=== PATIENT | male | born 1965 | race Caucasian/White ===

== ENCOUNTER 2020-05-30 11:17 | Inpatient (IN) | payer BC, OTHER ==
--- NOTE | 2020-05-30 11:23 | PDOC ---
Rapid Medical Evaluation Time Seen by Provider: 05/30/20 11:21 Medical Evaluation: Allergies Allergy/AdvReac Type Severity Reaction Status Date / Time No Known Allergies Allergy Verified 05/30/20 11:21 05/30/20 11:21 CC: sent by dr foote for partial amputation of 2nd toe of rt foot , infection x 3 months ExaM: ortho shoe to rt foot. 2nd te covered PlaN: labs, Discharge Disposition - Diagnosis Toe infection - Referrals - Patient Instructions - Post Discharge Activity
--- NOTE | 2020-05-30 12:26 | EKG ---
Test Reason : Blood Pressure : / mmHG Vent. Rate : 075 BPM Atrial Rate : 075 BPM P-R Int : 148 ms QRS Dur : 122 ms QT Int : 366 ms P-R-T Axes : 043 -23 010 degrees QTc Int : 408 ms NORMAL SINUS RHYTHM INFERIOR INFARCT , AGE UNDETERMINED ABNORMAL ECG NO PREVIOUS ECGS AVAILABLE Confirmed by KELSEY FARIAS MD ([id number]) on 05/30/2020 12:26:33 PM Referred By: Confirmed By:KELSEY FARIAS MD
[2020-05-30] MEDS ORDERED: PIPERACILLIN/TAZOB 3.375 GM 3.375 GM in DEXTROSE 5%-WATER - 50 ML IVPB ONE (12:27)
[2020-05-30] MEDS ORDERED: VANCOMYCIN 1 GM in D5W (PRE-DOCKED) 1,000 MG/250 ML IVPB ONE (12:27)
--- NOTE | 2020-05-30 12:27 | PDOC ---
History of Present Illness - General Chief Complaint: Wound Stated Complaint: SENT BY PCP Time Seen by Provider: 05/30/20 11:21 - History of Present Illness Initial Comments: Dat Mendieta is a 54 y/o male with PMH significant for DM, HTN, lower extremity stents, s/p right great toe amputation, right second toe osteomyelitis for the past several months, seen at the wound center and hyperbaric center, sent in by Dr. Lawson today for admission for partial amputation of right 2nd toe for osteo and non healing wound. Denies fever/chills. Denies chest pain/shortness of breath. Denies abd pain. Denies back pain. Denies leg swelling. Denies bleeding or discharge from the toe. Took xarelto and plavix this morning. Past History - Medical History Allergies/Adverse Reactions: Allergies Allergy/AdvReac Type Severity Reaction Status Date / Time No Known Allergies Allergy Verified 05/30/20 11:21 Home Medications: Ambulatory Orders Atorvastatin Ca [Lipitor] 20 mg PO HS 10/13/19 Cinnamon Bark [Cinnamon] 1 tab PO DAILY 10/13/19 Clopidogrel Bisulfate [Plavix] 75 mg PO DAILY 10/13/19 Empagliflozin [Jardiance] 10 mg PO DAILY 10/13/19 Gabapentin 300 mg PO BID 10/13/19 Lisinopril 10 mg PO DAILY 10/13/19 Metformin HCl [Glucophage] 1,000 mg PO BID 10/13/19 Metoprolol Succinate 1 tab PO DAILY 10/13/19 Rivaroxaban [Xarelto] 2.5 mg PO BID 10/13/19 Sitagliptin Phosphate [Januvia] 100 mg PO DAILY 10/13/19 Vitamin D - 1 tab PO DAILY 10/13/19 Anemia: No Asthma: No Cancer: No Cardiac Disorders: No CVA: No COPD: No CHF: No Dementia: No Diabetes: Yes GI Disorders: No Disorders: No HTN: Yes Hypercholesterolemia: Yes Liver Disease: No Seizures: No Thyroid Disease: No - Surgical History Abdominal Surgery: No Appendectomy: No Cardiac Surgery: No Cholecystectomy: No Lung Surgery: No Neurologic Surgery: No Orthopedic Surgery: Yes (left foot titanium) - Immunization History Immunization Up to Date: Yes - Psycho-Social/Smoking History Smoking History: Never smoked Have you smoked in the past 12 months: No If you are a former smoker, when did you quit?: 3 yrs ago - Substance Abuse Hx (Audit-C & DAST Scrn) How often the patient has a drink containing alcohol: Never Score: In Men: 4 or > Positive; In Women: 3 or > Positive: 0 Screen Result (Pos requires Nsg. Audit-10AR): Negative In the last yr the pt used illegal drug/Rx for NonMed reason: No Score: Yes response is considered Positive: 0 Screen Result (Positive result requires Nsg. DAST-10): Negative Review of Systems - Review of Systems Able to Perform ROS?: Yes Constitutional: No: Chills, Diaphoresis, Fever, Weakness HEENTM: No: Ear Discharge, Nose Bleeding, Throat Pain, Throat Swelling Respiratory: No: Cough, Shortness of Breath Cardiac (ROS): No: Chest Pain, Edema, Lightheadedness, Palpitations, Syncope ABD/GI: No: Abdominal Distended, Abd. Pain w/ defecation, Nausea, Vomiting : No: Burning, Dysuria, Discharge, Frequency, Flank Pain, Hematuria, Incontinence Musculoskeletal: No: Back Pain, Joint Swelling, Joint Stiffness Integumentary: Yes: Lesions (non healing ulcers over 2nd right toe ). No: Bruising Neurological: No: Headache, Numbness, Tremors Psychiatric: No: Frequent Crying, Change in Appetite Endocrine: No: Intolerance to Cold, Intolerance to Heat Hematologic/Lymphatic: No: Anemia *Physical Exam - Vital Signs Last Vital Signs Temp Pulse Resp BP Pulse Ox 82 20 138/79 100 05/30/20 11:22 05/30/20 11:22 05/30/20 11:22 05/30/20 11:22 - Physical Exam General Appearance: Yes: Nourished, Appropriately Dressed. No: Apparent Distress HEENT: positive: EOMI, ANTONELLA, Normal ENT Inspection Neck: positive: Trachea midline, Normal Thyroid, Supple. negative: Tender, Rigid Respiratory/Chest: positive: Lungs Clear, Normal Breath Sounds. negative: Chest Tender, Respiratory Distress, Accessory Muscle Use Cardiovascular: positive: Regular Rhythm, Regular Rate Vascular Pulses: Femoral (R): 1+, Femoral (L): 1+, Dorsalis-Pedis (R): 1+, Doralis-Pedis (L): 1+ Gastrointestinal/Abdominal: negative: Normal Bowel Sounds, Tender, Soft, Organomegaly, Pulsatile Mass Musculoskeletal: positive: Normal Inspection. negative: CVA Tenderness Extremity: positive: Other (non healing ulcer over right 2nd toe, no bleeding or discharge, right great toe amputation, no erythema) ED Treatment Course - LABORATORY CBC & Chemistry Diagram: 05/31/20 07:09 05/31/20 07:09 Medical Decision Making - Medical Decision Making 54M hx of osteo and non healing wound over right 2nd toe for the past several months sent in for admission for right partial 2nd toe amputation tomorrow. No systemic infections symptoms. -cbc, cmp -ekg, trop, cxr -coags -type and screen -vanc zosyn 05/30/20 12:53 D/w Dr. Prasad who accepts the patient for admission. Labs reviewed. Laboratory Last Values WBC 8.1 K/mm3 (4.0-10.0) 05/30/20 11:40 RBC 4.09 M/mm3 (4.00-5.60) 05/30/20 11:40 Hgb 11.5 GM/dL (11.7-16.9) L 05/30/20 11:40 Hct 35.5 % (35.4-49) 05/30/20 11:40 MCV 86.9 fl (80-96) 05/30/20 11:40 MCH 28.1 pg (25.7-33.7) 05/30/20 11:40 MCHC 32.4 g/dl (32.0-35.9) 05/30/20 11:40 RDW 15.3 % (11.9-15.9) 05/30/20 11:40 Plt Count 257 K/MM3 (134-434) 05/30/20 11:40 MPV 8.8 fl (7.5-11.1) 05/30/20 11:40 Absolute Neuts (auto) 5.6 K/mm3 (1.5-8.0) 05/30/20 11:40 Neutrophils % 68.7 % (42.8-82.8) 05/30/20 11:40 Lymphocytes % 20.7 % (8-40) 05/30/20 11:40 Monocytes % 8.4 % (3.8-10.2) 05/30/20 11:40 Eosinophils % 1.9 % (0-4.5) 05/30/20 11:40 Basophils % 0.3 % (0-2.0) 05/30/20 11:40 Nucleated RBC % 0 % (0-0) 05/30/20 11:40 ESR 71 mm/hr (0-20) H 05/30/20 12:08 Sodium 137 mmol/L (136-145) 05/30/20 11:40 Potassium 5.3 mmol/L (3.5-5.1) H 05/30/20 11:40 Chloride 106 mmol/L (98-107) 05/30/20 11:40 Carbon Dioxide 20 mmol/L (21-32) L 05/30/20 11:40 Anion Gap 11 MMOL/L (8-16) 05/30/20 11:40 BUN 39.9 mg/dL (7-18) H 05/30/20 11:40 Creatinine 1.6 mg/dL (0.55-1.3) H 05/30/20 11:40 Est GFR (CKD-EPI)AfAm 55.39 05/30/20 11:40 Est GFR (CKD-EPI)NonAf 47.79 05/30/20 11:40 Random Glucose 124 mg/dL (74-106) H 05/30/20 11:40 Calcium 9.2 mg/dL (8.5-10.1) 05/30/20 11:40 Total Bilirubin 0.3 mg/dL (0.2-1) 05/30/20 11:40 AST 16 U/L (15-37) 05/30/20 11:40 ALT 25 U/L (13-61) 05/30/20 11:40 Alkaline Phosphatase 101 U/L (45-117) 05/30/20 11:40 Creatine Kinase 127 U/L (26-308) 05/30/20 11:40 Troponin I < 0.02 ng/ml (0.00-0.05) 05/30/20 11:40 C-Reactive Protein 0.8 MG/DL (0.00-0.3) H 05/30/20 11:40 Total Protein 7.8 g/dl (6.4-8.2) 05/30/20 11:40 Albumin 3.8 g/dl (3.4-5.0) 05/30/20 11:40 Lipase 317 U/L (73-393) 05/30/20 11:40 Urine Color Yellow 05/30/20 11:38 Urine Appearance Clear 05/30/20 11:38 Urine pH 5.0 (5.0-8.0) 05/30/20 11:38 Ur Specific [place] 1.023 (1.010-1.035) 05/30/20 11:38 Urine Protein 3+ (NEGATIVE) H 05/30/20 11:38 Urine Glucose (UA) 3+ (NEGATIVE) H 05/30/20 11:38 Urine Ketones Negative (NEGATIVE) 05/30/20 11:38 Urine Blood Negative (NEGATIVE) 05/30/20 11:38 Urine Nitrite Negative (NEGATIVE) 05/30/20 11:38 Urine Bilirubin Negative (NEGATIVE) 05/30/20 11:38 Urine Urobilinogen 0.2 mg/dL (0.2-1.0) 05/30/20 11:38 Ur Leukocyte Esterase Negative (NEGATIVE) 05/30/20 11:38 Urine WBC (Auto) 1 /uL (0-25.8) 05/30/20 11:38 Urine RBC (Auto) 9 /uL (0-23.9) 05/30/20 11:38 Urine Casts (Auto) 1 /uL (0-3.1) 05/30/20 11:38 U Epithel Cells (Auto) 1 /uL (0-25.1) 05/30/20 11:38 Urine Bacteria (Auto) 6 /uL (0-1359) 05/30/20 11:38 Blood Type O POSITIVE 05/30/20 11:40 Antibody Screen Negative 05/30/20 11:40 CXR negative for acute chest pathology. EKG shows 75 bpm, NSR, nml axis, no ST elevation, intervals wnl. Discharge - Discharge Information Problems reviewed: Yes Clinical Impression/Diagnosis: Toe infection, Osteomyelitis Condition: Stable - Admission Yes - Follow up/Referral - Patient Discharge Instructions - Post Discharge Activity
[2020-05-30] MEDS ORDERED: VANCOMYCIN 1 GRAM (PRE-DOCKED) 1,000 MG/250 ML BAG IVPB ONE (12:41)
--- NOTE | 2020-05-30 12:59 | HP ---
CHIEF COMPLAINT: R 2nd toe OM HISTORY OF PRESENT ILLNESS: 54 M HTN, HLD, T2DM, PVD s/p stents, s/p R big toe amputation, charcot joints, now presents w/ suspected OM of R 2nd toe. Pt. was sent from Dr. Hawkins office (podiatry) for planned debridement/amputation of R 2nd toe in AM. s/p R big toe amputation, went through several months of hyperbaric O2 therapy, now found w/ suspected R 2nd toe OM. Pt. otherwise denies fever/chills/SOB/CP/dizziness/cough/LOC/abdominal pain. Endorses some pain in R foot otherwise is able to ambulate. Was given Vanc/Zosyn in ED. Planned for surgery in AM (pt. however took Xarelto/Plavix) in AM. ER course was notable for: (1) Zosyn/Vanc given (2) OM R 2nd toe Recent Travel: denies PAST MEDICAL HISTORY: as above PAST SURGICAL HISTORY: L foot debridement Social History: denies x3 Allergies No Known Allergies Allergy (Verified 05/30/20 11:21) HOME MEDICATIONS: Home Medications Medication Instructions Recorded Atorvastatin Ca [Lipitor] 20 mg PO HS 10/13/19 Cinnamon Bark [Cinnamon] 1 tab PO DAILY 10/13/19 Clopidogrel Bisulfate [Plavix] 75 mg PO DAILY 10/13/19 Empagliflozin [Jardiance] 10 mg PO DAILY 10/13/19 Gabapentin 300 mg PO BID 10/13/19 Lisinopril 10 mg PO DAILY 10/13/19 Metformin HCl [Glucophage] 1,000 mg PO BID 10/13/19 Metoprolol Succinate 1 tab PO DAILY 10/13/19 Rivaroxaban [Xarelto] 2.5 mg PO BID 10/13/19 Sitagliptin Phosphate [Januvia] 100 mg PO DAILY 10/13/19 Vitamin D - 1 tab PO DAILY 10/13/19 PHYSICAL EXAMINATION GA comfortable, eating lunch, AAOx3 HEENT nC/AT, EOMI, no JVD, neck supple, no oral thrush Chest CTAB, no crackles or wheezing CVS S1, S2+, RRR Abd Soft, obese, NT, ND Ext RLE w/ 2nd toe gangrene w/o appreciable pus/discharge, faint pedal pulses b/l, no LE edema, Charcot joints LE b/l Vital Signs - 24 hr 05/30/20 11:22 Pulse Rate 82 Respiratory 20 Rate Blood Pressure 138/79 O2 Sat by Pulse 100 Oximetry (%) ASSESSMENT/PLAN: 54 M R 2nd toe OM s/p R big toe amputation ROLAND/CKD w/ nephrotic range proteinuria HTN HLD T2DM PVD s/p stents Plan: Restart statin, hold AP agents, hold further AC Send SPEP/UPEP, urine lytes/CRE for ROLAND/CKD Renal consult ID consult Vascular following Podiatry following Cardiology for clearance ISS, basal insulin PRN for glucose management NPO MN for surgery in AM Visit type - Emergency Visit Emergency Visit: Yes ED Registration Date: 05/30/20 Care time: The patient presented to the Emergency Department on the above date and was hospitalized for further evaluation of their emergent condition. - New Patient This patient is new to me today: Yes Date on this admission: 05/30/20 - Critical Care Critical Care patient: No
[2020-05-30 13:05] LABS: BASO % 0.3 % (0-2.0); EOS % 1.9 % (0-4.5); HEMATOCRIT 35.5 % (35.4-49); HEMOGLOBIN 11.5 GM/dL (11.7-16.9); LYMPH % 20.7 % (8-40); MCH 28.1 pg (25.7-33.7); MCHC 32.4 g/dl (32.0-35.9); MEAN CELL VOLUME 86.9 fl (80-96); MEAN PLT VOLUME 8.8 fl (7.5-11.1); MONO % 8.4 % (3.8-10.2); NEUT % 68.7 % (42.8-82.8); PLATELET COUNT 257 K/MM3 (134-434); RBC 4.09 M/mm3 (4.00-5.60); RDW 15.3 % (11.9-15.9); WHITE BLOOD COUNT 8.1 K/mm3 (4.0-10.0)
[2020-05-30 13:32] LABS: ALBUMIN 3.8 g/dl (3.4-5.0); ALK PHOS 101 U/L (45-117); ANION GAP 11 MMOL/L (8-16); BILIRUBIN,TOTAL 0.3 mg/dL (0.2-1); BLOOD UREA NITROGEN 39.9 mg/dL (7-18); CALCIUM 9.2 mg/dL (8.5-10.1); CHLORIDE 106 mmol/L (98-107); CO2 20 mmol/L (21-32); CREATININE 1.6 mg/dL (0.55-1.3); GLUCOSE,RANDOM 124 mg/dL (74-106); LIPASE 317 U/L (73-393); POTASSIUM 5.3 mmol/L (3.5-5.1); SGOT/AST 16 U/L (15-37); SGPT/ALT 25 U/L (13-61); SODIUM 137 mmol/L (136-145); TOT PROT 7.8 g/dl (6.4-8.2)
[2020-05-30 13:37] LABS: EPI CELLS 1 /uL (0-25.1); HYALINE CASTS 1 /uL (0-3.1); URINE APPEARANCE CLEAR; URINE BACTERIA 6 /uL (0-1359); URINE BILIRUBIN NEGATIVE (NEGATIVE); URINE COLOR YELLOW; URINE GLUCOSE (UA) 3+ (NEGATIVE); URINE KETONE NEGATIVE (NEGATIVE); URINE LEUK ESTERASE NEGATIVE (NEGATIVE); URINE NITRITE NEGATIVE (NEGATIVE); URINE PROTEIN 3+ (NEGATIVE); URINE RBC 9 /uL (0-23.9); URINE UROBILINOGEN 0.2 mg/dL (0.2-1.0); URINE WBC 1 /uL (0-25.8)
[2020-05-30] MEDS ORDERED: PIPERACILLIN/TAZOB 3.375 GM 3.375 GM/50 ML BAG IVPB ONE (13:54)
--- NOTE | 2020-05-30 14:31 | PDOC ---
Documentation entered by Bipin Prieto SCRIBE, acting as scribe for Karine Leon MD. Karine Leon MD: This documentation has been prepared by the Conner rose Xhesika, SCRIBE, under my direction and personally reviewed by me in its entirety. I confirm that the documentation accurately reflects all work, treatment, procedures, and medical decision making performed by me. Attending Attestation - Resident Resident Name: Walt Smith - ED Attending Attestation I have performed the following: I have examined & evaluated the patient, The case was reviewed & discussed with the resident, I agree w/resident's findings & plan, Exceptions are as noted - HPI HPI: 05/30/20 12:36 The patient is a 54y/o M with a PMH of who presents to the ED sent by Dr. Lawson for abx and partial amputation of 2nd toe of R foot. Pt has had an 2nd toe of R foot infection x 3 months. 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 He has a prior great toe amputation on the same foot no chest pain no shortness of breath no leg edema no leg erythema patient is on aspirin and Plavix which she took this a.m. Allergies: NKDA 05/30/20 14:18 - Physicial Exam PE: 05/30/20 14:20 Awake alert no acute distress lungs are clear bilaterally heart is regular 30 murmurs rubs or gallops abdomen is soft and nontender extremities are warm and well-perfused there is 2+ DP pulses bilaterally. The right foot shows a amputated great toe the second toe shows a small necrotic dry wound at the distal tip there is mild erythema to the DIP joint of that toe. Otherwise skin is warm and dry and intact - Medical Decision Making 05/30/20 14:22 54-yo M h/o pvd, s/p leg vascular stent, DM HTN prior toe amputations, here today with necrotic second toe and osteomyeleitis. plan to admit for iv abx, and likley amputation by podiatry. plan jaxon and jarad given, admt labs pending. 05/30/20 14:32 Discharge - Discharge Information Problems reviewed: Yes Clinical Impression/Diagnosis: Toe infection, Osteomyelitis - Follow up/Referral - Patient Discharge Instructions - Post Discharge Activity
[2020-05-30] MEDS ORDERED: SODIUM CHLORIDE 1,000 ML IV STA (16:36)
[2020-05-30] MEDS ORDERED: SODIUM CHLORIDE 0.9% 1000 ML INFUS.BAG IV ONE (16:37)
[2020-05-30 19:14] VITALS: BMI 35.2
[2020-05-30] MEDS ORDERED: ATORVASTATIN CA 40 MG TABLET (FP) PO SCH (22:00)
[2020-05-30] MEDS: GABAPENTIN 300 MG CAPSULE PO SCH (22:55)
[2020-05-30] MEDS: INSULIN SLIDING SCALE (NOVOLOG) 1 VIAL SQ SCH (22:59)
[2020-05-31] MEDS: INSULIN SLIDING SCALE (NOVOLOG) 1 VIAL SQ SCH ×4 (06:09→22:30)
[2020-05-31 08:02] LABS: BASO % 0.5 % (0-2.0); EOS % 2.5 % (0-4.5); HEMATOCRIT 33.6 % (35.4-49); LYMPH % 25.2 % (8-40); MCH 28.6 pg (25.7-33.7); MCHC 32.7 g/dl (32.0-35.9); MEAN CELL VOLUME 87.5 fl (80-96); MEAN PLT VOLUME 8.4 fl (7.5-11.1); MONO % 9.7 % (3.8-10.2); NEUT % 62.1 % (42.8-82.8); PLATELET COUNT 205 K/MM3 (134-434); RBC 3.84 M/mm3 (4.00-5.60); RDW 15.3 % (11.9-15.9); WHITE BLOOD COUNT 6.8 K/mm3 (4.0-10.0)
[2020-05-31 08:21] LABS: ALBUMIN 3.2 g/dl (3.4-5.0); BILIRUBIN,TOTAL 0.3 mg/dL (0.2-1); BLOOD UREA NITROGEN 34.9 mg/dL (7-18); CALCIUM 8.4 mg/dL (8.5-10.1); CREATININE 1.5 mg/dL (0.55-1.3); POTASSIUM 4.8 mmol/L (3.5-5.1); TOT PROT 6.9 g/dl (6.4-8.2)
[2020-05-31] MEDS ORDERED: PT OWN MED DRAWER 7, Y5N ONE (09:00)
[2020-05-31] MEDS: GABAPENTIN 300 MG CAPSULE PO SCH ×2 (09:13→22:30)
[2020-05-31] MEDS ORDERED: metoPROLOL SUCCINATE 25 MG TAB.SR.24H (FP) PO SCH (10:00)
--- NOTE | 2020-05-31 10:29 | CONSULT ---
Consult - text type - Consultation Consultation Note: Podiatry Consultation: 54 year old insulin dependent diabetic male sent from my office for admission for worsening cellulitis and right second digit diabetic ulcer, osteomyelitis. Denies F/V/N/C/SOB/CP. Afebrile. Patient has several month history of non-healing ulcer of the right second digit. He has been revascularized in the past by Dr. Echols vascular sx at [facility]. Xray of the right foot in office demonstrates lytic changes of the second distal phalanx. MRI positive for osteomyelitis of the right second distal phalanx. His noted worsening redness to the toe which prompted admission. PMHx: IDDM, HTN, HLP, PVD s/p stents, L foot charcot reconstructive sx Meds: noted in chart ALL: NKMA REVA: R foot: pedal pulses nonpalpable, TG wnl, CFT brisk to all digits. There are no ischemic changes to the foot. The foot is warm and well perfused. There is a right second digit distal tuft diabetic ulcer with mixed fibrogranular base, hyperkeratotic edges, probes deep. Mild serosanguinous drainage, no deep purulence, moderate erythema to the distal aspect of the second digit. There is no soft tissue crepitus, no streaking ascending cellulitis, no signs of acute infection ESR: 71 R foot MRI: demonstrates osteomyelitis of the second distal phalanx Imp: 54 year old diabetic male with right second digit diabetic ulcer, osteomyelitis I discussed treatment options at length with patient. I have recommended partial amputation right second digit and patient is in agreement. NPO currently for OR this afternoon. IV abx per infectious disease. Dr. Zapien is on the case, arterial studies performed in wound healing center. We will watch him closely postoperatively, he may need angiogram in the future if the surgical site does not heal. Will closely follow. Karrie Hawkins DPM
--- NOTE | 2020-05-31 10:45 | CONSULT ---
Consult Consult Specialty:: Nephrology Reason for Consultation:: CKD - History of Present Illness Chief Complaint: right 2nd toe pain History of Present Illness: Pt is a 54 year old male with pmhx of htn, hld, dm, and pvd who was sent in from podiatry for suspected OM of right 2nd toe. 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 He denies history of CKD. He denies hematuria or dysuria. He denies chest pain or shortness of breath. - History Source History Provided By: Patient - Past Medical History Cardio/Vascular: Yes: HTN, Hyperlipdemia Endocrine: Yes: Diabetes Mellitus - Smoking History Smoking history: Never smoked Have you smoked in the past 12 months: No If you are a former smoker, when did you quit?: 3 yrs ago Home Medications - Allergies Allergies/Adverse Reactions: Allergies Allergy/AdvReac Type Severity Reaction Status Date / Time No Known Allergies Allergy Verified 05/30/20 11:21 - Home Medications Home Medications: Ambulatory Orders Atorvastatin Ca [Lipitor] 20 mg PO HS 10/13/19 Cinnamon Bark [Cinnamon] 1 tab PO DAILY 10/13/19 Clopidogrel Bisulfate [Plavix] 75 mg PO DAILY 10/13/19 Empagliflozin [Jardiance] 10 mg PO DAILY 10/13/19 Gabapentin 300 mg PO BID 10/13/19 Lisinopril 10 mg PO DAILY 10/13/19 Metformin HCl [Glucophage] 1,000 mg PO BID 10/13/19 Metoprolol Succinate 1 tab PO DAILY 10/13/19 Rivaroxaban [Xarelto] 2.5 mg PO BID 10/13/19 Sitagliptin Phosphate [Januvia] 100 mg PO DAILY 10/13/19 Vitamin D - 1 tab PO DAILY 10/13/19 Family Medical History Family History: Denies Review of Systems - Review of Systems Constitutional: reports: No Symptoms Eyes: reports: No Symptoms HENT: reports: No Symptoms Neck: reports: No Symptoms Cardiovascular: reports: No Symptoms Respiratory: reports: No Symptoms Gastrointestinal: reports: No Symptoms Genitourinary: reports: No Symptoms Musculoskeletal: reports: No Symptoms Integumentary: reports: No Symptoms Neurological: reports: No Symptoms Endocrine: reports: No Symptoms Hematology/Lymphatic: reports: No Symptoms Psychiatric: reports: No Symptoms Physical Exam Vital Signs: Vital Signs Temperature 97.8 F 05/31/20 06:00 Pulse Rate 67 05/31/20 06:00 Respiratory Rate 20 05/31/20 06:00 Blood Pressure 130/78 05/31/20 06:00 O2 Sat by Pulse Oximetry (%) 100 05/30/20 21:00 Constitutional: Yes: Calm Eyes: Yes: Conjunctiva Clear HENT: Yes: Atraumatic Cardiovascular: Yes: S1, S2 Respiratory: Yes: CTA Bilaterally Gastrointestinal: Yes: Soft Renal/: Yes: WNL Edema: No Neurological: Yes: Oriented Psychiatric: Yes: Oriented Labs: CBC, BMP 05/31/20 07:09 05/31/20 07:09 Laboratory Tests 05/30/20 05/30/20 05/30/20 11:38 11:40 11:40 Sodium 137 Potassium 5.3 H Creatinine 1.6 H Urine Protein 3+ H Urine Blood Negative ANJELICA M-Kyle COVID-19 (ELIAS) Not detected 05/30/20 05/31/20 19:45 07:09 Sodium 139 Potassium 4.8 Creatinine 1.5 H Urine Protein Urine Blood ANJELICA M-Kyle Pending COVID-19 (ELIAS) Imaging - Results Chest X-ray: Report Reviewed Problem List - Problems (1) HTN (hypertension) Code(s): I10 - ESSENTIAL (PRIMARY) HYPERTENSION (2) Hypercholesterolemia Code(s): E78.00 - PURE HYPERCHOLESTEROLEMIA, UNSPECIFIED (3) Osteomyelitis Code(s): M86.9 - OSTEOMYELITIS, UNSPECIFIED Assessment/Plan Current Medications Generic Name Dose Route Start Last Admin Trade Name Freq PRN Reason Stop Dose Admin Atorvastatin Calcium 40 mg 05/30/20 22:00 05/30/20 22:55 Lipitor - PO 40 mg HS FIDELINA Administration Gabapentin 300 mg 05/30/20 22:00 05/31/20 09:13 Neurontin - PO 300 mg BID FIDELINA Administration Insulin Aspart 1 vial 05/30/20 22:00 05/31/20 06:09 Novolog Vial Sliding Scale - SQ Not Given ACHS [facility] Protocol Metoprolol Succinate 12.5 mg 05/31/20 10:00 05/31/20 09:14 Toprol Xl - PO 12.5 mg DAILY FIDELINA Administration Laboratory Tests 05/30/20 11:38 Urine Protein 3+ H Urine Glucose (UA) 3+ H Impression 1. CKD 2. dm 3. htn 4. hld 5. osteo 6. pvd 7. protienuria Plan - check renal ultrasound - check ua - check prt to long wall mining machine tender ratio - will need proteinuria workup - check a1c
--- NOTE | 2020-05-31 12:32 | CON.ID ---
Consult Consult Specialty:: infectious diseases Referred by:: Reason for Consultation:: osteo of the rt 2nd toe - History of Present Illness Chief Complaint: non healing wound of the second toe History of Present Illness: 54 M HTN, HLD, T2DM, PVD s/p stents, s/p R big toe amputation, charcot joints, now presents with OM of R 2nd toe. Pt. was sent from Dr. Hawkins office (podiatry) for planned debridement/amputation of R 2nd toe in AM. s/p R big toe amputation, went through several months of hyperbaric O2 therapy, now found w/ suspected R 2nd toe OM. Pt. otherwise denies fever/chills/SOB/CP/dizziness/cough/LOC/abdominal pain. Endorses some pain in R foot otherwise is able to ambulate. Was given Vanc/Zosyn in ED. planned for surgery - History Source History Provided By: Patient Limitations to Obtaining History: No Limitations - Smoking History Smoking history: Never smoked Have you smoked in the past 12 months: No If you are a former smoker, when did you quit?: 3 yrs ago Home Medications - Allergies Allergies/Adverse Reactions: Allergies Allergy/AdvReac Type Severity Reaction Status Date / Time No Known Allergies Allergy Verified 05/30/20 11:21 - Home Medications Home Medications: Ambulatory Orders Atorvastatin Ca [Lipitor] 20 mg PO HS 10/13/19 Cinnamon Bark [Cinnamon] 1 tab PO DAILY 10/13/19 Clopidogrel Bisulfate [Plavix] 75 mg PO DAILY 10/13/19 Empagliflozin [Jardiance] 10 mg PO DAILY 10/13/19 Gabapentin 300 mg PO BID 10/13/19 Lisinopril 10 mg PO DAILY 10/13/19 Metformin HCl [Glucophage] 1,000 mg PO BID 10/13/19 Metoprolol Succinate 1 tab PO DAILY 10/13/19 Rivaroxaban [Xarelto] 2.5 mg PO BID 10/13/19 Sitagliptin Phosphate [Januvia] 100 mg PO DAILY 10/13/19 Vitamin D - 1 tab PO DAILY 10/13/19 Review of Systems - Review of Systems Constitutional: reports: No Symptoms Eyes: reports: No Symptoms HENT: reports: No Symptoms Neck: reports: No Symptoms Cardiovascular: reports: No Symptoms Respiratory: reports: No Symptoms Gastrointestinal: reports: No Symptoms Genitourinary: reports: No Symptoms Musculoskeletal: reports: Other Integumentary: reports: Erythema, Wound Neurological: reports: No Symptoms Endocrine: reports: No Symptoms Hematology/Lymphatic: reports: No Symptoms Psychiatric: reports: No Symptoms Physical Exam Vital Signs: Vital Signs Temperature 97.8 F 05/31/20 06:00 Pulse Rate 67 05/31/20 06:00 Respiratory Rate 20 05/31/20 09:00 Blood Pressure 130/78 05/31/20 06:00 O2 Sat by Pulse Oximetry (%) 100 05/30/20 21:00 Constitutional: Yes: Well Nourished, No Distress, Calm Eyes: Yes: Conjunctiva Clear HENT: Yes: Atraumatic, Normocephalic Neck: Yes: Supple, Trachea Midline Cardiovascular: Yes: Regular Rate and Rhythm Respiratory: Yes: Regular, CTA Bilaterally Gastrointestinal: Yes: Normal Bowel Sounds, Soft Musculoskeletal: Yes: WNL Extremities: Yes: Erythema, Other Integumentary: Yes: Erythema, Other (wound of rt 2nd toe) Wound/Incision: Yes: Dressing Removed, Other (wound looked at) Neurological: Yes: Alert, Oriented Psychiatric: Yes: Alert, Oriented Labs: CBC, BMP 05/31/20 07:09 05/31/20 07:09 Imaging - Results Chest X-ray: Report Reviewed, Image Reviewed MRI: Report Reviewed, Image Reviewed Assessment/Plan this patient with multiple medical issues with pvd and amputation of the big toe coming in with osteo of the rt 2nd toe plan is for surgery i am going to hold off of abx will await for patient to get surgery and then will evaluate the cx and decide wound care rest as per podiatry
--- NOTE | 2020-05-31 14:33 | CON.CARD ---
Consult Consult Specialty:: Cardiology Referred by:: Hospitalist Reason for Consultation:: Cardiac evaluation - History of Present Illness Chief Complaint: Admitted for toe amputation History of Present Illness: Patient is a 54 year old male with underlying history of HTN, hypercholesterolemia, type 2 DM, PAD s/p stent and toe amputation who presented with osteomyelitis of right 2nd toe and awaits amputation. He denies chest pain, shortness of breath or palpitations. He denies paroxysmal nocturnal dyspnea or orthopnea. He denies fever or chills. He denies nausea, vomiting, diarrhea or abdominal pain. He denies headache or lightheadedness. - History Source History Provided By: Patient, Medical Record Limitations to Obtaining History: No Limitations - Past Medical History Cardio/Vascular: Yes: HTN, Hyperlipdemia, Other (PAD s/p stent) Infectious Disease: Yes: Other (Osteomyelitis) Endocrine: Yes: Diabetes Mellitus - Past Surgical History Past Surgical History: Yes: Stent Additional Surgical History: toe amputation - Alcohol/Substance Use Hx Alcohol Use: No History of Substance Use: reports: None - Smoking History Smoking history: Never smoked Have you smoked in the past 12 months: No If you are a former smoker, when did you quit?: 3 yrs ago Home Medications - Allergies Allergies/Adverse Reactions: Allergies Allergy/AdvReac Type Severity Reaction Status Date / Time No Known Allergies Allergy Verified 05/30/20 11:21 - Home Medications Home Medications: Ambulatory Orders Atorvastatin Ca [Lipitor] 20 mg PO HS 10/13/19 Cinnamon Bark [Cinnamon] 1 tab PO DAILY 10/13/19 Clopidogrel Bisulfate [Plavix] 75 mg PO DAILY 10/13/19 Empagliflozin [Jardiance] 10 mg PO DAILY 10/13/19 Gabapentin 300 mg PO BID 10/13/19 Lisinopril 10 mg PO DAILY 10/13/19 Metformin HCl [Glucophage] 1,000 mg PO BID 10/13/19 Metoprolol Succinate 1 tab PO DAILY 10/13/19 Rivaroxaban [Xarelto] 2.5 mg PO BID 10/13/19 Sitagliptin Phosphate [Januvia] 100 mg PO DAILY 10/13/19 Vitamin D - 1 tab PO DAILY 10/13/19 Family Medical History Other Family History: DM Review of Systems - Review of Systems Constitutional: denies: Chills, Fever Cardiovascular: denies: Chest Pain, Palpitations, Shortness of Breath Respiratory: denies: Cough, Hemoptysis, Orthopnea, PND, SOB, SOB on Exertion Gastrointestinal: denies: Abdominal Pain, Constipation, Diarrhea, Melena, Nausea , Rectal Bleeding, Vomiting Musculoskeletal: denies: Back Pain, Joint Pain Neurological: denies: Dizziness, Headache, Seizure, Syncope Vital Signs: Vital Signs Temperature 97.8 F 05/31/20 06:00 Pulse Rate 67 05/31/20 06:00 Respiratory Rate 20 05/31/20 09:00 Blood Pressure 130/78 05/31/20 06:00 O2 Sat by Pulse Oximetry (%) 100 05/30/20 21:00 Eyes: Yes: PERRL HENT: Yes: Atraumatic Neck: Yes: Supple Respiratory: Yes: CTA Bilaterally Gastrointestinal: Yes: Normal Bowel Sounds, Soft. No: Tenderness Cardiovascular: Yes: Regular Rate and Rhythm JVD: No PMI: Non-Displaced Heart Sounds: Yes: S1, S2 Murmur: No: Systolic Murmur Extremities: Yes: Amputation Edema: No - Other Data Labs, Other Data: CBC, BMP 05/31/20 07:09 05/31/20 07:09 Laboratory Results - last 24 hr 05/31/20 05/31/20 05/31/20 07:09 07:09 11:44 WBC 6.8 RBC 3.84 L Hgb 11.0 L Hct 33.6 L MCV 87.5 MCH 28.6 MCHC 32.7 RDW 15.3 Plt Count 205 D MPV 8.4 Absolute Neuts (auto) 4.3 Neutrophils % 62.1 Lymphocytes % 25.2 D Monocytes % 9.7 Eosinophils % 2.5 Basophils % 0.5 Nucleated RBC % 0 Sodium 139 Potassium 4.8 Chloride 108 H Carbon Dioxide 21 Anion Gap 9 BUN 34.9 H Creatinine 1.5 H Est GFR (CKD-EPI)AfAm 59.88 Est GFR (CKD-EPI)NonAf 51.67 POC Glucometer 110 Random Glucose 116 H Calcium 8.4 L Total Bilirubin 0.3 AST 14 L ALT 21 Alkaline Phosphatase 87 Total Protein 6.9 Albumin 3.2 L COVID-19 (ELIAS) Normal sinus rhythm with hyperacute T, ? inferior infarct Imaging - Results Chest X-ray: Report Reviewed (Unremarkable) EKG: Report Reviewed Problem List - Problems (1) HTN (hypertension) Code(s): I10 - ESSENTIAL (PRIMARY) HYPERTENSION (2) Hypercholesterolemia Code(s): E78.00 - PURE HYPERCHOLESTEROLEMIA, UNSPECIFIED (3) Type 2 diabetes mellitus Code(s): E11.9 - TYPE 2 DIABETES MELLITUS WITHOUT COMPLICATIONS (4) Preoperative clearance Code(s): Z01.818 - ENCOUNTER FOR OTHER PREPROCEDURAL EXAMINATION (5) Osteomyelitis Code(s): M86.9 - OSTEOMYELITIS, UNSPECIFIED Assessment/Plan 1. PAD s/p stent for right 2nd toe amputation 2. HTN 3. Hypercholesterolemia 4. DM PLAN: 1. No absolute contraindication in proceeding with surgery in view of absence of ischemic symptoms, decompensated congestive heart failure or malignant arrhythmia. 2. Continue Metoprolol ER 12.5 mg QD and Atorvastatin 20 mg QHS 3. Lisinopril held for now until renal function improves 4. Currently off Xarelto 2.5 mg BID (given for cardiovascular risk reduction in view of PAD) Use of Clopidogrel to be decided once hemostasis is achieved Further plans are to follow Tavo Nicole MD
[2020-05-31] MEDS ORDERED: LIDOCAINE HCL 2% (20ML MULTI-DOSE VIAL) ONE ×2 (14:47→15:15)
[2020-05-31] MEDS ORDERED: PROPOFOL 20 ML ONE ×2 (15:38)
[2020-05-31] MEDS ORDERED: MIDAZOLAM HCL 2 MG/2 ML SINGLE DOSE VIAL ONE (15:38)
[2020-05-31] MEDS ORDERED: ceFAZolin SODIUM 1 GM VIAL IVPB ONE ×2 (15:53→16:13)
[2020-05-31] MEDS ORDERED: LIDOCAINE HCL 1%, 10 MG/ML (20ML VIAL) INF ONE (16:23)
--- NOTE | 2020-05-31 16:25 | OP ---
Operative Note - Note: Operative Date: 05/31/20 Pre-Operative Diagnosis: osteomyelitis right second digit Operation: right second digit partial amputation Post-Operative Diagnosis: Same as Pre-op Surgeon: Eliot Hawkins Anesthesia: Local, MAC Specimens Removed: right second digit bone and soft tissue Estimated Blood Loss (mls): 15 Operative Report Dictated: Yes
[2020-05-31] MEDS ORDERED: oxyCODONE HCL 5 MG TABLET PO PRN (16:27)
--- NOTE | 2020-05-31 19:37 | PN ---
Physical Exam: SUBJECTIVE: Patient seen and examined at bedside, for OR today for R 2nd toe partial amputation. VSS. OBJECTIVE: Vital Signs Period Temp Pulse Resp BP Sys/[place] Pulse Ox Last 24 Hr 97.8 F-98.7 F 61-73 18-20 101-130/55-78 98-100 GA comfortable, NAD HEENT nC/AT, EOMI, no JVD, neck supple, no oral thrush Chest CTAB, no crackles or wheezing CVS S1, S2+, RRR Abd Soft, obese, NT, ND Ext RLE w/ wound dressing, faint pedal pulses b/l, no LE edema, Charcot joints LE b/l Laboratory Results - last 24 hr 05/30/20 05/30/20 05/31/20 11:40 22:58 06:05 WBC RBC Hgb Hct MCV MCH MCHC RDW Plt Count MPV Absolute Neuts (auto) Neutrophils % Lymphocytes % Monocytes % Eosinophils % Basophils % Nucleated RBC % Sodium Potassium Chloride Carbon Dioxide Anion Gap BUN Creatinine Est GFR (CKD-EPI)AfAm Est GFR (CKD-EPI)NonAf POC Glucometer 113 104 Random Glucose Calcium Total Bilirubin AST ALT Alkaline Phosphatase Total Protein Albumin COVID-19 (ELIAS) Not detected 05/31/20 05/31/20 05/31/20 07:09 07:09 11:44 WBC 6.8 RBC 3.84 L Hgb 11.0 L Hct 33.6 L MCV 87.5 MCH 28.6 MCHC 32.7 RDW 15.3 Plt Count 205 D MPV 8.4 Absolute Neuts (auto) 4.3 Neutrophils % 62.1 Lymphocytes % 25.2 D Monocytes % 9.7 Eosinophils % 2.5 Basophils % 0.5 Nucleated RBC % 0 Sodium 139 Potassium 4.8 Chloride 108 H Carbon Dioxide 21 Anion Gap 9 BUN 34.9 H Creatinine 1.5 H Est GFR (CKD-EPI)AfAm 59.88 Est GFR (CKD-EPI)NonAf 51.67 POC Glucometer 110 Random Glucose 116 H Calcium 8.4 L Total Bilirubin 0.3 AST 14 L ALT 21 Alkaline Phosphatase 87 Total Protein 6.9 Albumin 3.2 L COVID-19 (ELIAS) 05/31/20 17:13 WBC RBC Hgb Hct MCV MCH MCHC RDW Plt Count MPV Absolute Neuts (auto) Neutrophils % Lymphocytes % Monocytes % Eosinophils % Basophils % Nucleated RBC % Sodium Potassium Chloride Carbon Dioxide Anion Gap BUN Creatinine Est GFR (CKD-EPI)AfAm Est GFR (CKD-EPI)NonAf POC Glucometer 104 Random Glucose Calcium Total Bilirubin AST ALT Alkaline Phosphatase Total Protein Albumin COVID-19 (ELIAS) Active Medications Generic Name Dose Route Start Last Admin Trade Name Freq PRN Reason Stop Dose Admin Atorvastatin Calcium 40 mg 05/31/20 22:00 Lipitor - PO HS FIDELINA Gabapentin 300 mg 05/31/20 22:00 Neurontin - PO BID FIDELINA Insulin Aspart 1 vial 05/31/20 22:00 Novolog Vial Sliding Scale - SQ ACHS FIDELINA Protocol Metoprolol Succinate 12.5 mg 06/01/20 10:00 Toprol Xl - PO DAILY FIDELINA Oxycodone HCl 5 mg 05/31/20 16:27 Roxicodone - PO Q4H PRN PAIN LEVEL 1-5 ASSESSMENT/PLAN: 54 M R 2nd toe OM s/p R big toe amputation ROLAND/CKD w/ nephrotic range proteinuria HTN HLD T2DM PVD s/p stents Plan: Follow renal workup Cont. statin, Hold AP/AC Renal consult ID consult Vascular following Podiatry following Cardiology cleared pt. ISS, basal insulin PRN for glucose management Follow post-op recs Visit type - Emergency Visit Emergency Visit: Yes ED Registration Date: 05/30/20 Care time: The patient presented to the Emergency Department on the above date and was hospitalized for further evaluation of their emergent condition. - New Patient This patient is new to me today: No - Critical Care Critical Care patient: No - Discharge Referral Referred to [facility] Med P.C.: No
[2020-05-31] MEDS: ATORVASTATIN CA 40 MG TABLET (FP) PO SCH (22:30)
[2020-06-01 08:25] LABS: BASO % 0.1 % (0-2.0); EOS % 0.3 % (0-4.5); HEMATOCRIT 33.5 % (35.4-49); HEMOGLOBIN 11.2 GM/dL (11.7-16.9); LYMPH % 14.6 % (8-40); MCH 29.1 pg (25.7-33.7); MCHC 33.4 g/dl (32.0-35.9); MEAN CELL VOLUME 87.2 fl (80-96); MEAN PLT VOLUME 8.5 fl (7.5-11.1); MONO % 6.9 % (3.8-10.2); NEUT % 78.1 % (42.8-82.8); PLATELET COUNT 223 K/MM3 (134-434); RBC 3.84 M/mm3 (4.00-5.60); RDW 15.5 % (11.9-15.9); WHITE BLOOD COUNT 8.3 K/mm3 (4.0-10.0)
[2020-06-01 08:28] LABS: ALBUMIN 3.3 g/dl (3.4-5.0); BILIRUBIN,TOTAL 0.3 mg/dL (0.2-1); BLOOD UREA NITROGEN 31.7 mg/dL (7-18); CALCIUM 8.4 mg/dL (8.5-10.1); CREATININE 1.5 mg/dL (0.55-1.3); POTASSIUM 4.6 mmol/L (3.5-5.1); TOT PROT 6.9 g/dl (6.4-8.2)
--- NOTE | 2020-06-01 10:46 | PN ---
Progress Note (short form) - Note Progress Note: Podiatry F/U: Seen/evaluated at bedside NAD. Pain is well controlled. Denies F/V/N/C/SOB/CP. Afebrile. S/p right second digit partial amputation POD#1. REVA: R foot: surgical dressing clean, dry, intact. There is no active bleeding, no bandage strikethrough. Sutures well coapted, no dehiscence noted. There is no purulent drainage, no fluctuance, no streaking ascending cellulitis, no signs of active infection. Minimal tenderness to palpation. No ischemic changes or duskiness to the surgical site. OR Cx: pending Imp: 54 year old diabetic male s/p right second digit partial amputation for osteomyelitis POD#1 1. IV abx per infectious disease 2. DSD applied to right foot 3. Partial WB R heel with surgical shoe 4. F/u operative cultures 5. Will follow Karrie Hawkins DPM
[2020-06-01] MEDS: metoPROLOL SUCCINATE 25 MG TAB.SR.24H (FP) PO SCH (10:53)
[2020-06-01] MEDS: GABAPENTIN 300 MG CAPSULE PO SCH ×2 (10:54→22:16)
[2020-06-01] MEDS: INSULIN SLIDING SCALE (NOVOLOG) 1 VIAL SQ SCH ×4 (11:00→22:16)
--- NOTE | 2020-06-01 11:07 | PN ---
Progress Note, Physician History of Present Illness: POD#1 right second digit partial amputation, no complaints. - Current Medication List Current Medications: Active Medications Atorvastatin Calcium (Lipitor -) 40 mg PO HS [facility] Last Admin: 05/31/20 22:30 Dose: 40 mg Documented by: Gabapentin (Neurontin -) 300 mg PO BID [facility] Last Admin: 06/01/20 10:54 Dose: 300 mg Documented by: Insulin Aspart (Novolog Vial Sliding Scale -) 1 vial SQ ACHS [facility]; Protocol Last Admin: 06/01/20 11:00 Dose: Not Given Documented by: Metoprolol Succinate (Toprol Xl -) 12.5 mg PO DAILY [facility] Last Admin: 06/01/20 10:53 Dose: 12.5 mg Documented by: Oxycodone HCl (Roxicodone -) 5 mg PO Q4H PRN PRN Reason: PAIN LEVEL 1-5 - Objective Vital Signs: Vital Signs Temperature 98.1 F 06/01/20 06:00 Pulse Rate 68 06/01/20 06:00 Respiratory Rate 20 06/01/20 06:00 Blood Pressure 108/76 06/01/20 06:00 O2 Sat by Pulse Oximetry (%) 96 05/31/20 21:00 Constitutional: Yes: No Distress, Calm Neck: Yes: Supple Cardiovascular: Yes: Regular Rate and Rhythm Respiratory: Yes: Regular, CTA Bilaterally Gastrointestinal: Yes: Normal Bowel Sounds, Soft, Abdomen, Obese Extremities: Yes: Amputation (Right 2nd toe amputation) Edema: No Labs: CBC, BMP 06/01/20 06:50 06/01/20 06:50 Problem List - Problems (1) PAD (peripheral artery disease) Code(s): I73.9 - PERIPHERAL VASCULAR DISEASE, UNSPECIFIED (2) CKD (chronic kidney disease) Code(s): N18.9 - CHRONIC KIDNEY DISEASE, UNSPECIFIED Qualifiers: Chronic kidney disease stage: stage 2 (mild) Qualified Code(s): N18.2 - Chronic kidney disease, stage 2 (mild) Assessment/Plan Problem List - Problems (1) HTN (hypertension) Code(s): I10 - ESSENTIAL (PRIMARY) HYPERTENSION (2) Hypercholesterolemia Code(s): E78.00 - PURE HYPERCHOLESTEROLEMIA, UNSPECIFIED (3) Type 2 diabetes mellitus Code(s): E11.9 - TYPE 2 DIABETES MELLITUS WITHOUT COMPLICATIONS (4) Osteomyelitis Code(s): M86.9 - OSTEOMYELITIS, UNSPECIFIED Assessment/Plan 1. PAD s/p stent POD#1 for right second digit partial amputation for osteomyelitis 2. HTN 3. Hypercholesterolemia 4. DM 5. CKD with proteinuria PLAN: 1. Continue Metoprolol ER 12.5 mg QD and Atorvastatin 20 mg QHS 2. Lisinopril held for now until renal function improves 3. Resume Xarelto 2.5 mg BID (given for cardiovascular risk reduction in view of PAD) and Clopidogrel 75 qd once hemostasis is achieved
--- NOTE | 2020-06-01 11:10 | OP ---
DATE OF OPERATION: 05/31/2020 PREOPERATIVE DIAGNOSIS: Osteomyelitis, right 2nd toe. POSTOPERATIVE DIAGNOSIS: Osteomyelitis, right 2nd toe. PROCEDURE: Right 2nd toe partial amputation. SURGEON: Eliot Hawkins DPM OFFICE ENGINEER: None. ANESTHESIA: IV sedation with local. HEMOSTASIS: Surgical dissection. PATHOLOGY: Bone and soft tissue, right 2nd toe. COMPLICATIONS: None. DESCRIPTION OF PROCEDURE: The patient was brought to the operating room and placed on the operating table in the supine position. Following the induction of IV sedation, local anesthesia was achieved using 10 mL of 2% lidocaine plain. The right foot was scrubbed, prepped, and draped in the usual sterile fashion. Attention was directed to the right 2nd toe where there was a distal tuft diabetic ulcer probing to bone. I began by performing a fishmouth circumferential incision starting at the dorsal aspect of the proximal interphalangeal joint, extending plantar and distal to circumscribe the entirety of the distal tip of the 2nd digit. The incision was deepened using sharp and blunt dissection, taking care to retract vital neural and vascular structures. All bleeders were cauterized and ligated as needed. Next, I disarticulated the 2nd toe at the level of the proximal interphalangeal joint. The distal aspect of the 2nd digit was removed from the operative site and sent to pathology for analysis. Of note, the distal phalanx was noted to be eroded on palpation, as well as some friable changes to the middle phalanx. Once the distal tip of the 2nd toe was removed, I released all soft tissue and ligamentous structures from the head of the proximal phalanx. The head of the proximal phalanx appeared viable. It was resected utilizing the sagittal saw. A portion of the proximal phalanx was sectioned for bone culture. The remainder was sectioned for bone pathology. IV antibiotics intraoperatively were then initiated. The surgical site was then copiously irrigated with sterile saline mixed with Bacitracin. The incision was coapted once the plantar flap was flapped upwards. It was coapted with 3-0 nylon in a simple interrupted suture fashion. Following the conclusion of the procedure, the surgical incision was covered with Xeroform, and a sterile compressive dressing was applied to the right foot consisting of sterile gauze, Kerlix, and an Hu wrap. The patient tolerated the procedure and anesthesia well without complications. The patient was escorted from the operating room to the recovery unit with vital signs stable and neurovasculature intact to the right foot. MADHU ALEJANDRO/[id number]
--- NOTE | 2020-06-01 11:52 | PN ---
Progress Note, Physician History of Present Illness: post op better - Current Medication List Current Medications: Active Medications Atorvastatin Calcium (Lipitor -) 40 mg PO HS [facility] Last Admin: 05/31/20 22:30 Dose: 40 mg Documented by: Gabapentin (Neurontin -) 300 mg PO BID [facility] Last Admin: 06/01/20 10:54 Dose: 300 mg Documented by: Insulin Aspart (Novolog Vial Sliding Scale -) 1 vial SQ ACHS [facility]; Protocol Last Admin: 06/01/20 11:00 Dose: Not Given Documented by: Metoprolol Succinate (Toprol Xl -) 12.5 mg PO DAILY [facility] Last Admin: 06/01/20 10:53 Dose: 12.5 mg Documented by: Oxycodone HCl (Roxicodone -) 5 mg PO Q4H PRN PRN Reason: PAIN LEVEL 1-5 - Objective Vital Signs: Vital Signs Temperature 98.1 F 06/01/20 06:00 Pulse Rate 68 06/01/20 06:00 Respiratory Rate 20 06/01/20 06:00 Blood Pressure 108/76 06/01/20 06:00 O2 Sat by Pulse Oximetry (%) 96 05/31/20 21:00 Constitutional: Yes: No Distress, Calm Cardiovascular: Yes: S1, S2 Respiratory: Yes: Regular, CTA Bilaterally Gastrointestinal: Yes: Normal Bowel Sounds, Soft Musculoskeletal: Yes: WNL Extremities: Yes: Other Integumentary: Yes: Other Wound/Incision: Yes: Dressing Dry and Intact Neurological: Yes: Alert, Oriented Psychiatric: Yes: Alert, Oriented Labs: CBC, BMP 06/01/20 06:50 06/01/20 06:50 Assessment/Plan plan will not start on abx await for cx reports
--- NOTE | 2020-06-01 12:13 | PN ---
Progress Note, Physician History of Present Illness: Pt seen and examined at bedside. He is awake and alert. He denies shortness of breath. - Current Medication List Current Medications: Active Medications Atorvastatin Calcium (Lipitor -) 40 mg PO HS [facility] Last Admin: 05/31/20 22:30 Dose: 40 mg Documented by: Gabapentin (Neurontin -) 300 mg PO BID [facility] Last Admin: 06/01/20 10:54 Dose: 300 mg Documented by: Insulin Aspart (Novolog Vial Sliding Scale -) 1 vial SQ ACHS [facility]; Protocol Last Admin: 06/01/20 11:00 Dose: Not Given Documented by: Metoprolol Succinate (Toprol Xl -) 12.5 mg PO DAILY [facility] Last Admin: 06/01/20 10:53 Dose: 12.5 mg Documented by: Oxycodone HCl (Roxicodone -) 5 mg PO Q4H PRN PRN Reason: PAIN LEVEL 1-5 - Objective Vital Signs: Vital Signs Temperature 98.1 F 06/01/20 06:00 Pulse Rate 68 06/01/20 06:00 Respiratory Rate 20 06/01/20 06:00 Blood Pressure 108/76 06/01/20 06:00 O2 Sat by Pulse Oximetry (%) 96 05/31/20 21:00 Constitutional: Yes: Calm Eyes: Yes: Conjunctiva Clear HENT: Yes: Atraumatic Neck: Yes: Supple Cardiovascular: Yes: S1, S2 Respiratory: Yes: CTA Bilaterally Gastrointestinal: Yes: Normal Bowel Sounds, Soft Genitourinary: Yes: WNL Musculoskeletal: Yes: WNL Edema: No Neurological: Yes: Oriented Psychiatric: Yes: Oriented Labs: CBC, BMP 06/01/20 06:50 06/01/20 06:50 Problem List - Problems (1) HTN (hypertension) Code(s): I10 - ESSENTIAL (PRIMARY) HYPERTENSION (2) Hypercholesterolemia Code(s): E78.00 - PURE HYPERCHOLESTEROLEMIA, UNSPECIFIED (3) Osteomyelitis Code(s): M86.9 - OSTEOMYELITIS, UNSPECIFIED Assessment/Plan Current Medications Generic Name Dose Route Start Last Admin Trade Name Freq PRN Reason Stop Dose Admin Atorvastatin Calcium 40 mg 05/31/20 22:00 05/31/20 22:30 Lipitor - PO 40 mg HS FIDELINA Administration Gabapentin 300 mg 05/31/20 22:00 06/01/20 10:54 Neurontin - PO 300 mg BID FIDELINA Administration Insulin Aspart 1 vial 05/31/20 22:00 06/01/20 11:00 Novolog Vial Sliding Scale - SQ Not Given ACHS [facility] Protocol Metoprolol Succinate 12.5 mg 06/01/20 10:00 06/01/20 10:53 Toprol Xl - PO 12.5 mg DAILY FIDELINA Administration Oxycodone HCl 5 mg 05/31/20 16:27 Roxicodone - PO Q4H PRN PAIN LEVEL 1-5 Laboratory Tests 05/30/20 05/30/20 05/31/20 11:40 19:45 20:10 Protein/Creatinin Ratio 1.2 ANJELICA M-Kyle Pending COVID-19 (ELIAS) Not detected Impression 1. CKD 2. dm 3. htn 4. hld 5. osteo 6. pvd 7. protienuria Plan - renal ultrasound reviewed - low potassium diet - follow spep - repeat labs in am - restart low dose amador or arb once more stable - will need proteinuria workup - check a1c
--- NOTE | 2020-06-01 18:15 | PN ---
Teaching Attending Note Name of Resident: Nani Albright ATTENDING PHYSICIAN STATEMENT I saw and evaluated the patient. I reviewed the resident's note and discussed the case with the resident. I agree with the resident's findings and plan as documented. Subjective: Patient seen and examined at bedside, R partial 2nd toe amputation POD#1, doing well, denies complaints, awaiting C/S. Objective: GA comfortable, NAD HEENT nC/AT, EOMI, no JVD, neck supple, no oral thrush Chest CTAB, no crackles or wheezing CVS S1, S2+, RRR Abd Soft, obese, NT, ND Ext RLE w/ wound dressing, no LE edema moves all 4 ext. Vital Signs - 24 hr 05/31/20 05/31/20 06/01/20 21:00 22:00 02:12 Temperature 98.2 F 97.6 F Pulse Rate 77 66 Respiratory 20 20 Rate Blood Pressure 147/76 116/71 O2 Sat by Pulse 96 Oximetry (%) 06/01/20 06/01/20 06/01/20 06:00 09:00 14:00 Temperature 98.1 F 98.4 F Pulse Rate 68 69 Respiratory 20 20 Rate Blood Pressure 108/76 108/67 O2 Sat by Pulse 96 Oximetry (%) Microbiology 05/31/20 16:09 Wound Gram Stain - Final 05/31/20 16:09 Bone Gram Stain - Final Laboratory Results - last 24 hr 05/31/20 05/31/20 05/31/20 20:10 20:10 20:10 WBC RBC Hgb Hct MCV MCH MCHC RDW Plt Count MPV Absolute Neuts (auto) Neutrophils % Lymphocytes % Monocytes % Eosinophils % Basophils % Nucleated RBC % Sodium Potassium Chloride Carbon Dioxide Anion Gap BUN Creatinine Est GFR (CKD-EPI)AfAm Est GFR (CKD-EPI)NonAf POC Glucometer Random Glucose Calcium Total Bilirubin AST ALT Alkaline Phosphatase Total Protein Albumin Ur Random Creatinine 77.0 U Random Total Protein 94.6 H Ur Random Sodium 50 Ur Random Potassium 54.0 Ur Random Chloride 68 L Urine Creatinine 77.0 Protein/Creatinin Ratio 1.2 05/31/20 06/01/20 06/01/20 22:29 06:29 06:50 WBC 8.3 RBC 3.84 L Hgb 11.2 L Hct 33.5 L MCV 87.2 MCH 29.1 MCHC 33.4 RDW 15.5 Plt Count 223 MPV 8.5 Absolute Neuts (auto) 6.5 Neutrophils % 78.1 D Lymphocytes % 14.6 D Monocytes % 6.9 Eosinophils % 0.3 D Basophils % 0.1 Nucleated RBC % 0 Sodium Potassium Chloride Carbon Dioxide Anion Gap BUN Creatinine Est GFR (CKD-EPI)AfAm Est GFR (CKD-EPI)NonAf POC Glucometer 165 99 Random Glucose Calcium Total Bilirubin AST ALT Alkaline Phosphatase Total Protein Albumin Ur Random Creatinine U Random Total Protein Ur Random Sodium Ur Random Potassium Ur Random Chloride Urine Creatinine Protein/Creatinin Ratio 06/01/20 06/01/20 06/01/20 06:50 11:34 16:52 WBC RBC Hgb Hct MCV MCH MCHC RDW Plt Count MPV Absolute Neuts (auto) Neutrophils % Lymphocytes % Monocytes % Eosinophils % Basophils % Nucleated RBC % Sodium 139 Potassium 4.6 Chloride 109 H Carbon Dioxide 24 Anion Gap 7 L BUN 31.7 H Creatinine 1.5 H Est GFR (CKD-EPI)AfAm 59.88 Est GFR (CKD-EPI)NonAf 51.67 POC Glucometer 130 121 Random Glucose 107 H Calcium 8.4 L Total Bilirubin 0.3 AST 13 L ALT 19 Alkaline Phosphatase 77 Total Protein 6.9 Albumin 3.3 L Ur Random Creatinine U Random Total Protein Ur Random Sodium Ur Random Potassium Ur Random Chloride Urine Creatinine Protein/Creatinin Ratio Home Medications Medication Instructions Recorded Atorvastatin Ca [Lipitor] 20 mg PO HS 10/13/19 Cinnamon Bark [Cinnamon] 1 tab PO DAILY 10/13/19 Clopidogrel Bisulfate [Plavix] 75 mg PO DAILY 10/13/19 Empagliflozin [Jardiance] 10 mg PO DAILY 10/13/19 Gabapentin 300 mg PO BID 10/13/19 Lisinopril 10 mg PO DAILY 10/13/19 Metformin HCl [Glucophage] 1,000 mg PO BID 10/13/19 Metoprolol Succinate 1 tab PO DAILY 10/13/19 Rivaroxaban [Xarelto] 2.5 mg PO BID 10/13/19 Sitagliptin Phosphate [Januvia] 100 mg PO DAILY 10/13/19 Vitamin D - 1 tab PO DAILY 10/13/19 Current Medications Generic Name Dose Route Start Last Admin Trade Name Freq PRN Reason Stop Dose Admin Atorvastatin Calcium 40 mg 05/31/20 22:00 05/31/20 22:30 Lipitor - PO 40 mg HS FIDELINA Administration Gabapentin 300 mg 05/31/20 22:00 06/01/20 10:54 Neurontin - PO 300 mg BID FIDELINA Administration Insulin Aspart 1 vial 05/31/20 22:00 06/01/20 17:24 Novolog Vial Sliding Scale - SQ Not Given ACHS FIDELINA Protocol Metoprolol Succinate 12.5 mg 06/01/20 10:00 06/01/20 10:53 Toprol Xl - PO 12.5 mg DAILY FIDELINA Administration Oxycodone HCl 5 mg 05/31/20 16:27 Roxicodone - PO Q4H PRN PAIN LEVEL 1-5 ASSESSMENT AND PLAN: 54 M R 2nd toe OM s/p R big toe amputation ROLAND/CKD w/ nephrotic range proteinuria HTN HLD T2DM PVD s/p stents Plan: Follow renal workup, SPEP pending, restart Lisinopril at 5mg daily w/ monitoring of chem and low K diet Cont. statin, Restart Xarelto/Plavix if OK by Podiatry Renal following ID following Vascular following Podiatry following Cardiology following ISS, basal insulin PRN for glucose management Follow post-op recs
--- NOTE | 2020-06-01 18:20 | PN ---
Physical Exam: SUBJECTIVE: Patient seen and examined at bedside this morning. No acute events. Patient reports feeling well and has no complaints. OBJECTIVE: Vital Signs Temperature 98.4 F 06/01/20 14:00 Pulse Rate 69 06/01/20 14:00 Respiratory Rate 06/01/20 14:00 Blood Pressure 108/67 06/01/20 14:00 O2 Sat by Pulse Oximetry (%) 96 06/01/20 09:00 GENERAL: The patient is awake, alert, and fully oriented, in no acute distress. HEAD: Normal with no signs of trauma. EYES:PERRLA, EOMI, sclera anicteric, conjunctiva clear. ENT: moist mucous membranes. NECK: Trachea midline, full range of motion, supple. LUNGS: Breath sounds equal, clear to auscultation bilaterally HEART: Regular rate and rhythm, S1, S2 ABDOMEN: Soft, nontender, nondistended, normoactive bowel sounds EXTREMITIES: 2+ pulses, warm, well-perfused, no edema. NEUROLOGICAL: Cranial nerves II through XII grossly intact. Normal speech PSYCH: Normal mood, normal affect. SKIN: Warm, dry, normal turgor Laboratory Results - last 24 hr 05/31/20 05/31/20 05/31/20 20:10 20:10 20:10 WBC RBC Hgb Hct MCV MCH MCHC RDW Plt Count MPV Absolute Neuts (auto) Neutrophils % Lymphocytes % Monocytes % Eosinophils % Basophils % Nucleated RBC % Sodium Potassium Chloride Carbon Dioxide Anion Gap BUN Creatinine Est GFR (CKD-EPI)AfAm Est GFR (CKD-EPI)NonAf POC Glucometer Random Glucose Calcium Total Bilirubin AST ALT Alkaline Phosphatase Total Protein Albumin Ur Random Creatinine 77.0 U Random Total Protein 94.6 H Ur Random Sodium 50 Ur Random Potassium 54.0 Ur Random Chloride 68 L Urine Creatinine 77.0 Protein/Creatinin Ratio 1.2 05/31/20 06/01/20 06/01/20 22:29 06:29 06:50 WBC 8.3 RBC 3.84 L Hgb 11.2 L Hct 33.5 L MCV 87.2 MCH 29.1 MCHC 33.4 RDW 15.5 Plt Count 223 MPV 8.5 Absolute Neuts (auto) 6.5 Neutrophils % 78.1 D Lymphocytes % 14.6 D Monocytes % 6.9 Eosinophils % 0.3 D Basophils % 0.1 Nucleated RBC % 0 Sodium Potassium Chloride Carbon Dioxide Anion Gap BUN Creatinine Est GFR (CKD-EPI)AfAm Est GFR (CKD-EPI)NonAf POC Glucometer 165 99 Random Glucose Calcium Total Bilirubin AST ALT Alkaline Phosphatase Total Protein Albumin Ur Random Creatinine U Random Total Protein Ur Random Sodium Ur Random Potassium Ur Random Chloride Urine Creatinine Protein/Creatinin Ratio 06/01/20 06/01/20 06/01/20 06:50 11:34 16:52 WBC RBC Hgb Hct MCV MCH MCHC RDW Plt Count MPV Absolute Neuts (auto) Neutrophils % Lymphocytes % Monocytes % Eosinophils % Basophils % Nucleated RBC % Sodium 139 Potassium 4.6 Chloride 109 H Carbon Dioxide 24 Anion Gap 7 L BUN 31.7 H Creatinine 1.5 H Est GFR (CKD-EPI)AfAm 59.88 Est GFR (CKD-EPI)NonAf 51.67 POC Glucometer 130 121 Random Glucose 107 H Calcium 8.4 L Total Bilirubin 0.3 AST 13 L ALT 19 Alkaline Phosphatase 77 Total Protein 6.9 Albumin 3.3 L Ur Random Creatinine U Random Total Protein Ur Random Sodium Ur Random Potassium Ur Random Chloride Urine Creatinine Protein/Creatinin Ratio Active Medications Generic Name Dose Route Start Last Admin Trade Name Freq PRN Reason Stop Dose Admin Atorvastatin Calcium 40 mg 05/31/20 22:00 05/31/20 22:30 Lipitor - PO 40 mg HS FIDELINA Administration Gabapentin 300 mg 05/31/20 22:00 06/01/20 10:54 Neurontin - PO 300 mg BID FIDELINA Administration Insulin Aspart 1 vial 05/31/20 22:00 06/01/20 17:24 Novolog Vial Sliding Scale - SQ Not Given ACHS COUNT INCLUDES THE [facility] Protocol Metoprolol Succinate 12.5 mg 06/01/20 10:00 06/01/20 10:53 Toprol Xl - PO 12.5 mg DAILY FIDELINA Administration Oxycodone HCl 5 mg 05/31/20 16:27 Roxicodone - PO Q4H PRN PAIN LEVEL 1-5 ASSESSMENT/PLAN: Patient is a 54 year old M with pmhx of HTN, HLD, T2DM, PVD s/p stents, s/p R big toe amputation, charcot joints, now presents w/ suspected OM of R 2nd toe. #R 2nd toe OM -s/p Right 2nd digit partial amputation POD 1 -follow up operative cultures -Hold off antibiotics as per ID -Dry sterile dressing applied to right foot -Partial WB R heel with surgical shoe -Podiatry (Dr. Hawkins) consulted. Recommendations appreciated. -ID (Dr. Wu) consulted. REcommendations appreciated. #CKD, proteinuria -renal ultrasound no acute pathology -low potassium diet -follow spep -repeat labs in am -restart low dose amador or arb once more stable -will need proteinuria workup -check a1c -Nephrology (Dr. Peters) consulted. REcommendations appreciated. #HTN -continue Metoprolol Succinate 12.5mg daily -hold Lisinopril for now #HLD -continue Lipitor 40mg HS #T2DM -Hold home januvia and jardiance and metformin -ISS implemented -BGM ACHS #PVD s/p stents -continue statin -will restart AC/antiplatelet in am if cleared #FEN -Diabetic diet, low potassium diet -Electrolytes wnl, routine bmp monitoring -Not on any standing fluids #Prophylaxis -Hold Xarelto for now, dose would need to be reconciled with pharmacy (2.5mg bid?) -restart tomorrow if cleared by surgery #Disposition -full code -med surg Visit type - Emergency Visit Emergency Visit: Yes ED Registration Date: 05/30/20 Care time: The patient presented to the Emergency Department on the above date and was hospitalized for further evaluation of their emergent condition. - New Patient This patient is new to me today: Yes Date on this admission: 06/01/20 - Critical Care Critical Care patient: No ATTENDING PHYSICIAN STATEMENT I saw and evaluated the patient. I reviewed the resident's note and discussed the case with the resident. I agree with the resident's findings and plan as documented. SUBJECTIVE: OBJECTIVE: ASSESSMENT AND PLAN:
[2020-06-01] MEDS: ATORVASTATIN CA 40 MG TABLET (FP) PO SCH (22:16)
[2020-06-02] MEDS: INSULIN SLIDING SCALE (NOVOLOG) 1 VIAL SQ SCH ×3 (06:03→16:35)
[2020-06-02 07:45] LABS: ALBUMIN 3.2 g/dl (3.4-5.0); BLOOD UREA NITROGEN 30.5 mg/dL (7-18); CALCIUM 8.3 mg/dL (8.5-10.1); MAGNESIUM 2.3 mg/dL (1.8-2.4); POTASSIUM 4.2 mmol/L (3.5-5.1)
[2020-06-02 07:48] LABS: BILIRUBIN,TOTAL 0.3 mg/dL (0.2-1); CREATININE 1.4 mg/dL (0.55-1.3); PHOSPHOROUS 4.1 mg/dL (2.5-4.9); TOT PROT 6.6 g/dl (6.4-8.2)
[2020-06-02] MEDS: GABAPENTIN 300 MG CAPSULE PO SCH (09:03)
[2020-06-02] MEDS: metoPROLOL SUCCINATE 25 MG TAB.SR.24H (FP) PO SCH (09:03)
--- NOTE | 2020-06-02 10:19 | PN ---
Progress Note, Physician History of Present Illness: POD#2 right second digit partial amputation, no complaints. - Current Medication List Current Medications: Active Medications Atorvastatin Calcium (Lipitor -) 40 mg PO HS [facility] Last Admin: 06/01/20 22:16 Dose: 40 mg Documented by: Gabapentin (Neurontin -) 300 mg PO BID [facility] Last Admin: 06/02/20 09:03 Dose: 300 mg Documented by: Insulin Aspart (Novolog Vial Sliding Scale -) 1 vial SQ ACHS [facility]; Protocol Last Admin: 06/02/20 06:03 Dose: Not Given Documented by: Metoprolol Succinate (Toprol Xl -) 12.5 mg PO DAILY [facility] Last Admin: 06/02/20 09:03 Dose: 12.5 mg Documented by: Oxycodone HCl (Roxicodone -) 5 mg PO Q4H PRN PRN Reason: PAIN LEVEL 1-5 - Objective Vital Signs: Vital Signs Temperature 98.4 F 06/02/20 08:15 Pulse Rate 72 06/02/20 08:15 Respiratory Rate 20 06/02/20 08:15 Blood Pressure 100/67 06/02/20 08:15 O2 Sat by Pulse Oximetry (%) 95 06/01/20 21:00 Constitutional: Yes: No Distress, Calm Neck: Yes: Supple Cardiovascular: Yes: Regular Rate and Rhythm Respiratory: Yes: Regular, Diminished Gastrointestinal: Yes: Normal Bowel Sounds, Soft Edema: No Labs: CBC, BMP 06/01/20 06:50 06/02/20 06:13 Problem List - Problems (1) PAD (peripheral artery disease) Code(s): I73.9 - PERIPHERAL VASCULAR DISEASE, UNSPECIFIED (2) CKD (chronic kidney disease) Code(s): N18.9 - CHRONIC KIDNEY DISEASE, UNSPECIFIED Qualifiers: Chronic kidney disease stage: stage 2 (mild) Qualified Code(s): N18.2 - Chronic kidney disease, stage 2 (mild) Assessment/Plan Problem List - Problems (1) HTN (hypertension) Code(s): I10 - ESSENTIAL (PRIMARY) HYPERTENSION (2) Hypercholesterolemia Code(s): E78.00 - PURE HYPERCHOLESTEROLEMIA, UNSPECIFIED (3) Type 2 diabetes mellitus Code(s): E11.9 - TYPE 2 DIABETES MELLITUS WITHOUT COMPLICATIONS (4) Osteomyelitis Code(s): M86.9 - OSTEOMYELITIS, UNSPECIFIED Assessment/Plan 1. PAD s/p stent POD#2 for right second digit partial amputation for osteomyelitis 2. HTN 3. Hypercholesterolemia 4. DM 5. CKD with proteinuria PLAN: 1. Continue Metoprolol ER 12.5 mg QD and Atorvastatin 20 mg QHS 2. Lisinopril held for now until renal function improves 3. Resume Xarelto 2.5 mg BID (given for cardiovascular risk reduction in view of PAD) and Clopidogrel 75 qd once hemostasis is achieved
--- NOTE | 2020-06-02 11:13 | PN ---
Progress Note (short form) - Note Progress Note: Podiatry F/U: Seen/evaluated at bedside NAD. s/p righ 2nd digit POD #2, doing well. nervous RVEA: R foot: surgical dressing clean, dry, intact. There is no active bleeding, no bandage strikethrough. Sutures well coapted, no dehiscence noted. There is no purulent drainage, no fluctuance, no streaking ascending cellulitis, no signs of active infection. Minimal tenderness to palpation. No ischemic changes or duskiness to the surgical site. OR Cx: pending Imp: 54 year old diabetic male s/p right second digit partial amputation for osteomyelitis POD#1 Evaluated and reviewed follow cultures leave dressing c/d/i has f/u with Dr. Hawkins next saturday on the wound care center stable for d/c once cultures are final and ID clears. will follow up as outpatient
[2020-06-02] MEDS ORDERED: INSULIN (NOVOLOG) ASPART 100 UNITS/ML 10ML VIAL ONE ×2 (11:24→19:16)
--- NOTE | 2020-06-02 11:47 | PN ---
Progress Note, Physician History of Present Illness: stable no new issues cx results noted - Current Medication List Current Medications: Active Medications Atorvastatin Calcium (Lipitor -) 40 mg PO HS [facility] Last Admin: 06/01/20 22:16 Dose: 40 mg Documented by: Gabapentin (Neurontin -) 300 mg PO BID [facility] Last Admin: 06/02/20 09:03 Dose: 300 mg Documented by: Insulin Aspart (Novolog Vial Sliding Scale -) 1 vial SQ ACHS [facility]; Protocol Last Admin: 06/02/20 11:31 Dose: Not Given Documented by: Metoprolol Succinate (Toprol Xl -) 12.5 mg PO DAILY [facility] Last Admin: 06/02/20 09:03 Dose: 12.5 mg Documented by: Oxycodone HCl (Roxicodone -) 5 mg PO Q4H PRN PRN Reason: PAIN LEVEL 1-5 - Objective Vital Signs: Vital Signs Temperature 98.4 F 06/02/20 08:15 Pulse Rate 72 06/02/20 08:15 Respiratory Rate 20 06/02/20 08:15 Blood Pressure 100/67 06/02/20 08:15 O2 Sat by Pulse Oximetry (%) 95 06/01/20 21:00 Constitutional: Yes: No Distress, Calm Cardiovascular: Yes: S1, S2 Respiratory: Yes: Regular, CTA Bilaterally Gastrointestinal: Yes: Normal Bowel Sounds, Soft Musculoskeletal: Yes: WNL Extremities: Yes: Other Wound/Incision: Yes: Dressing Dry and Intact Neurological: Yes: Alert, Oriented Psychiatric: Yes: Alert, Oriented Labs: CBC, BMP 06/01/20 06:50 06/02/20 06:13 Assessment/Plan plan cx results noted osteo dm pvd wound infection plan no abx wound care
[2020-06-02 14:12] VITALS: BP 135/78; PULSE 77; TEMP 98.8
--- NOTE | 2020-06-02 14:49 | PN ---
Teaching Attending Note Name of Resident: Nani Albright ATTENDING PHYSICIAN STATEMENT I saw and evaluated the patient. I reviewed the resident's note and discussed the case with the resident. I agree with the resident's findings and plan as documented. Subjective: Patient seen and examined at bedside, R partial 2nd toe amputation POD#2, doing well, ambulating around unit, cultures negative, ID clearing for DC w/o abx and Podiatry follow up. Will DC today. Objective: GA comfortable, NAD, ambulating around unit HEENT nC/AT, EOMI, no JVD, neck supple, no oral thrush Chest CTAB, no crackles or wheezing CVS S1, S2+, RRR Abd Soft, obese, NT, ND Ext RLE w/ wound dressing, no LE edema moves all 4 ext. Vital Signs - 24 hr 06/01/20 06/02/20 06/02/20 21:00 06:00 08:15 Temperature 98.6 F 98.4 F 98.4 F Pulse Rate 67 63 72 Respiratory 20 20 20 Rate Blood Pressure 137/71 112/62 100/67 O2 Sat by Pulse 95 Oximetry (%) 06/02/20 14:00 Temperature 98.8 F Pulse Rate 77 Respiratory 20 Rate Blood Pressure 135/78 O2 Sat by Pulse Oximetry (%) Microbiology 05/31/20 16:09 Bone Gram Stain - Final 05/31/20 16:09 Bone Tissue Culture - Preliminary NO AEROBIC GROWTH, 24 HRS 05/31/20 16:09 Wound Gram Stain - Final 05/31/20 16:09 Wound Wound Culture - Preliminary NO GROWTH OBTAINED AFTER 24 HOURS INCUBATION, REINCUBATED. Laboratory Results - last 24 hr 06/01/20 06/01/20 06/02/20 16:52 22:15 05:56 Sodium Potassium Chloride Carbon Dioxide Anion Gap BUN Creatinine Est GFR (CKD-EPI)AfAm Est GFR (CKD-EPI)NonAf POC Glucometer 121 134 109 Random Glucose Hemoglobin A1c % Calcium Phosphorus Magnesium Total Bilirubin AST ALT Alkaline Phosphatase Total Protein Albumin 06/02/20 06/02/20 06/02/20 06:13 06:13 11:29 Sodium 138 Potassium 4.2 Chloride 108 H Carbon Dioxide 24 Anion Gap 7 L BUN 30.5 H Creatinine 1.4 H Est GFR (CKD-EPI)AfAm 65.09 Est GFR (CKD-EPI)NonAf 56.16 POC Glucometer 119 Random Glucose 111 H Hemoglobin A1c % 6.0 Calcium 8.3 L Phosphorus 4.1 Magnesium 2.3 Total Bilirubin 0.3 AST 12 L ALT 18 Alkaline Phosphatase 76 Total Protein 6.6 Albumin 3.2 L Home Medications Medication Instructions Recorded Atorvastatin Ca [Lipitor] 20 mg PO HS 10/13/19 Cinnamon Bark [Cinnamon] 1 tab PO DAILY 10/13/19 Clopidogrel Bisulfate [Plavix] 75 mg PO DAILY 10/13/19 Empagliflozin [Jardiance] 10 mg PO DAILY 10/13/19 Gabapentin 300 mg PO BID 10/13/19 Lisinopril 10 mg PO DAILY 10/13/19 Metformin HCl [Glucophage] 1,000 mg PO BID 10/13/19 Metoprolol Succinate 1 tab PO DAILY 10/13/19 Rivaroxaban [Xarelto] 2.5 mg PO BID 10/13/19 Sitagliptin Phosphate [Januvia] 100 mg PO DAILY 10/13/19 Vitamin D - 1 tab PO DAILY 10/13/19 Current Medications Generic Name Dose Route Start Last Admin Trade Name Freq PRN Reason Stop Dose Admin Atorvastatin Calcium 40 mg 05/31/20 22:00 06/01/20 22:16 Lipitor - PO 40 mg HS FIDELINA Administration Gabapentin 300 mg 05/31/20 22:00 06/02/20 09:03 Neurontin - PO 300 mg BID FIDELINA Administration Insulin Aspart 1 vial 05/31/20 22:00 06/02/20 11:31 Novolog Vial Sliding Scale - SQ Not Given ACHS FIDELINA Protocol Metoprolol Succinate 12.5 mg 06/01/20 10:00 06/02/20 09:03 Toprol Xl - PO 12.5 mg DAILY FIDELINA Administration Oxycodone HCl 5 mg 05/31/20 16:27 Roxicodone - PO Q4H PRN PAIN LEVEL 1-5 ASSESSMENT AND PLAN: 54 M R 2nd toe OM s/p partial amputation POD #2 s/p R big toe amputation ROLAND/CKD w/ nephrotic range proteinuria HTN HLD T2DM PVD s/p stents Plan: Cont. statin, Restart Xarelto/Plavix per Cardio recs, counseled on low K diet, restart CARI at lowest dose ID cleared for DC without abx, cultures neg., Gram stain negative. Follow post-op recs, follow up in podiatry clinic and PCP in 1 week DC home
--- NOTE | 2020-06-02 15:41 | DS ---
Physical Exam: SUBJECTIVE: Patient seen and examined OBJECTIVE: Vital Signs Temperature 98.8 F 06/02/20 14:00 Pulse Rate 77 06/02/20 14:00 Respiratory Rate 20 06/02/20 14:00 Blood Pressure 135/78 06/02/20 14:00 O2 Sat by Pulse Oximetry (%) 95 06/01/20 21:00 PHYSICAL EXAM GENERAL: The patient is awake, alert, and fully oriented, in no acute distress. HEAD: Normal with no signs of trauma. EYES:PERRLA, EOMI, sclera anicteric, conjunctiva clear. ENT: moist mucous membranes. NECK: Trachea midline, full range of motion, supple. LUNGS: Breath sounds equal, clear to auscultation bilaterally HEART: Regular rate and rhythm, S1, S2 ABDOMEN: Soft, nontender, nondistended, normoactive bowel sounds EXTREMITIES: 2+ pulses, warm, well-perfused, no edema. NEUROLOGICAL: Cranial nerves II through XII grossly intact. Normal speech PSYCH: Normal mood, normal affect. SKIN: Warm, dry, normal turgor LABS Laboratory Results - last 24 hr 06/01/20 06/01/20 06/02/20 16:52 22:15 05:56 Sodium Potassium Chloride Carbon Dioxide Anion Gap BUN Creatinine Est GFR (CKD-EPI)AfAm Est GFR (CKD-EPI)NonAf POC Glucometer 121 134 109 Random Glucose Hemoglobin A1c % Calcium Phosphorus Magnesium Total Bilirubin AST ALT Alkaline Phosphatase Total Protein Albumin 06/02/20 06/02/20 06/02/20 06:13 06:13 11:29 Sodium 138 Potassium 4.2 Chloride 108 H Carbon Dioxide 24 Anion Gap 7 L BUN 30.5 H Creatinine 1.4 H Est GFR (CKD-EPI)AfAm 65.09 Est GFR (CKD-EPI)NonAf 56.16 POC Glucometer 119 Random Glucose 111 H Hemoglobin A1c % 6.0 Calcium 8.3 L Phosphorus 4.1 Magnesium 2.3 Total Bilirubin 0.3 AST 12 L ALT 18 Alkaline Phosphatase 76 Total Protein 6.6 Albumin 3.2 L HOSPITAL COURSE: Date of Admission:05/30/20 Date of Discharge: 06/02/20 Patient is a 54 year old M with pmhx of HTN, HLD, T2DM, PVD s/p stents, s/p R bi g toe amputation, charcot joints, now presents w/ suspected OM of R 2nd toe. #R 2nd toe OM -s/p Right 2nd digit partial amputation -Wound and bone cultures done -Hold off antibiotics as per ID -Dry sterile dressing applied to right foot -Partial WB R heel with surgical shoe -Podiatry (Dr. Hawkins) consulted. Recommendations appreciated. -ID (Dr. Wu) consulted. REcommendations appreciated. -To follow up at the wound care clinic on 06/06 #CKD, proteinuria -renal ultrasound no acute pathology -low potassium diet -spep -Low dose Lisinopril restarted -proteinuria workup to follow up with Dr. Peters in clinic Minutes to complete discharge: 39 Discharge Summary Problems reviewed: Yes Reason For Visit: DIABETES MELLITUS,INFECTION OF TOE,OSTEOMYELITIS Current Active Problems CKD (chronic kidney disease) (Acute) HTN (hypertension) (Acute) Hypercholesterolemia (Acute) Osteomyelitis (Acute) PAD (peripheral artery disease) (Acute) Preoperative clearance (Acute) Toe infection (Acute) Type 2 diabetes mellitus (Acute) Condition: Stable - Instructions Diet, Activity, Other Instructions: Your visit You were admitted to the hospital because you had an infection of your toe. You were evaluated by surgery, and you had a procedure done to take out the infection. The cultures were clean and infectious disease doctor recommended that you do not need antibiotics at this time. Do not take off the dressing, keep the dressing clean, dry and intact until your follow up at the wound care clinic. Please follow up with the surgeon, Dr. Hawkins. You are scheduled next Saturday. You were also noted to have abnormal renal function. This was likely because you were dehydrated. We held the Lisinopril and Metformin and gave you IV fluids.Your kidney function improved. Please follow up with the kidney doctor (Dr. Peters). Please call his office to schedule an appointment. A referral has been provided. Medications Please take note of the following changes to your medications: 1. Decreased Lisinopril dose to 5mg daily starting tomorrow (06/03/2020) 2. STOP taking Metformin until you see your primary care doctor Please continue your home medications. Follow up Please follow up with your primary care doctor in 1-2 weeks. Please follow up with the roof bolting coal miner (Dr. Hawkins). You are scheduled for next Saturday, June 07, at the wound care center. Please call to confirm the time of your appointment. Please follow up with the seasonal recruiter (Dr. Peters) in 1-2 weeks. Additional info Please call 911 or go to the ED if with any worsening fevers, chills, headache, dizziness, chest pain, Shortness of breath, belly pain, diarrhea, or any new concerns noted. Referrals: Eliot Hawkins MD [Staff Physician] - ON STAFF,NOT [Primary Care Provider] - Freddie Peters MD [Staff Physician] - Disposition: HOME - Home Medications Comprehensive Discharge Medication List: Ambulatory Orders Atorvastatin Ca [Lipitor] 20 mg PO HS 10/13/19 Cinnamon Bark [Cinnamon] 1 tab PO DAILY 10/13/19 Clopidogrel Bisulfate [Plavix] 75 mg PO DAILY 10/13/19 Empagliflozin [Jardiance] 10 mg PO DAILY 10/13/19 Metoprolol Succinate 1 tab PO DAILY 10/13/19 Rivaroxaban [Xarelto] 2.5 mg PO BID 10/13/19 Sitagliptin Phosphate [Januvia] 100 mg PO DAILY 10/13/19 Vitamin D - 1 tab PO DAILY 10/13/19 Gabapentin [Neurontin -] 300 mg PO BID capsule 06/02/20 This patient is new to me today: No Emergency Visit: Yes ED Registration Date: 05/30/20 Care time: The patient presented to the Emergency Department on the above date and was hospitalized for further evaluation of their emergent condition. Critical Care patient: No - Discharge Referral Referred to [facility] Med P.C.: No ATTENDING PHYSICIAN STATEMENT I saw and evaluated the patient. I reviewed the resident's note and discussed the case with the resident. I agree with the resident's findings and plan as documented. SUBJECTIVE: OBJECTIVE: ASSESSMENT AND PLAN:
--- NOTE | 2020-06-02 17:06 | PN ---
Progress Note, Physician History of Present Illness: Pt seen and examined at bedside. He is awake and alert. He denies shortness of breath. He denies dysuria or hematuria. - Current Medication List Current Medications: Active Medications Atorvastatin Calcium (Lipitor -) 40 mg PO HS [facility] Last Admin: 06/01/20 22:16 Dose: 40 mg Documented by: Gabapentin (Neurontin -) 300 mg PO BID [facility] Last Admin: 06/02/20 09:03 Dose: 300 mg Documented by: Insulin Aspart (Novolog Vial Sliding Scale -) 1 vial SQ ACHS [facility]; Protocol Last Admin: 06/02/20 16:35 Dose: Not Given Documented by: Metoprolol Succinate (Toprol Xl -) 12.5 mg PO DAILY [facility] Last Admin: 06/02/20 09:03 Dose: 12.5 mg Documented by: Oxycodone HCl (Roxicodone -) 5 mg PO Q4H PRN PRN Reason: PAIN LEVEL 1-5 - Objective Vital Signs: Vital Signs Temperature 98.8 F 06/02/20 14:00 Pulse Rate 77 06/02/20 14:00 Respiratory Rate 20 06/02/20 14:00 Blood Pressure 135/78 06/02/20 14:00 O2 Sat by Pulse Oximetry (%) 95 06/01/20 21:00 Constitutional: Yes: Calm Eyes: Yes: Conjunctiva Clear HENT: Yes: Atraumatic Neck: Yes: Supple Cardiovascular: Yes: S1, S2 Respiratory: Yes: CTA Bilaterally Gastrointestinal: Yes: Normal Bowel Sounds, Soft Genitourinary: Yes: WNL Musculoskeletal: Yes: WNL Edema: No Neurological: Yes: Oriented Psychiatric: Yes: Oriented Labs: CBC, BMP 06/01/20 06:50 06/02/20 06:13 Problem List - Problems (1) HTN (hypertension) Code(s): I10 - ESSENTIAL (PRIMARY) HYPERTENSION (2) Hypercholesterolemia Code(s): E78.00 - PURE HYPERCHOLESTEROLEMIA, UNSPECIFIED (3) Osteomyelitis Code(s): M86.9 - OSTEOMYELITIS, UNSPECIFIED Assessment/Plan Current Medications Generic Name Dose Route Start Last Admin Trade Name Freq PRN Reason Stop Dose Admin Atorvastatin Calcium 40 mg 05/31/20 22:00 06/01/20 22:16 Lipitor - PO 40 mg HS [facility] Administration Gabapentin 300 mg 05/31/20 22:00 06/02/20 09:03 Neurontin - PO 300 mg BID FIDELINA Administration Insulin Aspart 1 vial 05/31/20 22:00 06/02/20 16:35 Novolog Vial Sliding Scale - SQ Not Given ACHS [facility] Protocol Metoprolol Succinate 12.5 mg 06/01/20 10:00 06/02/20 09:03 Toprol Xl - PO 12.5 mg DAILY FIDELINA Administration Oxycodone HCl 5 mg 05/31/20 16:27 Roxicodone - PO Q4H PRN PAIN LEVEL 1-5 Laboratory Tests 05/30/20 06/02/20 19:45 06:13 Hemoglobin A1c % 6.0 ANJELICA M-Kyle Pending Impression 1. CKD 2. dm 3. htn 4. hld 5. osteo 6. pvd 7. 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
[2020-06-03] MEDS ORDERED: LISINOPRIL 5 MG TABLET (FP) PO SCH (10:00)
[2020-06-03 18:07] LABS: TOTAL PROTEIN, URINE 93.8 mg/dL (Not Estab.)
--- NOTE | 2020-06-04 13:00 | PATH ---
Surgical Pathology Report Patient Name: MARCELINO STEPHENS Med. Rec. #: [id number] /Age/Gender: 1965 (Age: 54) / M Account: [id number] Location: [facility] MED/SURG Taken: 05/31/2020 Received: 06/01/2020 Reported: 06/04/2020 Physicians: MADHU Hunt Specimen(s) Received A: PROXIMAL BONE RIGHT SECOND TOE B: RIGHT SECOND TOE Clinical History Osteomyelitis right second toe Final Diagnosis A. RIGHT PROXIMAL BONE SECOND TOE, RESECTION: PORTION OF BONE WITH FATTY MARROW, NEGATIVE FOR OSTEOMYELITIS. B. RIGHT SECOND TOE, AMPUTATION: AMPUTATED TOE SHOWING ULCERATION WITH SEVERE ACUTE INFLAMMATION, ABSCESS FORMATION. BONE WITH FOCAL ACUTE OSTEOMYELITIS AND REACTIVE CHANGE. BONE MARGIN IS NEGATIVE FOR OSTEOMYELITIS. VIABLE SKIN AND SOFT TISSUE MARGIN. Electronically Signed Chucky Rouse M.D. Gross Description A. Received in formalin labeled "right proximal bone second toe," is a 1.2 x 0.6 x 0.6 cm tenorio-yellow portion of bone. The specimen is bisected and entirely submitted in one cassette. B. Received in formalin labeled "right second toe," is a 2.5 x 2.2 x 2.2 cm toe amputation. The epidermal surface displays a 1.5 x 1.4 cm ulcerated lesion at the distal end of the toe. No definitive involvement of the underlying bone is identified grossly. Plastic Die Maker Apprentice sections are submitted in 3 cassettes as follows: 1-lesion with underlying bone, following decalcification; 2-bone margin, following decalcification; 3-skin and soft tissue margin. /06/01/2020 [facility]06/01/2020
== END 2020-06-02 17:52 | disposition home or self-care (01) | DRG 504 ==
LOC: JER 11:17 → JERBED 13:01 → J8W 18:03
PROC: 0Y6R0Z1 Detachment at Right 2nd Toe, High, Open Approach (ICD-10-PCS; principal; 2020-05-31 16:00)
DX: M86.8X7 Other osteomyelitis, ankle and foot (principal); L97.516 Non-pressure chronic ulcer of other part of right foot with bone involvement without evidence of necrosis; N17.9 Acute kidney failure, unspecified; E11.621 Type 2 diabetes mellitus with foot ulcer; E11.65 Type 2 diabetes mellitus with hyperglycemia; E11.22 Type 2 diabetes mellitus with diabetic chronic kidney disease; R80.9 Proteinuria, unspecified; I12.9 Hypertensive chronic kidney disease with stage 1 through stage 4 chronic kidney disease, or unspecified chronic kidney disease; I73.9 Peripheral vascular disease, unspecified; N18.2 Chronic kidney disease, stage 2 (mild); B95.8 Unspecified staphylococcus as the cause of diseases classified elsewhere; E78.00 Pure hypercholesterolemia, unspecified; E78.5 Hyperlipidemia, unspecified; Z95.5 Presence of coronary angioplasty implant and graft; Z87.891 Personal history of nicotine dependence
CPT/HCPCS: 36415; 71045-TC-FY; 73630-TC-RT-FY; 76775-TC; 80048; 80053; 81003; 82436; 82550; 82565; 82570; 82962; 83036; 83605; 83690; 83735; 84100; 84133; 84155; 84156; 84157; 84165; 84300; 84484; 85025; 85651; 86140; 86850; 86900; 86901; 87070; 87075; 87205; 88305-TC; 88311-TC; 93005; 93010; 99285-25; U0003

== ENCOUNTER 2020-07-17 22:54 | Inpatient (IN) | payer BC, OTHER ==
[2020-07-17 23:51] VITALS: BMI 34.7
--- NOTE | 2020-07-18 00:04 | PDOC ---
Attending Attestation - Resident Resident Name: BrandinSav - ED Attending Attestation I have performed the following: I have examined & evaluated the patient, The case was reviewed & discussed with the resident, I agree w/resident's findings & plan - HPI HPI: 07/18/20 00:03 see resident hpi - Physicial Exam PE: 07/18/20 00:04 see resident exam - Medical Decision Making 07/18/20 00:34 54-year-old male with foul-smelling right foot wound status post partial amputation Exam reveals swollen moist foul-smelling right foot wound, Patient is otherwise well-appearing, will proceed with evaluation for sepsis/gangrene Plan for sepsis labs, CT scan of the lower extremity to assess for gas Cefepime and vancomycin for MRSA and pseudomonal coverage Pending results will plan for admission to medical service with podiatry consult Discharge - Discharge Information Problems reviewed: Yes Clinical Impression/Diagnosis: Diabetic foot infection - Follow up/Referral - Patient Discharge Instructions - Post Discharge Activity
[2020-07-18] MEDS ORDERED: VANCOMYCIN 1 GM in D5W (PRE-DOCKED) 1,000 MG/250 ML IVPB ONE (00:38)
[2020-07-18] MEDS ORDERED: CEFEPIME HCL/D5W 1 GM/50 ML BAG IVPB ONE (00:38)
--- NOTE | 2020-07-18 00:46 | PDOC ---
History of Present Illness - General Chief Complaint: Wound Stated Complaint: WOUND R FOOT Time Seen by Provider: 07/18/20 00:01 History Source: Patient - History of Present Illness Initial Comments: 07/18/20 00:43 54M PMH HTN, HLD, DM, PAD presenting with 2 days of purulence, wound, and foul smell of right 2nd toe. Pt has daily hyperbarics and wound care. No f/c, no n/v, cp/sob. NKDA. at bedside assisted with history as she takes care of pt wounds at home; repeatedly expressed frustration at the situation. Past History - Medical History Allergies/Adverse Reactions: Allergies Allergy/AdvReac Type Severity Reaction Status Date / Time No Known Allergies Allergy Verified 06/21/20 13:06 Home Medications: Ambulatory Orders Atorvastatin Ca [Lipitor] 20 mg PO HS 10/13/19 Cinnamon Bark [Cinnamon] 1 tab PO DAILY 10/13/19 Clopidogrel Bisulfate [Plavix] 75 mg PO DAILY 10/13/19 Empagliflozin [Jardiance] 10 mg PO DAILY 10/13/19 Metoprolol Succinate 1 tab PO DAILY 10/13/19 Rivaroxaban [Xarelto] 2.5 mg PO BID 10/13/19 Sitagliptin Phosphate [Januvia] 100 mg PO DAILY 10/13/19 Vitamin D - 1 tab PO DAILY 10/13/19 Gabapentin [Neurontin -] 300 mg PO BID capsule 06/02/20 Lisinopril 5 mg PO DAILY #30 tablet 06/02/20 Metformin HCl [Glucophage] 500 mg PO BID 06/21/20 Anemia: No Asthma: No Cancer: No Cardiac Disorders: No CVA: No COPD: No CHF: No Dementia: No Diabetes: Yes GI Disorders: No Disorders: No HTN: Yes Hypercholesterolemia: Yes Liver Disease: No Seizures: No Thyroid Disease: No - Surgical History Abdominal Surgery: No Appendectomy: No Cardiac Surgery: No Cholecystectomy: No Lung Surgery: No Neurologic Surgery: No Orthopedic Surgery: Yes (left foot titanium) - Immunization History Immunization Up to Date: Yes - Psycho-Social/Smoking History Smoking History: Former smoker Have you smoked in the past 12 months: No If you are a former smoker, when did you quit?: 3 yrs ago Information on smoking cessation initiated: Yes - Substance Abuse Hx (Audit-C & DAST Scrn) How often the patient has a drink containing alcohol: Never Score: In Men: 4 or > Positive; In Women: 3 or > Positive: 0 Screen Result (Pos requires Nsg. Audit-10AR): Negative Review of Systems - Review of Systems Comments:: 07/18/20 17:03 CONSTITUTIONAL: Denies F / C HEENT: Denies sore throat, rhinorrhea RESP: Denies SOB, cough CARD: Denies chest pain GI: Denies N / V / D, abdominal pain, inability to tolerate PO : Denies dysuria NEURO: +chronic neuropathy of the b/l feet MSK: Denies back pain SKIN: +wound, purulence, and odor of the right foot *Physical Exam - Vital Signs Last Vital Signs Temp Pulse Resp BP Pulse Ox 98.6 F 87 20 134/77 99 07/17/20 23:24 07/17/20 23:24 07/17/20 23:24 07/17/20 23:24 07/17/20 23:24 - Physical Exam 07/18/20 17:03 GEN: NAD, comfortable. AAOx3. HEENT: NC/AT. No facial asymmetry. Normal voice. Supple neck w/ FROM. CV: S1/S2, RRR, no m/r/g LUNG: CTAB, no wheezes, crackles, rales, rhonchi. GI: Soft, ndnt, +BS, no guarding, no rebound. No masses. MSK: s/p right great toe amputation; erythema and swelling involving the right second toe - there is an open wound with purulence and foul smell. Right 3rd toe swelling and erythema with a small ulceration of the superomedial aspect. Foot is warm and of normal color but pulses not well appreciated on either side. There is no extension of erythema beyond the margins of the 2nd and 3rd toe. Left foot is grossly normal in appearance. SKIN: Warm, dry, no rashes appreciated EXCEPT as stated in the MSK exam PSYCH: Normal mood and affect. NEURO: Moving all extremities ED Treatment Course - LABORATORY CBC & Chemistry Diagram: 07/18/20 11:33 07/18/20 11:33 - RADIOLOGY Radiology Studies Ordered: Category Date Time Status LOWER EXTREMITY CT W/O CONTR [CT] Stat CT Scan 07/18/20 00:36 Ordered CHEST X-RAY PORTABLE* [RAD] Stat Radiology 07/18/20 00:35 Ordered Medical Decision Making - Medical Decision Making 07/18/20 17:03 54M w/ diabetic neuropathy and chronic wound care presenting with foul smelling purulent drainage of right 2nd toe wound. 2nd and 3rd right toes are swollen and erythematous. Right foot is of normal color and warmth. sepsis w/u CT foot vanc + cefepime EKG 01:21 HR 76, wnl interval and axis, NSR, 2mm MALIKA V2-3 unchanged from prior 07/18/20 03:20 EXAM: LOWER EXTREMITY CT W/O CONTR HISTORY: Evaluate for gas COMPARISON: None. FINDINGS: Mild subcutaneous edema is noted, possible cellulitis. No soft tissue air. No fluid collections. Vascular calcifications are noted. The bones are normal. No significant arthritis of the knee or ankle. IMPRESSION: Possible cellulitis without soft tissue air, abscess or CT findings of osteomyelitis. One or more of the following dose reduction techniques were used: automated exposure control, adjustment of the mA and/or kV according to patient size, use of iterative reconstructive technique. THIS DOCUMENT HAS BEEN ELECTRONICALLY SIGNED David Driver MD 07/18/2020 02:46 EST Lauren. Please call Imaging Bridal Sales Consultant [phone] ([phone]) with questions. INTERPRETING RADIOLOGIST: Олег Driver MD Electronically Signed: Jul 18, 2020 02:47AM EDT 07/18/20 06:55 labs were reviewed patient was endorsed to the hospitalist team for admission and further management Discharge - Discharge Information Problems reviewed: Yes Clinical Impression/Diagnosis: Diabetic foot infection Condition: Fair - Admission Yes - Follow up/Referral - Patient Discharge Instructions - Post Discharge Activity
[2020-07-18] MEDS ORDERED: CEFEPIME 1 GM/100 ML BAG IVPB ONE (01:34)
[2020-07-18] MEDS ORDERED: VANCOMYCIN 1 GRAM (PRE-DOCKED) 1,000 MG/250 ML BAG IVPB ONE ×2 (01:34→10:00)
[2020-07-18 01:45] LABS: BASO % 0.5 % (0-2.0); EOS % 1.5 % (0-4.5); HEMATOCRIT 30.7 % (35.4-49); HEMOGLOBIN 10.2 GM/dL (11.7-16.9); LYMPH % 18.6 % (8-40); MCH 29.1 pg (25.7-33.7); MCHC 33.2 g/dl (32.0-35.9); MEAN CELL VOLUME 87.5 fl (80-96); MEAN PLT VOLUME 8.3 fl (7.5-11.1); MONO % 10.2 % (3.8-10.2); NEUT % 69.2 % (42.8-82.8); PLATELET COUNT 208 K/MM3 (134-434); RBC 3.51 M/mm3 (4.00-5.60); RDW 15.2 % (11.9-15.9); WHITE BLOOD COUNT 9.5 K/mm3 (4.0-10.0)
[2020-07-18 01:58] LABS: INR 1.21 (0.83-1.09); PROTHROMBIN TIME (PATIENT) 14.3 SEC (9.7-13.0)
[2020-07-18 02:00] LABS: ACTIVATED PTT 38.2 SECONDS (25.2-36.5)
[2020-07-18 02:14] LABS: ALBUMIN 3.1 g/dl (3.4-5.0); ALK PHOS 93 U/L (45-117); ANION GAP 10 MMOL/L (8-16); BILIRUBIN,TOTAL 0.2 mg/dL (0.2-1); BLOOD UREA NITROGEN 35.8 mg/dL (7-18); CALCIUM 8.7 mg/dL (8.5-10.1); CHLORIDE 106 mmol/L (98-107); CO2 22 mmol/L (21-32); CREATININE 1.5 mg/dL (0.55-1.3); GLUCOSE,RANDOM 153 mg/dL (74-106); POTASSIUM 4.4 mmol/L (3.5-5.1); SGOT/AST 15 U/L (15-37); SGPT/ALT 17 U/L (13-61); SODIUM 138 mmol/L (136-145); TOT PROT 6.9 g/dl (6.4-8.2)
--- NOTE | 2020-07-18 04:38 | PN ---
Teaching Attending Note Name of Resident: Marcia Molina ATTENDING PHYSICIAN STATEMENT I saw and evaluated the patient. I reviewed the resident's note and discussed the case with the resident. I agree with the resident's findings and plan as documented. SUBJECTIVE: Patient is a 54 year old man with a PMH of HTN, HLD, NIDDM, PVD (s/p stents), Right big toe amputation, Right second toe partial amputation, Charcot joints presents with purulent right second toe wound for 2 days. Tested negative for COVID-19 on 05/30/2020. On Xarelto 2.5 mg BID - ? given for cardiovascular risk reduction in view of PAD. Patient denies chest pain, shortness of breath, abdominal pain, headache, palpitations, dizziness, fever, chills, nausea, vomiting, diarrhea, constipation, dysuria, frequency, urgency, melena, hematochezia or hematuria. Denies alcohol, tobacco or illicit drug use. No sick contacts or recent travels. Family history is unremarkable. OBJECTIVE: Alert Vital Signs Period Temp Pulse Resp BP Sys/[place] Pulse Ox Last 24 Hr 98.6 F 87 20 134/77 99 HEENT: No Jaundice, eye redness or discharge, PERRLA, EOMI. Normocephalic, atraumatic. External ears are normal and hearing is grossly intact. No nasal discharge. Neck: Supple, nontender. No palpable adenopathy or thyromegaly. No JVD Chest: Good effort. Clear to auscultation and percussion. Heart: Regular. No S3, rub or murmur Abdomen: Not distended, soft, nontender and no HSM. No rebound or guarding. Normal bowel sounds. Ext: Peripheral pulses intact. No leg edema. Amputated right big toe. Wound on right second toe with foul smelling purulent discharge and warm foot. Skin: Warm and dry. No petechiae, rash or ecchymosis. Neuro: Alert. Oriented x3. CN 2-12 grossly intact. Sensation grossly intact in all four extremities and DTR are symmetric. Psych: Appropriate mood and affect. Good insight. Home Medications Medication Instructions Recorded Atorvastatin Ca [Lipitor] 20 mg PO HS 10/13/19 Cinnamon Bark [Cinnamon] 1 tab PO DAILY 10/13/19 Clopidogrel Bisulfate [Plavix] 75 mg PO DAILY 10/13/19 Empagliflozin [Jardiance] 10 mg PO DAILY 10/13/19 Metoprolol Succinate 1 tab PO DAILY 10/13/19 Rivaroxaban [Xarelto] 2.5 mg PO BID 10/13/19 Sitagliptin Phosphate [Januvia] 100 mg PO DAILY 10/13/19 Vitamin D - 1 tab PO DAILY 10/13/19 Gabapentin [Neurontin -] 300 mg PO BID capsule 06/02/20 Lisinopril 5 mg PO DAILY #30 tablet 06/02/20 Metformin HCl [Glucophage] 500 mg PO BID 06/21/20 Abnormal Lab Results 07/18/20 07/18/20 07/18/20 01:10 01:10 01:10 RBC 3.51 L Hgb 10.2 L Hct 30.7 L PT with INR 14.30 H INR 1.21 H PTT (Actin FS) 38.2 H BUN 35.8 H Creatinine 1.5 H Random Glucose 153 H Albumin 3.1 L Ur Specific [place] Urine Glucose (UA) Urine Ketones 07/18/20 02:41 RBC Hgb Hct PT with INR INR PTT (Actin FS) BUN Creatinine Random Glucose Albumin Ur Specific [place] 1.005 L Urine Glucose (UA) 3+ H Urine Ketones Trace H Current Medications Generic Name Dose Route Start Last Admin Trade Name Freq PRN Reason Stop Dose Admin Insulin Aspart 0 units 07/18/20 07:00 Novolog Vial SQ [facility] Protocol Current Medications Generic Name Dose Route Start Last Admin Trade Name Freq PRN Reason Stop Dose Admin Piperacillin Sod/Tazobactam 50 mls @ 100 mls/hr 07/18/20 10:00 Sod 3.375 gm/ Dextrose IVPB Q8H-IV [facility] Protocol Insulin Aspart 0 units 07/18/20 07:00 Novolog Vial SQ ACHS [facility] Protocol Vancomycin HCl 1,000 mg 07/18/20 10:00 Vancomycin (Pre-Docked) IVPB DAILY [facility] Protocol ASSESSMENT AND PLAN: 1. Infected toe wound/Cellulitis - CT scan of right foot: FINDINGS: Mild subcutaneous edema is noted, possible cellulitis. No soft tissue air. No fluid collections. Vascular calcifications are noted. The bones are normal. No significant arthritis of the knee or ankle. IMPRESSION: Possible cellulitis without soft tissue air, abscess or CT findings of osteomyelitis. One or more of the following dose reduction techniques were used: automated exposure control, adjustment of the mA and/or kV according to patient size, use of iterative reconstructive technique. CXR shows cardiomegaly with no evidence of acute lung disease. Will get wound culture, right foot MRI, provide daily wound care, treat with IV Vancomycin and Zosyn - dose adjusted for GFR. Consult ID/Podiatry and Wound care. Viral testing for COVID-19 ordered and patient placed on airborne, droplet and contact isolation. EKG shows NSR at 76/minute and QTc 427, inferior was MD of indeterminate age with no acute ischemic ST-T wave changes. Will continue comprehensive care for all of patients comorbid conditions including Xarelto for ?PAD/stent. 2. Hypoalbuminemia - Possibly due to combined effects of proteinuria, malnutrition and inflammation associated with comorbid conditions. Will ensure adequate dietary protein intake and also consult croze machine operator. 3. DM For now, we will hold the home diabetes drugs and implement sliding scale insulin regimen. Provide comprehensive diabetes care with patient teaching and counseling about the importance of adherence to prescribed diabetes regimen, euglycemia, eye care and foot care. 4. CKD Likely diabetic nephropathy. Will get kidney sonogram, hydrate gently, monitor urine output and consult Nephrology. Avoid nephrotoxic agents such as NSAIDS, aminoglycosides, contrast dyes and certain Alternative medicine products. 5. Anemia Likely multifactorial including CKD, frequent blood draws and chronic inflammation. Will do basic anemia work up including serial stool guaiacs, reticulocyte count and iron studies. 6. Obesity Counseled on the risks associated with obesity. Will provide patient all the necessary assistance, counseling and positive reinforcement to facilitate weight loss. Consult croze machine operator. 7. Hypertension Will restart suitable outpatient antihypertensive drugs when clinically appropriate. Subsequently, will revise regimen to ensure [id number] excellent BP control. Patient counseled on the injurious effects of uncontrolled hypertension. Nonpharmacologic measures to control hypertension like weight loss, salt restriction and exercise stressed. Importance of adherence to treatment regimen and attainment of normotension emphasized. 8. DVT prophylaxis - On Xarelto. 9. Advance directives - Full code
[2020-07-18 05:01] LABS: URINE APPEARANCE CLEAR; URINE BILIRUBIN NEGATIVE (NEGATIVE); URINE COLOR YELLOW; URINE GLUCOSE (UA) 3+ (NEGATIVE); URINE KETONE TRACE (NEGATIVE)
[2020-07-18 05:02] LABS: URINE LEUK ESTERASE N (NEGATIVE); URINE NITRITE NEGATIVE (NEGATIVE); URINE PROTEIN N (NEGATIVE); URINE UROBILINOGEN 0.2 mg/dL (0.2-1.0)
[2020-07-18] MEDS ORDERED: HEPARIN NA (PORCINE) 5,000 UNITS/ML 1ML VIAL SQ ONE (05:03)
[2020-07-18] MEDS ORDERED: HEPARIN NA (PORCINE) 5,000 UNITS/ML 1ML VIAL ONE ×2 (06:20→22:22)
--- NOTE | 2020-07-18 07:00 | HP ---
CHIEF COMPLAINT: PCP: HISTORY OF PRESENT ILLNESS: Patient is a 54 year old man with a PMH of HTN, HLD, NIDDM, PVD, Right big toe amputation 2/2 osteomyelitis, right second toe partial atraumatic amputation now c/o purulent foul smelling discharge form right second toe wound for 2 days. The toe injury was preceeded by blisters/boil which was drained in the clinic. Patient has been coming to [facility] 2x/weekly for wound dressing and says that the toe has been progressively shortening with each dressing. There is no associated pain, trauma to affected toe, insect or animal bite, bleedig or clotting disorder, rash, fever. Patient denies chest pain, shortness of breath, abdominal pain, headache, palpitations, dizziness, fever, chills, nausea, vomiting, diarrhea, constipation, dysuria, frequency, urgency, melena, hematochezia or hematuria. ER course was notable for: (1) Oxygen therapy (2) (3) Recent Travel: None PAST SURGICAL HISTORY: Rt great toe amputation due to non healing osteomyelitis 2/2 ingrowing toe nail Social History: Smoking:None Alcohol:None Drugs: None Allergies: No known allergy HOME MEDICATIONS: Home Medications Medication Instructions Recorded Atorvastatin Ca [Lipitor] 20 mg PO HS 10/13/19 Cinnamon Bark [Cinnamon] 1 tab PO DAILY 10/13/19 Clopidogrel Bisulfate [Plavix] 75 mg PO DAILY 10/13/19 Empagliflozin [Jardiance] 10 mg PO DAILY 10/13/19 Metoprolol Succinate 1 tab PO DAILY 10/13/19 Rivaroxaban [Xarelto] 2.5 mg PO BID 10/13/19 Sitagliptin Phosphate [Januvia] 100 mg PO DAILY 10/13/19 Vitamin D - 1 tab PO DAILY 10/13/19 Gabapentin [Neurontin -] 300 mg PO BID capsule 06/02/20 Lisinopril 5 mg PO DAILY #30 tablet 06/02/20 Metformin HCl [Glucophage] 500 mg PO BID 06/21/20 REVIEW OF SYSTEMS: Negative except as above Vital Signs - 24 hr 07/17/20 23:24 Temperature 98.6 F Pulse Rate 87 Respiratory 20 Rate Blood Pressure 134/77 O2 Sat by Pulse 99 Oximetry (%) PHYSICAL EXAMINATION GENERAL: Awake, alert, and fully oriented, in no acute distress. HEAD: Normal with no signs of trauma. EYES: Pupils equal, round and reactive to light, extraocular movements intact, sclera anicteric, conjunctiva clear. NECK: Normal range of motion, supple without lymphadenopathy LUNGS: Vesicular breath sounds equal b/l, clear to auscultation bilaterally. No obvious sign of respiratory distress HEART: Regular rate and rhythm, normal S1 and S2 without murmur, rub or gallop. ABDOMEN: Soft, nontender, not distended, normoactive bowel sounds,no masses. No hepatomegaly or splenomegaly. MUSCULOSKELETAL: No CVA tenderness. UPPER EXTREMITIES: 2+ pulses, warm, well-perfused. No cyanosis. No clubbing. No peripheral edema. LOWER EXTREMITIES: Left great toe amputated. Idiopathic partial amputation of Left 1st toe and a mildly affected left 2nd toe. Sensation 1/3 on b/l distal 1/3 both feet. NEUROLOGICAL: Cranial nerves II-XII intact. Normal speech. Power 5/5 on all limbs. Sensation 1/3 on b/l distal feet PSYCHIATRIC: Cooperative. Good eye contact. Appropriate mood and affect. SKIN: Warm, dry, normal turgor, no rashes or lesions noted Laboratory Results - last 24 hr 07/18/20 07/18/20 07/18/20 01:10 01:10 01:10 WBC 9.5 RBC 3.51 L Hgb 10.2 L Hct 30.7 L MCV 87.5 MCH 29.1 MCHC 33.2 RDW 15.2 Plt Count 208 MPV 8.3 Absolute Neuts (auto) 6.6 Neutrophils % 69.2 Lymphocytes % 18.6 D Monocytes % 10.2 Eosinophils % 1.5 D Basophils % 0.5 D Nucleated RBC % 0 PT with INR 14.30 H INR 1.21 H PTT (Actin FS) 38.2 H Sodium 138 Potassium 4.4 Chloride 106 Carbon Dioxide 22 Anion Gap 10 BUN 35.8 H Creatinine 1.5 H Est GFR (CKD-EPI)AfAm 59.88 Est GFR (CKD-EPI)NonAf 51.67 Random Glucose 153 H Lactic Acid Calcium 8.7 Total Bilirubin 0.2 AST 15 ALT 17 Alkaline Phosphatase 93 Creatine Kinase 95 Troponin I < 0.02 Total Protein 6.9 Albumin 3.1 L Urine Color Urine Appearance Urine pH Ur Specific [place] Urine Protein Urine Glucose (UA) Urine Ketones Urine Blood Urine Nitrite Urine Bilirubin Urine Urobilinogen Ur Leukocyte Esterase 07/18/20 07/18/20 01:10 02:41 WBC RBC Hgb Hct MCV MCH MCHC RDW Plt Count MPV Absolute Neuts (auto) Neutrophils % Lymphocytes % Monocytes % Eosinophils % Basophils % Nucleated RBC % PT with INR INR PTT (Actin FS) Sodium Potassium Chloride Carbon Dioxide Anion Gap BUN Creatinine Est GFR (CKD-EPI)AfAm Est GFR (CKD-EPI)NonAf Random Glucose Lactic Acid 0.9 Calcium Total Bilirubin AST ALT Alkaline Phosphatase Creatine Kinase Troponin I Total Protein Albumin Urine Color Yellow Urine Appearance Clear Urine pH 5.0 Ur Specific [place] 1.005 L Urine Protein N Urine Glucose (UA) 3+ H Urine Ketones Trace H Urine Blood N Urine Nitrite Negative Urine Bilirubin Negative Urine Urobilinogen 0.2 Ur Leukocyte Esterase N ASSESSMENT/PLAN: Patient is a 54 year old man with a PMH of HTN, HLD, NIDDM, PVD, Right big toe amputation 2/2 osteomyelitis, right second toe partial atraumatic amputation now c/o purulent foul smelling discharge form right second toe wound for 2 days. #INFECTED TOE WOUND/CELLULITIS: -CT of rt foot suggest possible cellulitis without soft tissue air, abscess or CT findings of osteomyelitis -Wound Culture -Right foot MRI -Daily wound care -IV Vancomycin and Zosyn; dose adjusted for GFR. -Consult ID/Podiatry and Wound care. -EKG shows NSR at 76/minute and QTc 427, inferior was [place] of indeterminate age with no acute ischemic ST-T wave changes. -Continue Xarelto as recommended and Rx for other associating comorbid conditions #HYPOALBUMINEMIA: --Likely 2/2 malnutrition as seen in alcohol use disorder as well as exhaustion seen in chronic inflammation/some comorbid conditions. -Educate patient on healthy sources of dietary protein intake and also consult beam carrier hauler pusher. #DIABETES MELLITUS: -Hold home DM med -ISS ACHS. -Patient educated on the importance of med adherence in maintaining optimal glucose control and prevention of complication. -Patient educated to f/u for eye care and foot care and why #CKD: -Likely 2/2 diabetic nephropathy. -Kidney sonogram, hydrate gently, monitor urine output and consult Nephrology. -Avoid nephrotoxic agents such as NSAIDS, aminoglycosides, contrast dyes and certain Alternative medicine products. #ANEMIA: -Likely multifactorial including CKD, frequent blood draws and chronic inflammation. -Basic anemia work up including serial stool guaiacs, reticulocyte count and iron studies to be ordered #OBESITY: -Counseled on the risks associated with obesity. -Regional Flatbed Truck Driver patient on options he can try for weight loss including exercise and low carbs/low fat diet -Consult beam carrier hauler pusher. -Viral testing for COVID-19 ordered. -Implement airborne, droplet and contact isolation until Covid-19 r/o infecion r/o #HTN: -To restart outpatient antihypertensive drugs when clinically appropriate. -Review antiHTN meds as neccessary for optimal BP control. -Patient counseled on the benefits of optimal BP control and injurious effects of uncontrolled hypertension. -Nonpharmacologic measures to control hypertension like weight loss, salt restriction and exercise stressed. -CXR shows cardiomegaly with no evidence of acute lung disease. #DISPOSITION: -DVT prophylaxis: On Xarelto. -Advance directives - Full code -F/U pending lab results Family Medical History Family History: Unremarkable Visit type - Emergency Visit Emergency Visit: Yes ED Registration Date: 07/18/20 Care time: The patient presented to the Emergency Department on the above date and was hospitalized for further evaluation of their emergent condition. - New Patient This patient is new to me today: Yes Date on this admission: 07/18/20 - Critical Care Critical Care patient: No ATTENDING PHYSICIAN STATEMENT I saw and evaluated the patient. I reviewed the resident's note and discussed the case with the resident. I agree with the resident's findings and plan as documented. SUBJECTIVE: OBJECTIVE: ASSESSMENT AND PLAN:
--- NOTE | 2020-07-18 08:06 | CONSULT ---
- Consultation REQUESTING PROVIDER: Grant Zapien - Vascular/Wound Care CONSULT REQUEST: We have been asked to surgically evaluate this patient for PCP: Michael Gooden HPI: Called to eval 54yo male w/ PMHx as noted below. Well known to both Drs. Zapien (Vascular) and Shruthi (Podiatry). S/p right second digit partial amputation with dehiscence of surgical incision, now with diabetic ulcer second digit (Shruthi). Currently getting HBO as out-patient under Dr. Zapien's care. Ambulating with surgical offloading shoe. He notes mild malodor to the ulcer, a bit worsening of ulcer. LLE CT scan: Mild subcu edema. possible cellulitis. No soft tissue air. No fluid collections. Vascular calcifications are noted. The bones are normal. No significant arthritis of the knee or ankle. No OM. PMHx: HTN, HLD, NIDDM, PVD (s/p stents), , Charcot joints PSHx: Right big toe amputation Right second toe partial amputation Apligraf application x 1 week. Home Medications Atorvastatin Ca [Lipitor] 20 mg PO HS 10/13/19 Cinnamon Bark [Cinnamon] 1 tab PO DAILY 10/13/19 Clopidogrel Bisulfate [Plavix] 75 mg PO DAILY 10/13/19 Empagliflozin [Jardiance] 10 mg PO DAILY 10/13/19 Metoprolol Succinate 1 tab PO DAILY 10/13/19 Rivaroxaban [Xarelto] 2.5 mg PO BID 10/13/19 Sitagliptin Phosphate [Januvia] 100 mg PO DAILY 10/13/19 Vitamin D - 1 tab PO DAILY 10/13/19 Gabapentin [Neurontin -] 300 mg PO BID capsule 06/02/20 Lisinopril 5 mg PO DAILY #30 tablet 06/02/20 Metformin HCl [Glucophage] 500 mg PO BID 06/21/20 Allergies: NKDA REVIEW OF SYSTEMS: 12 system review conducted and considered negative except for what's contained in the HPI. PE: GENERAL: a&o. nad HEAD: nc.at LUNGS: unlabored respirations on room air HEART: rrr LE: No ischemic changes to the foot. The foot is warm and well perfused. Pedal pulses dopplerable, cap refill < 3 sec. Right 3rd toe swollen, erythematous, with small ulceration . No fluctuance, no streaking ascending cellulitis. No ttp. PSYCH: Cooperative. Good eye contact. Appropriate mood and affect. Last Vital Signs Temp Pulse Resp BP Pulse Ox 98.6 F 87 20 134/77 99 07/17/20 23:24 07/17/20 23:24 07/17/20 23:24 07/17/20 23:24 07/17/20 23:24 CBC, BMP 07/18/20 01:10 07/18/20 01:10 INR, PTT INR 1.21 (0.83-1.09) H 07/18/20 01:10 Problem List - Problems (1) Diabetic foot infection Assessment/Plan: Cont local wound care. f/u with Dr. Zapien in Wound Care to continue HBO as necessary Tight glycemic control Medical management f/u w/ MADHU Hawkins for Podiatric related issues No vascular intervention On behalf of Dr. Zapien, thank you for the opportunity to participate in your patient's care. Code(s): E11.628 - TYPE 2 DIABETES MELLITUS WITH OTHER SKIN COMPLICATIONS; L08.9 - LOCAL INFECTION OF THE SKIN AND SUBCUTANEOUS TISSUE, UNSP (2) CKD (chronic kidney disease) Code(s): N18.9 - CHRONIC KIDNEY DISEASE, UNSPECIFIED Qualifiers: Chronic kidney disease stage: stage 2 (mild) Qualified Code(s): N18.2 - Chronic kidney disease, stage 2 (mild) (3) HTN (hypertension) Code(s): I10 - ESSENTIAL (PRIMARY) HYPERTENSION (4) PAD (peripheral artery disease) Code(s): I73.9 - PERIPHERAL VASCULAR DISEASE, UNSPECIFIED Visit type - Case Type Case Type: ED Admission - Emergency Emergency Visit: Yes ED Registration Date: 07/18/20 Care time: The patient presented to the Emergency Department on the above date and was hospitalized for further evaluation of their emergent condition. - New patient This patient is new to me today: Yes Date on this admission: 07/18/20
[2020-07-18] MEDS: INSULIN (NOVOLOG) ASPART 100 UNITS/ML 10ML VIAL SQ SCH ×4 (09:01→22:31)
--- NOTE | 2020-07-18 09:14 | EKG ---
Test Reason : Blood Pressure : / mmHG Vent. Rate : 076 BPM Atrial Rate : 076 BPM P-R Int : 146 ms QRS Dur : 118 ms QT Int : 380 ms P-R-T Axes : 046 -18 011 degrees QTc Int : 427 ms NORMAL SINUS RHYTHM INFERIOR INFARCT (CITED ON OR BEFORE 30-MAY-2020) ABNORMAL ECG WHEN COMPARED WITH ECG OF 30-MAY-2020 11:41, NO SIGNIFICANT CHANGE WAS FOUND Confirmed by NERIS CRANE MD ([id number]) on 07/18/2020 9:14:07 AM Referred By: Confirmed By:NERIS CRANE MD
[2020-07-18] MEDS ORDERED: PIPERACILLIN/TAZOB 3.375 GM 3.375 GM/50 ML BAG IVPB ONE ×2 (09:16→18:30)
[2020-07-18] MEDS: PIPERACILLIN/TAZOB 3.375 GM 3.375 GM in DEXTROSE 5%-WATER - 50 ML IVPB SCH ×2 (09:45→18:39)
[2020-07-18] MEDS ORDERED: PIPERACILLIN/TAZOB 3.375 GM 3.375 GM in DEXTROSE 5%-WATER - 50 ML IVPB SCH ×2 (10:00→18:00)
[2020-07-18 12:29] LABS: BASO % 0.5 % (0-2.0); EOS % 1.6 % (0-4.5); HEMATOCRIT 31.9 % (35.4-49); HEMOGLOBIN 10.6 GM/dL (11.7-16.9); LYMPH % 15.7 % (8-40); MCH 28.9 pg (25.7-33.7); MCHC 33.1 g/dl (32.0-35.9); MEAN CELL VOLUME 87.1 fl (80-96); MEAN PLT VOLUME 8.3 fl (7.5-11.1); MONO % 10.1 % (3.8-10.2); NEUT % 72.1 % (42.8-82.8); PLATELET COUNT 205 K/MM3 (134-434); RBC 3.66 M/mm3 (4.00-5.60); RDW 15.3 % (11.9-15.9); WHITE BLOOD COUNT 7.7 K/mm3 (4.0-10.0)
[2020-07-18 13:13] LABS: RETICULOCYTES 1.77 % (0.5-1.5)
--- NOTE | 2020-07-18 13:14 | CONSULT ---
Consult - text type - Consultation Consultation Note: Podiatry Consultation: 54 year old diabetic PVD male, well known to me from wound healing center, presents with cellulitis and discharge from 2nd digit. S/p right second digit partial amputation for osteomyelitis distal phalanx. Developed dehiscence of the surgical incision. S/p application of skin substitute graft x 1 week in wound healing center. Patient's noted foul smell which prompted ED admission. He denies F/V/N/C/SOB/CP. AFebrile. Known to be non-adherent to minimizing weightbearing activity. 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 PMHx: DM, HTN, HLP, CAD, PVD s/p RLE angioplasty (Dr. Echols [facility]) Meds: noted ALL: NKMA REVA: R foot: Pedal pulses dopplerable, TG warm-warm, CFT brisk to remaining digits. There is a a second digit amputation stump diabetic ulcer with eschar present, underlying fibrogranular base, mild seropurulent drainage. There is probing deep, moderate periwound erythema. There is no soft tissue crepitus, no streaking ascending cellulitis. Moderate forefoot edema. There is a right third digit superficial eschar, dry and stable. R foot XR/CT: no evidence of gas, no abscess collection Imp: 54 year old diabetic male with right second digit diabetic infection, cellulitis 1. IV abx, ID consultation 2. Needs MRI R foot to evaluate for osteomyelitis 3. If MRI(+) will need second digit amputation, likely for Saturday 4. Will closely follow. Thank you for the courtesy of this consultation Karrie Hawkins DPM
[2020-07-18 13:31] LABS: ALBUMIN 3.1 g/dl (3.4-5.0); BILIRUBIN,TOTAL 0.4 mg/dL (0.2-1); BLOOD UREA NITROGEN 32.6 mg/dL (7-18); CALCIUM 8.7 mg/dL (8.5-10.1); CREATININE 1.4 mg/dL (0.55-1.3); PHOSPHOROUS 4.4 mg/dL (2.5-4.9); POTASSIUM 4.4 mmol/L (3.5-5.1)
--- NOTE | 2020-07-18 14:36 | PN ---
Teaching Attending Note Name of Resident: Miki Valenzuela ATTENDING PHYSICIAN STATEMENT I saw and evaluated the patient. I reviewed the resident's note and discussed the case with the resident. I agree with the resident's findings and plan as documented. SUBJECTIVE: This patient is a 54yo with PMhx of T2DM, PVD, osteomyelitis distal phalanx,righ t second digit partial amputation presents to the ED. with cellulitis and discharge from 2nd digit. Denies any fever or chills. OBJECTIVE: Vital Signs Temperature 98.3 F 07/18/20 09:31 Pulse Rate 74 07/18/20 09:31 Respiratory Rate 17 07/18/20 09:31 Blood Pressure 149/89 07/18/20 09:31 O2 Sat by Pulse Oximetry (%) 100 07/18/20 09:31 PE: per resident's note Left great toe amputated CBCD WBC 7.7 K/mm3 (4.0-10.0) 07/18/20 11:33 RBC 3.66 M/mm3 (4.00-5.60) L 07/18/20 11:33 Hgb 10.6 GM/dL (11.7-16.9) L 07/18/20 11:33 Hct 31.9 % (35.4-49) L 07/18/20 11:33 MCV 87.1 fl (80-96) 07/18/20 11:33 MCHC 33.1 g/dl (32.0-35.9) 07/18/20 11:33 RDW 15.3 % (11.9-15.9) 07/18/20 11:33 Plt Count 205 K/MM3 (134-434) 07/18/20 11:33 MPV 8.3 fl (7.5-11.1) 07/18/20 11:33 CMP Sodium 137 mmol/L (136-145) 07/18/20 11:33 Potassium 4.4 mmol/L (3.5-5.1) 07/18/20 11:33 Chloride 104 mmol/L (98-107) 07/18/20 11:33 Carbon Dioxide 22 mmol/L (21-32) 07/18/20 11:33 Anion Gap 10 MMOL/L (8-16) 07/18/20 11:33 BUN 32.6 mg/dL (7-18) H 07/18/20 11:33 Creatinine 1.4 mg/dL (0.55-1.3) H 07/18/20 11:33 Random Glucose 194 mg/dL (74-106) H 07/18/20 11:33 Calcium 8.7 mg/dL (8.5-10.1) 07/18/20 11:33 Total Bilirubin 0.4 mg/dL (0.2-1) 07/18/20 11:33 AST 10 U/L (15-37) L 07/18/20 11:33 ALT 18 U/L (13-61) 07/18/20 11:33 Alkaline Phosphatase 90 U/L (45-117) 07/18/20 11:33 Total Protein 7.0 g/dl (6.4-8.2) 07/18/20 11:33 Albumin 3.1 g/dl (3.4-5.0) L 07/18/20 11:33 CARDIAC ENZYMES Creatine Kinase 95 U/L (26-308) 07/18/20 01:10 Troponin I < 0.02 ng/ml (0.00-0.05) 07/18/20 01:10 Current Medications Generic Name Dose Route Start Last Admin Trade Name Freq PRN Reason Stop Dose Admin Piperacillin Sod/Tazobactam 50 mls @ 100 mls/hr 07/18/20 10:00 Sod 3.375 gm/ Dextrose IVPB Q8H-IV FIDELINA Protocol Piperacillin Sod/Tazobactam 50 mls @ 100 mls/hr 07/18/20 10:00 07/18/20 09:45 Sod 3.375 gm/ Dextrose IVPB 07/19/20 02:29 100 mls/hr Q8H-IV FIDELINA Administration Protocol Insulin Aspart 0 units 07/18/20 07:00 07/18/20 12:19 Novolog Vial SQ Not Given ACHS FIDELINA Protocol Vancomycin HCl 1,000 mg 07/18/20 10:00 Vancomycin (Pre-Docked) IVPB DAILY FIDELINA Protocol Home Medications Medication Instructions Recorded Atorvastatin Ca [Lipitor] 20 mg PO HS 10/13/19 Cinnamon Bark [Cinnamon] 1 tab PO DAILY 10/13/19 Clopidogrel Bisulfate [Plavix] 75 mg PO DAILY 10/13/19 Empagliflozin [Jardiance] 10 mg PO DAILY 10/13/19 Metoprolol Succinate 1 tab PO DAILY 10/13/19 Rivaroxaban [Xarelto] 2.5 mg PO BID 10/13/19 Sitagliptin Phosphate [Januvia] 100 mg PO DAILY 10/13/19 Vitamin D - 1 tab PO DAILY 10/13/19 Gabapentin [Neurontin -] 300 mg PO BID capsule 06/02/20 Lisinopril 5 mg PO DAILY #30 tablet 06/02/20 Metformin HCl [Glucophage] 500 mg PO BID 06/21/20 CT of RLE without Contrast: no evidence of gas, no abscess collection, as per Dr Bruner (radiologist) ASSESSMENT AND PLAN: This patient is a 54yo with PMhx of T2DM, PVD, osteomyelitis distal phalanx,right second digit partial amputation presents to the ED. with cellulitis and discharge from 2nd digit. Patient is known to wound care clinic. #Right 2nd digit cellulits with an abscess: On Iv antibiotic: zosyn/vanco s/p cefepime, ID on the case , will need a MRI R foot to evaluate for osteomyelitis, as per podiatry if MRI(+) will need second digit amputation, most likely on Saturday. #Hx of Osteomyelitis with amputation #T2DM: SS with coverage #Covid pending DvT Px: Heparin sq
--- NOTE | 2020-07-18 15:09 | CON.ID ---
Consult Consult Specialty:: infetious disease Referred by:: hospitalist Reason for Consultation:: osteo of the foot,wound infection,cellulitis of the leg - History of Present Illness Chief Complaint: cellulitis of the leg and wound infection History of Present Illness: 54 year old man with a PMH of HTN, HLD, NIDDM, PVD, Right big toe amputation 2/2 osteomyelitis, right second toe partial atraumatic amputation now c/o purulent f oul smelling discharge form right second toe wound for 2 days. The toe injury was preceeded by blisters/boil which was drained in the clinic. Patient has been coming to [facility] 2x/weekly for wound dressing and says that the toe has been progressively shortening with each dressing. podiary to see the patient - History Source History Provided By: Patient Limitations to Obtaining History: No Limitations - Smoking History Smoking history: Former smoker Have you smoked in the past 12 months: No If you are a former smoker, when did you quit?: 3 yrs ago Home Medications - Allergies Allergies/Adverse Reactions: Allergies Allergy/AdvReac Type Severity Reaction Status Date / Time No Known Allergies Allergy Verified 06/21/20 13:06 - Home Medications Home Medications: Ambulatory Orders RX: Atorvastatin Ca [Lipitor] 20 mg PO HS 10/13/19 RX: Cinnamon Bark [Cinnamon] 1 tab PO DAILY 10/13/19 RX: Clopidogrel Bisulfate [Plavix] 75 mg PO DAILY 10/13/19 RX: Empagliflozin [Jardiance] 10 mg PO DAILY 10/13/19 RX: Metoprolol Succinate 1 tab PO DAILY 10/13/19 RX: Rivaroxaban [Xarelto] 2.5 mg PO BID 10/13/19 RX: Sitagliptin Phosphate [Januvia] 100 mg PO DAILY 10/13/19 Vitamin D - 1,000 units PO DAILY 10/13/19 RX: Gabapentin [Neurontin -] 300 mg PO BID capsule 06/02/20 RX: Lisinopril 5 mg PO DAILY #30 tablet 06/02/20 RX: Metformin HCl [Glucophage] 500 mg PO BID 06/21/20 Review of Systems - Review of Systems Constitutional: reports: No Symptoms Eyes: reports: No Symptoms HENT: reports: No Symptoms Neck: reports: No Symptoms Cardiovascular: reports: No Symptoms Respiratory: reports: No Symptoms Gastrointestinal: reports: No Symptoms Genitourinary: reports: No Symptoms Musculoskeletal: reports: No Symptoms Integumentary: reports: Erythema, Other Neurological: reports: No Symptoms Endocrine: reports: No Symptoms Hematology/Lymphatic: reports: No Symptoms Psychiatric: reports: No Symptoms Physical Exam Vital Signs: Vital Signs Temperature 98.3 F 07/18/20 09:31 Pulse Rate 74 07/18/20 09:31 Respiratory Rate 17 07/18/20 09:31 Blood Pressure 149/89 07/18/20 09:31 O2 Sat by Pulse Oximetry (%) 100 07/18/20 09:31 Constitutional: Yes: Well Nourished, Calm, Anxious Eyes: Yes: Conjunctiva Clear HENT: Yes: Atraumatic, Normocephalic Neck: Yes: Supple, Trachea Midline Cardiovascular: Yes: Regular Rate and Rhythm Respiratory: Yes: Regular, CTA Bilaterally Gastrointestinal: Yes: Normal Bowel Sounds, Soft Musculoskeletal: Yes: WNL Extremities: Yes: Other Integumentary: Yes: Erythema Wound/Incision: Yes: Dressing Removed, Other (wound draining) Neurological: Yes: Alert, Oriented Psychiatric: Yes: Alert, Oriented Labs: CBC, BMP 07/18/20 11:33 07/18/20 11:33 Imaging - Results Chest X-ray: Report Reviewed, Image Reviewed Assessment/Plan Problem List - Problems (1) Diabetic foot infection Code(s): E11.628 - TYPE 2 DIABETES MELLITUS WITH OTHER SKIN COMPLICATIONS; L08.9 - LOCAL INFECTION OF THE SKIN AND SUBCUTANEOUS TISSUE, UNSP (2) CKD (chronic kidney disease) Code(s): N18.9 - CHRONIC KIDNEY DISEASE, UNSPECIFIED Qualifiers: Chronic kidney disease stage: stage 2 (mild) Qualified Code(s): N18.2 - Chronic kidney disease, stage 2 (mild) (3) HTN (hypertension) Code(s): I10 - ESSENTIAL (PRIMARY) HYPERTENSION 4 pvd 5 r/o osteo of the foot plan will start patient on abx mri to r/o osteo podiatry on case will need debridement if no osteo wound care
--- NOTE | 2020-07-18 15:18 | CONSULT ---
Consult Consult Specialty:: Nephrology Reason for Consultation:: CKD - History of Present Illness Chief Complaint: right second toe discharge History of Present Illness: Pt is a 54 year old gentleman with pmhx of htn, hld, ckd, dm, pvd, and right toe amputation who presents to the ER with discharge that is foul smelling from his second right toe. He denies fever or chills. He does follow with wound care. 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 He has history of CKD. He has not followed in the office since his last hospitalization. he denies dysuria or hematuria. - History Source History Provided By: Patient - Past Medical History Cardio/Vascular: Yes: HTN, Hyperlipdemia Renal/: Yes: Renal Inusuff Endocrine: Yes: Diabetes Mellitus - Smoking History Smoking history: Former smoker Have you smoked in the past 12 months: No If you are a former smoker, when did you quit?: 3 yrs ago Home Medications - Allergies Allergies/Adverse Reactions: Allergies Allergy/AdvReac Type Severity Reaction Status Date / Time No Known Allergies Allergy Verified 06/21/20 13:06 - Home Medications Home Medications: Ambulatory Orders Atorvastatin Ca [Lipitor] 20 mg PO HS 10/13/19 Cinnamon Bark [Cinnamon] 1 tab PO DAILY 10/13/19 Clopidogrel Bisulfate [Plavix] 75 mg PO DAILY 10/13/19 Empagliflozin [Jardiance] 10 mg PO DAILY 10/13/19 Metoprolol Succinate 1 tab PO DAILY 10/13/19 Rivaroxaban [Xarelto] 2.5 mg PO BID 10/13/19 Sitagliptin Phosphate [Januvia] 100 mg PO DAILY 10/13/19 Vitamin D - 1 tab PO DAILY 10/13/19 Gabapentin [Neurontin -] 300 mg PO BID capsule 06/02/20 Lisinopril 5 mg PO DAILY #30 tablet 06/02/20 Metformin HCl [Glucophage] 500 mg PO BID 06/21/20 Family Medical History Family History: Denies Review of Systems - Review of Systems Constitutional: reports: No Symptoms Eyes: reports: No Symptoms HENT: reports: No Symptoms Neck: reports: No Symptoms Cardiovascular: reports: No Symptoms Respiratory: reports: No Symptoms Gastrointestinal: reports: No Symptoms Genitourinary: reports: No Symptoms Integumentary: reports: Blister, Wound Neurological: reports: No Symptoms Endocrine: reports: No Symptoms Hematology/Lymphatic: reports: No Symptoms Psychiatric: reports: No Symptoms Physical Exam Vital Signs: Vital Signs Temperature 98.3 F 07/18/20 09:31 Pulse Rate 74 07/18/20 09:31 Respiratory Rate 17 07/18/20 09:31 Blood Pressure 149/89 07/18/20 09:31 O2 Sat by Pulse Oximetry (%) 100 07/18/20 09:31 Constitutional: Yes: Calm Eyes: Yes: Conjunctiva Clear HENT: Yes: Atraumatic Neck: Yes: Supple Cardiovascular: Yes: S1, S2 Respiratory: Yes: CTA Bilaterally Gastrointestinal: Yes: Soft Renal/: Yes: WNL Musculoskeletal: Yes: WNL Edema: No Neurological: Yes: Oriented Psychiatric: Yes: Oriented Labs: CBC, BMP 07/18/20 11:33 07/18/20 11:33 Problem List - Problems (1) Diabetic foot infection Code(s): E11.628 - TYPE 2 DIABETES MELLITUS WITH OTHER SKIN COMPLICATIONS; L08.9 - LOCAL INFECTION OF THE SKIN AND SUBCUTANEOUS TISSUE, UNSP (2) CKD (chronic kidney disease) Code(s): N18.9 - CHRONIC KIDNEY DISEASE, UNSPECIFIED Qualifiers: Chronic kidney disease stage: stage 2 (mild) Qualified Code(s): N18.2 - Chronic kidney disease, stage 2 (mild) (3) HTN (hypertension) Code(s): I10 - ESSENTIAL (PRIMARY) HYPERTENSION Assessment/Plan Laboratory Tests 05/27/20 05/30/20 05/30/20 15:35 11:38 19:45 Creatinine Urine Protein 3+ H 3+ H Urine Glucose (UA) Urine Ketones ANJELICA M-Kyle Not observed COVID-19 (ELIAS) 06/02/20 07/18/20 07/18/20 06:13 01:10 02:41 Creatinine 1.4 H 1.5 H Urine Protein Urine Glucose (UA) 3+ H Urine Ketones Trace H ANJELICA M-Kyle COVID-19 (LEIAS) 07/18/20 07/18/20 08:01 11:33 Creatinine 1.4 H Urine Protein Urine Glucose (UA) Urine Ketones ANJELICA M-Kyle COVID-19 (ELIAS) Pending Current Medications Generic Name Dose Route Start Last Admin Trade Name Freq PRN Reason Stop Dose Admin Piperacillin Sod/Tazobactam 50 mls @ 100 mls/hr 07/18/20 10:00 Sod 3.375 gm/ Dextrose IVPB Q8H-IV FIDELINA Protocol Piperacillin Sod/Tazobactam 50 mls @ 100 mls/hr 07/18/20 10:00 07/18/20 09:45 Sod 3.375 gm/ Dextrose IVPB 07/19/20 02:29 100 mls/hr Q8H-IV FIDELINA Administration Protocol Insulin Aspart 0 units 07/18/20 07:00 07/18/20 12:19 Novolog Vial SQ Not Given ACHS FIDELINA Protocol Vancomycin HCl 1,000 mg 07/18/20 10:00 Vancomycin (Pre-Docked) IVPB DAILY FIDELINA Protocol Impression 1. CKD 2. dm 3. htn 4. hld 5. osteo 6. pvd 7. protienuria Plan - renal function at baseline - renal dose meds - avoid nsaids - podiatry/vascular follow up - monitor lytes - repeat labs in am
--- NOTE | 2020-07-18 18:22 | PN ---
Physical Exam: SUBJECTIVE: Patient seen and examined at bedside. Patient denies fever/chills, shortness of breath, pain, or bowel/bladder problems. He reports swelling in his feet with numbness in his toes. OBJECTIVE: Vital Signs Period Temp Pulse Resp BP Sys/[place]ilera Pulse Ox Last 24 Hr 98.3 F-98.6 F 74-87 17-20 134-149/77-89 99-100 GENERAL: The patient is awake, alert, and fully oriented, in no acute distress. HEAD: Normal with no signs of trauma. EYES: Extraocular movements intact. No ptosis. ENT: Ears normal, nares patent, oropharynx clear without exudates, moist mucous membranes. NECK: Trachea midline, full range of motion, supple. LUNGS: Breath sounds equal, clear to auscultation bilaterally, no wheezes, no crackles, no accessory muscle use. HEART: Regular rate and rhythm, S1, S2 without murmur, rub or gallop. ABDOMEN: Soft, nontender, nondistended, normoactive bowel sounds, no guarding, no rebound, no masses. EXTREMITIES: weak but palpable pulses bilaterally in feet, warm, well-perfused, mild edema bilaterally. Charcot feet appearance bilaterally. Right 1st and 2nd toe bandaged. Right 1st toes amputated. Left 1st toe with only half a toe nail. NEUROLOGICAL: Normal speech, gait not observed. Numbness in toes bilaterally and numbness in his feet on both the dorsal and plantar aspects. Sensation intact above the feet bilaterally and in the upper extremities bilaterally. +5/5 muscle strength with dorsiflexion and planarflexion of the feet bilaterally. PSYCH: Normal mood, normal affect. SKIN: Warm, dry, normal turgor. Laboratory Results - last 24 hr 07/18/20 07/18/20 07/18/20 01:10 01:10 01:10 WBC 9.5 RBC 3.51 L Hgb 10.2 L Hct 30.7 L MCV 87.5 MCH 29.1 MCHC 33.2 RDW 15.2 Plt Count 208 MPV 8.3 Absolute Neuts (auto) 6.6 Neutrophils % 69.2 Lymphocytes % 18.6 D Monocytes % 10.2 Eosinophils % 1.5 D Basophils % 0.5 D Nucleated RBC % 0 Retic Count PT with INR 14.30 H INR 1.21 H PTT (Actin FS) 38.2 H Sodium 138 Potassium 4.4 Chloride 106 Carbon Dioxide 22 Anion Gap 10 BUN 35.8 H Creatinine 1.5 H Est GFR (CKD-EPI)AfAm 59.88 Est GFR (CKD-EPI)NonAf 51.67 POC Glucometer Random Glucose 153 H Lactic Acid Calcium 8.7 Phosphorus Magnesium Iron Ferritin Total Bilirubin 0.2 AST 15 ALT 17 Alkaline Phosphatase 93 Creatine Kinase 95 Troponin I < 0.02 Total Protein 6.9 Albumin 3.1 L Urine Color Urine Appearance Urine pH Ur Specific Jean Urine Protein Urine Glucose (UA) Urine Ketones Urine Blood Urine Nitrite Urine Bilirubin Urine Urobilinogen Ur Leukocyte Esterase 07/18/20 07/18/20 07/18/20 01:10 02:41 08:10 WBC RBC Hgb Hct MCV MCH MCHC RDW Plt Count MPV Absolute Neuts (auto) Neutrophils % Lymphocytes % Monocytes % Eosinophils % Basophils % Nucleated RBC % Retic Count PT with INR INR PTT (Actin FS) Sodium Potassium Chloride Carbon Dioxide Anion Gap BUN Creatinine Est GFR (CKD-EPI)AfAm Est GFR (CKD-EPI)NonAf POC Glucometer 155 Random Glucose Lactic Acid 0.9 Calcium Phosphorus Magnesium Iron Ferritin Total Bilirubin AST ALT Alkaline Phosphatase Creatine Kinase Troponin I Total Protein Albumin Urine Color Yellow Urine Appearance Clear Urine pH 5.0 Ur Specific Jean 1.005 L Urine Protein N Urine Glucose (UA) 3+ H Urine Ketones Trace H Urine Blood N Urine Nitrite Negative Urine Bilirubin Negative Urine Urobilinogen 0.2 Ur Leukocyte Esterase N 07/18/20 07/18/20 07/18/20 11:33 11:33 11:33 WBC 7.7 RBC 3.66 L Hgb 10.6 L Hct 31.9 L MCV 87.1 MCH 28.9 MCHC 33.1 RDW 15.3 Plt Count 205 MPV 8.3 Absolute Neuts (auto) 5.6 Neutrophils % 72.1 Lymphocytes % 15.7 Monocytes % 10.1 Eosinophils % 1.6 Basophils % 0.5 Nucleated RBC % 0 Retic Count 1.77 H PT with INR INR PTT (Actin FS) Sodium 137 Potassium 4.4 Chloride 104 Carbon Dioxide 22 Anion Gap 10 BUN 32.6 H Creatinine 1.4 H Est GFR (CKD-EPI)AfAm 65.09 Est GFR (CKD-EPI)NonAf 56.16 POC Glucometer Random Glucose 194 H Lactic Acid Calcium 8.7 Phosphorus 4.4 Magnesium 2.0 Iron 29 L Ferritin 62.3 Total Bilirubin 0.4 AST 10 L ALT 18 Alkaline Phosphatase 90 Creatine Kinase Troponin I Total Protein 7.0 Albumin 3.1 L Urine Color Urine Appearance Urine pH Ur Specific Jean Urine Protein Urine Glucose (UA) Urine Ketones Urine Blood Urine Nitrite Urine Bilirubin Urine Urobilinogen Ur Leukocyte Esterase 07/18/20 07/18/20 11:54 16:50 WBC RBC Hgb Hct MCV MCH MCHC RDW Plt Count MPV Absolute Neuts (auto) Neutrophils % Lymphocytes % Monocytes % Eosinophils % Basophils % Nucleated RBC % Retic Count PT with INR INR PTT (Actin FS) Sodium Potassium Chloride Carbon Dioxide Anion Gap BUN Creatinine Est GFR (CKD-EPI)AfAm Est GFR (CKD-EPI)NonAf POC Glucometer 189 130 Random Glucose Lactic Acid Calcium Phosphorus Magnesium Iron Ferritin Total Bilirubin AST ALT Alkaline Phosphatase Creatine Kinase Troponin I Total Protein Albumin Urine Color Urine Appearance Urine pH Ur Specific Jean Urine Protein Urine Glucose (UA) Urine Ketones Urine Blood Urine Nitrite Urine Bilirubin Urine Urobilinogen Ur Leukocyte Esterase Active Medications Generic Name Dose Route Start Last Admin Trade Name Freq PRN Reason Stop Dose Admin Heparin Sodium (Porcine) 5,000 unit 07/18/20 22:00 Heparin - SQ TID [facility] Piperacillin Sod/Tazobactam 50 mls @ 100 mls/hr 07/18/20 10:00 Sod 3.375 gm/ Dextrose IVPB Q8H-IV [facility] Protocol Piperacillin Sod/Tazobactam 50 mls @ 100 mls/hr 07/18/20 10:00 07/18/20 09:45 Sod 3.375 gm/ Dextrose IVPB 07/19/20 02:29 100 mls/hr Q8H-IV [facility] Administration Protocol Piperacillin Sod/Tazobactam 50 mls @ 100 mls/hr 07/18/20 18:00 Sod 3.375 gm/ Dextrose IVPB Q8H-IV [facility] Protocol Insulin Aspart 0 units 07/18/20 07:00 07/18/20 16:51 Novolog Vial SQ Not Given ACHS [facility] Protocol Vancomycin HCl 1,000 mg 07/18/20 10:00 Vancomycin (Pre-Docked) IVPB DAILY [facility] Protocol ASSESSMENT/PLAN: 54 year old male patient with past medical history that includes HTN, HLD, DM, PVD, right big toe amputation, right 2nd toe partial amputation, and charcot joints, who presented to the emergency room with a right 2nd toe foul smelling wound for 2 days with erythema and with a right 3rd toe ulceration with swelling and erythema. 1. Infected toe wound / cellulitis - Lower Extremity MRI done - Amputation if MRI shows osteomyelitis - Zosyn and Vanc 2. CKD vs ROLAND - Creatinine elevated at 1.4 - Unknown baseline Creatinine - eGFR 56 - Monitoring Creatinine 3. Normocytic Anemia - Hgb 10.6 - Iron Panel ordered 4. DM - A1C 6.0% - Novolog # FEN - Monitoring Electrolytes, low sodium Diabetic Diet DVT PPx - Heparin SQ Visit type - Emergency Visit Emergency Visit: Yes ED Registration Date: 07/18/20 Care time: The patient presented to the Emergency Department on the above date and was hospitalized for further evaluation of their emergent condition. - New Patient This patient is new to me today: Yes Date on this admission: 07/18/20 - Critical Care Critical Care patient: No - Discharge Referral Referred to [facility] No ATTENDING PHYSICIAN STATEMENT I saw and evaluated the patient. I reviewed the resident's note and discussed the case with the resident. I agree with the resident's findings and plan as documented. SUBJECTIVE: OBJECTIVE: ASSESSMENT AND PLAN:
[2020-07-18] MEDS: HEPARIN NA (PORCINE) 5,000 UNITS/ML 1ML VIAL SQ SCH (22:31)
[2020-07-19] MEDS: PIPERACILLIN/TAZOB 3.375 GM 3.375 GM in DEXTROSE 5%-WATER - 50 ML IVPB SCH ×3 (02:31→18:15)
[2020-07-19] MEDS: HEPARIN NA (PORCINE) 5,000 UNITS/ML 1ML VIAL SQ SCH ×2 (06:43→13:17)
[2020-07-19] MEDS: INSULIN SLIDING SCALE (NOVOLOG) 1 VIAL SQ SCH ×4 (06:44→22:08)
[2020-07-19] MEDS: VANCOMYCIN 1 GM in D5W (PRE-DOCKED) 1,000 MG/250 ML IVPB SCH (11:11)
[2020-07-19] MEDS ORDERED: CLOPIDOGREL BISULFATE 75 MG TABLET (FP) PO SCH (11:14)
[2020-07-19] MEDS: GABAPENTIN 300 MG CAPSULE PO SCH ×2 (11:57→22:08)
--- NOTE | 2020-07-19 12:00 | PN ---
Progress Note, Physician History of Present Illness: feels better awaiting mri read - Current Medication List Current Medications: Active Medications Clopidogrel Bisulfate (Plavix -) 75 mg PO DAILY [facility] Last Admin: 07/19/20 11:56 Dose: 75 mg Documented by: Gabapentin (Neurontin -) 300 mg PO BID [facility] Last Admin: 07/19/20 11:57 Dose: 300 mg Documented by: Heparin Sodium (Porcine) (Heparin -) 5,000 unit SQ TID [facility] Last Admin: 07/19/20 06:43 Dose: 5,000 unit Documented by: Piperacillin Sod/Tazobactam (Sod 3.375 gm/ Dextrose) 50 mls @ 100 mls/hr IVPB Q8H-IV [facility]; Protocol Last Admin: 07/19/20 10:01 Dose: 100 mls/hr Documented by: Insulin Aspart (Novolog Vial Sliding Scale -) 1 vial SQ ACHS [facility]; Protocol Last Admin: 07/19/20 06:44 Dose: Not Given Documented by: - Objective Vital Signs: Vital Signs Temperature 98.2 F 07/19/20 09:45 Pulse Rate 74 07/19/20 09:45 Respiratory Rate 18 07/19/20 09:45 Blood Pressure 148/74 07/19/20 09:45 O2 Sat by Pulse Oximetry (%) 97 07/19/20 09:45 Constitutional: Yes: No Distress, Calm, Obese Cardiovascular: Yes: S1, S2 Respiratory: Yes: Regular, CTA Bilaterally Gastrointestinal: Yes: Normal Bowel Sounds, Soft Genitourinary: Yes: WNL Musculoskeletal: Yes: Other Extremities: Yes: WNL Integumentary: Yes: Other Wound/Incision: Yes: Dressing Dry and Intact Neurological: Yes: Alert, Oriented Psychiatric: Yes: Alert, Oriented Labs: CBC, BMP 07/18/20 11:33 07/18/20 11:33 INR, PTT INR 1.21 (0.83-1.09) H 07/18/20 01:10 Assessment/Plan Problem List - Problems (1) Diabetic foot infection Code(s): E11.628 - TYPE 2 DIABETES MELLITUS WITH OTHER SKIN COMPLICATIONS; L08.9 - LOCAL INFECTION OF THE SKIN AND SUBCUTANEOUS TISSUE, UNSP (2) CKD (chronic kidney disease) Code(s): N18.9 - CHRONIC KIDNEY DISEASE, UNSPECIFIED Qualifiers: Chronic kidney disease stage: stage 2 (mild) Qualified Code(s): N18.2 - Chronic kidney disease, stage 2 (mild) (3) HTN (hypertension) Code(s): I10 - ESSENTIAL (PRIMARY) HYPERTENSION 4 pvd plan continue abx zosyn await for mri read wound care will d/w podiatry team
[2020-07-19] MEDS ORDERED: VANCOMYCIN 1 GRAM (PRE-DOCKED) 1,000 MG/250 ML BAG IVPB ONE (12:07)
--- NOTE | 2020-07-19 13:17 | PN ---
Progress Note (short form) - Note Progress Note: Podiatry F/U: Seen/evaluated at bedside NAD. Pain is controlled. Denies F/V/N/C/SOB/CP. AFebrile. MRI obtained yesterday. REVA: R foot: diabetic ulcer second digit amputation stump with fibrotic base, eschar present distally, mild seropurulent drainage. There is probing to bone. There is moderate periwound erythema. There is no soft tissue crepitus, no streaking ascending cellulitis. There is a superficial eschar medial third digit, dry, no signs of infection. MRI: compatible with osteomyelitis right second digit amputation stump Blood Cx: GPC clusters 1/2 bottles Imp: 54 year old diabetic male with right second digit amputation stump diabetic ulcer and osteomyelitis 1. IV abx per infectious diseases 2. F/u repeat blood cultures 3. Plan for right second digit amputation, second metatarsal head resection tomorrow am. NPO midnight, order placed. 4. Will follow Karrie Hawkins DPM
--- NOTE | 2020-07-19 14:13 | PN ---
Progress Note, Physician History of Present Illness: Pt seen and examined at bedside. He is awake and alert. he denies shortness of breath. - Current Medication List Current Medications: Active Medications Clopidogrel Bisulfate (Plavix -) 75 mg PO DAILY [facility] Last Admin: 07/19/20 11:56 Dose: 75 mg Documented by: Gabapentin (Neurontin -) 300 mg PO BID [facility] Last Admin: 07/19/20 11:57 Dose: 300 mg Documented by: Heparin Sodium (Porcine) (Heparin -) 5,000 unit SQ TID [facility] Last Admin: 07/19/20 13:17 Dose: 5,000 unit Documented by: Piperacillin Sod/Tazobactam (Sod 3.375 gm/ Dextrose) 50 mls @ 100 mls/hr IVPB Q8H-IV [facility]; Protocol Last Admin: 07/19/20 10:01 Dose: 100 mls/hr Documented by: Insulin Aspart (Novolog Vial Sliding Scale -) 1 vial SQ ACHS [facility]; Protocol Last Admin: 07/19/20 12:04 Dose: Not Given Documented by: - Objective Vital Signs: Vital Signs Temperature 98.1 F 07/19/20 13:59 Pulse Rate 85 07/19/20 13:59 Respiratory Rate 18 07/19/20 13:59 Blood Pressure 118/77 07/19/20 13:59 O2 Sat by Pulse Oximetry (%) 99 07/19/20 13:59 Constitutional: Yes: Calm Eyes: Yes: Conjunctiva Clear HENT: Yes: Atraumatic Neck: Yes: Supple Cardiovascular: Yes: S1, S2 Respiratory: Yes: CTA Bilaterally Gastrointestinal: Yes: Soft Genitourinary: Yes: WNL Musculoskeletal: Yes: WNL Edema: No Wound/Incision: Yes: Dressing Dry and Intact Neurological: Yes: Oriented Psychiatric: Yes: Oriented Labs: CBC, BMP 07/18/20 11:33 07/18/20 11:33 INR, PTT INR 1.21 (0.83-1.09) H 07/18/20 01:10 Problem List - Problems (1) Diabetic foot infection Code(s): E11.628 - TYPE 2 DIABETES MELLITUS WITH OTHER SKIN COMPLICATIONS; L08.9 - LOCAL INFECTION OF THE SKIN AND SUBCUTANEOUS TISSUE, UNSP (2) CKD (chronic kidney disease) Code(s): N18.9 - CHRONIC KIDNEY DISEASE, UNSPECIFIED Qualifiers: Chronic kidney disease stage: stage 2 (mild) Qualified Code(s): N18.2 - Chronic kidney disease, stage 2 (mild) (3) HTN (hypertension) Code(s): I10 - ESSENTIAL (PRIMARY) HYPERTENSION Assessment/Plan Current Medications Generic Name Dose Route Start Last Admin Trade Name Freq PRN Reason Stop Dose Admin Clopidogrel Bisulfate 75 mg 07/19/20 11:14 07/19/20 11:56 Plavix - PO 75 mg DAILY [facility] Administration Gabapentin 300 mg 07/19/20 11:15 07/19/20 11:57 Neurontin - PO 300 mg BID [facility]IDELINA Administration Heparin Sodium (Porcine) 5,000 unit 07/18/20 22:00 07/19/20 13:17 Heparin - SQ 5,000 unit TID [facility]IDELINA Administration Piperacillin Sod/Tazobactam 50 mls @ 100 mls/hr 07/19/20 02:00 07/19/20 10:01 Sod 3.375 gm/ Dextrose IVPB 100 mls/hr Q8H-IV [facility] Administration Protocol Insulin Aspart 1 vial 07/19/20 01:09 07/19/20 12:04 Novolog Vial Sliding Scale - SQ Not Given ACHS [facility] Protocol Impression 1. CKD 2. dm 3. htn 4. hld 5. osteo 6. pvd 7. protienuria Plan - monitor renal function - repeat labs in am - wound care - avoid nsaids - podiatry/vascular follow up
--- NOTE | 2020-07-19 15:55 | PN ---
Physical Exam: SUBJECTIVE: Patient seen and examined at bedside. The patient denies fever/chills, shortness of breath, or bowel/bladder problems. He has numbness only in his toes, which he says is sometimes totally numb but other times only partially numb. Wound culture of the 2nd toe performed. MRI found osteomyelitis, so the plan is likely for amputation tomorrow. The patient's PCP was called and asked why the patient is on Xarelto. The PCP answered that the patient was put on Xarelto last year by the patient's vascular doctor, but that he doesn't know exactly why. OBJECTIVE: Vital Signs Period Temp Pulse Resp BP Sys/[place] Pulse Ox Last 24 Hr 97.7 F-98.6 F 71-85 17-20 118-148/62-77 95-99 GENERAL: The patient is awake, alert, and fully oriented, in no acute distress. HEAD: Normal with no signs of trauma. EYES: Extraocular movements intact. No ptosis. ENT: Ears normal, nares patent, oropharynx clear without exudates, moist mucous membranes. NECK: Trachea midline, full range of motion, supple. LUNGS: Breath sounds equal, clear to auscultation bilaterally, no wheezes, no crackles, no accessory muscle use. HEART: Regular rate and rhythm, S1, S2 without murmur, rub or gallop. ABDOMEN: Soft, nontender, high BMI, normoactive bowel sounds, no guarding, no rebound, no masses. EXTREMITIES: Weak but palpable pulses bilaterally in feet, warm, well-perfused, mild edema bilaterally. Charcot feet appearance bilaterally. Right 1st and 2nd toe bandaged. Right 1st toes amputated. Right 2nd toe with an erythematous wound draining a mild amount of pus. Left 1st toe with only half a toe nail. NEUROLOGICAL: Normal speech, gait not observed. Numbness in toes bilaterally and numbness in his feet on both the dorsal and plantar aspects. Sensation intact above the feet bilaterally and in the upper extremities bilaterally. +5/5 muscle strength with dorsiflexion and planarflexion of the feet bilaterally. PSYCH: Normal mood, normal affect. SKIN: Warm, dry, normal turgor. Laboratory Results - last 24 hr 07/18/20 07/18/20 07/18/20 08:01 16:50 22:26 POC Glucometer 130 182 COVID-19 (ELIAS) Not detected 07/19/20 07/19/20 06:17 11:52 POC Glucometer 115 132 COVID-19 (ELIAS) Active Medications Generic Name Dose Route Start Last Admin Trade Name Edwin PRN Reason Stop Dose Admin Clopidogrel Bisulfate 75 mg 07/19/20 11:14 07/19/20 11:56 Plavix - PO 75 mg DAILY [facility]INA Administration Gabapentin 300 mg 07/19/20 11:15 07/19/20 11:57 Neurontin - PO 300 mg BID [facility] Administration Heparin Sodium (Porcine) 5,000 unit 07/18/20 22:00 07/19/20 13:17 Heparin - SQ 5,000 unit TID FIDELINA Administration Piperacillin Sod/Tazobactam 50 mls @ 100 mls/hr 07/19/20 02:00 07/19/20 10:01 Sod 3.375 gm/ Dextrose IVPB 100 mls/hr Q8H-IV [facility]INA Administration Protocol Insulin Aspart 1 vial 07/19/20 01:09 07/19/20 12:04 Novolog Vial Sliding Scale - SQ Not Given ACHS FIDELINA Protocol ASSESSMENT/PLAN: 54 year old male patient with past medical history that includes HTN, HLD, DM, PVD with stent placement 1x in leg and 1x in stomach per patient, right big toe amputation, right 2nd toe partial amputation, and charcot joints, who presented to the emergency room with a right 2nd toe foul smelling wound for 2 days with erythema and with a right 3rd toe ulceration with swelling and erythema. 1. Infected toe wound / cellulitis - Lower Extremity MRI done - Amputation since MRI shows osteomyelitis - Zosyn and Vanc 2. Normocytic Anemia - Hgb 10.6 yesterday - Iron 29 (Low) - Ferritin 62 (WNL) - MCV 87 (WNL) 3. DM - A1C 6.0% - Novolog # FEN - Monitoring Electrolytes, low sodium Diabetic Diet DVT PPx - Heparin and Plavix on hold for surgery tomorrow Dispo - Amputation tomorrow Visit type - Emergency Visit Emergency Visit: Yes ED Registration Date: 07/18/20 Care time: The patient presented to the Emergency Department on the above date and was hospitalized for further evaluation of their emergent condition. - New Patient This patient is new to me today: No - Critical Care Critical Care patient: No - Discharge Referral Referred to [facility] No ATTENDING PHYSICIAN STATEMENT I saw and evaluated the patient. I reviewed the resident's note and discussed the case with the resident. I agree with the resident's findings and plan as documented. SUBJECTIVE: OBJECTIVE: ASSESSMENT AND PLAN:
[2020-07-19] MEDS ORDERED: PIPERACILLIN/TAZOBACTAM 3.375 GM VIAL IVPB ONE (17:00)
[2020-07-19] MEDS ORDERED: DEXTROSE 5%-WATER - 50 ML IVPB ONE (17:00)
--- NOTE | 2020-07-19 18:58 | PN ---
Teaching Attending Note Name of Resident: Colin Renteria ATTENDING PHYSICIAN STATEMENT I saw and evaluated the patient. I reviewed the resident's note and discussed the case with the resident. I agree with the resident's findings and plan as documented. SUBJECTIVE: seen in am No fever or chills. no pain. no N/V. no SOB . he does not know why he is on xarelto OBJECTIVE: NAd , awake, alert, flat affect CV: RRR, no MRG Lungs: CTAB Ext : No edema or erythema on legs . R second digit with s/p amputation of last two phalanges . ulcer with a scab is seen. small amount of thick yellowish discharge expressed ( taken fro cx ) . small wound with scab on tip of third toe but no discharge ASSESSMENT AND PLAN: 54 y/o man with h/o T2DM, PVD, osteomyelitis distal phalanx,right second digit partial amputation, PVd s/p stents presents to the ER with ulcer and drainage form R 2nd toe 1- OM of proximal phalanx of R 2nd toe. 2- H/o DM 3- PVD 4- G+ cocci in blood. 5- CKD plan : - MRI and CT reviewed. - CX reviewed . G+ cocci in blood in 1 set - repeat cx in am - cont vanco and zosyn - amputation in am - cont plavix . needed for his PVD and stents. - cont to hold xarelto - unknown reason for xarelto . he denies DVT/PE/ A fib. PCP office called and no call back was returned - resume neurontin - hold heparin for procedure - he is in no acute CHF, Arrhythmias, or ACS. 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 EKG with old inferior ischemia. no murmurs are heard on exam and echo is not indicated before procedure . will be at moderate risk for this intermediate risk procedure
[2020-07-19] MEDS ORDERED: INSULIN (NOVOLOG) ASPART 100 UNITS/ML 10ML VIAL ONE (21:36)
[2020-07-19] MEDS ORDERED: ATORVASTATIN CA 20 MG TABLET (FP) PO SCH (22:00)
[2020-07-19] MEDS: MUPIROCIN 2% TOPICAL OINTMENT 22 GM TUBE TP SCH (22:09)
[2020-07-19] MEDS ORDERED: PT OWN MED DRAWER 7, Y5N ONE (22:23)
[2020-07-20] MEDS ORDERED: PIPERACILLIN/TAZOBACTAM 3.375 GM VIAL IVPB ONE ×2 (01:59→17:25)
[2020-07-20] MEDS ORDERED: DEXTROSE 5%-WATER - 50 ML IVPB ONE ×2 (02:00→17:25)
[2020-07-20] MEDS: PIPERACILLIN/TAZOB 3.375 GM 3.375 GM in DEXTROSE 5%-WATER - 50 ML IVPB SCH ×3 (02:15→17:33)
[2020-07-20] MEDS: INSULIN SLIDING SCALE (NOVOLOG) 1 VIAL SQ SCH ×4 (06:38→22:32)
[2020-07-20 07:51] LABS: HEMATOCRIT 31.2 % (35.4-49); HEMOGLOBIN 10.4 GM/dL (11.7-16.9); MCHC 33.4 g/dl (32.0-35.9); MEAN CELL VOLUME 86.9 fl (80-96); MEAN PLT VOLUME 8.3 fl (7.5-11.1); PLATELET COUNT 227 K/MM3 (134-434); RBC 3.59 M/mm3 (4.00-5.60); RDW 14.9 % (11.9-15.9); WHITE BLOOD COUNT 7.2 K/mm3 (4.0-10.0)
[2020-07-20] MEDS ORDERED: VANCOMYCIN 1 GRAM (PRE-DOCKED) 1,000 MG/250 ML BAG IVPB ONE (08:08)
[2020-07-20 08:20] LABS: BLOOD UREA NITROGEN 25.3 mg/dL (7-18); CALCIUM 8.4 mg/dL (8.5-10.1); CREATININE 1.4 mg/dL (0.55-1.3); POTASSIUM 4.2 mmol/L (3.5-5.1)
[2020-07-20] MEDS ORDERED: LISINOPRIL 5 MG TABLET (FP) PO SCH (10:00)
[2020-07-20] MEDS ORDERED: CHOLECALCIFEROL (VIT D3) 1,000 UNIT (25 MCG) TABLET PO SCH (10:00)
[2020-07-20] MEDS ORDERED: VITAMIN D2 50000 UNIT PO SCH (10:00)
[2020-07-20] MEDS ORDERED: metoPROLOL SUCCINATE 25 MG TAB.SR.24H (FP) PO SCH (10:00)
[2020-07-20] MEDS ORDERED: VITAMIN D PO SCH (10:00)
[2020-07-20] MEDS ORDERED: LIDOCAINE HCL 2% (20ML MULTI-DOSE VIAL) ONE (10:17)
--- NOTE | 2020-07-20 10:42 | PN ---
Progress Note (short form) - Note Progress Note: Podiatry Preoperative Note: Patient seen and evaluated in [facility], NAD. The risks, benefits and alternatives to surgery discussed at length with the patient. He is amenable to planned procedure. Will plan for right second digit amputation with second metatarsal head resection for osteomyelitis, utilizing MAC and local anesthetic. Karrie Hawkins DPM
[2020-07-20] MEDS ORDERED: MIDAZOLAM HCL 2 MG/2 ML SINGLE DOSE VIAL ONE ×3 (10:51→11:29)
[2020-07-20] MEDS ORDERED: LIDOCAINE HCL 2% (50ML VIAL) SQ ONE (11:00)
[2020-07-20] MEDS ORDERED: BACITRACIN 50,000 UNITS VIAL NR ONE (11:20)
--- NOTE | 2020-07-20 11:44 | PN ---
Progress Note, Physician History of Present Illness: Pt seen and examined at bedside. He is going for debridement today. - Current Medication List Current Medications: Active Medications Atorvastatin Calcium (Lipitor -) 20 mg PO HS [facility] Last Admin: 07/19/20 22:08 Dose: 20 mg Documented by: Cholecalciferol (Vitamin D3 -) 1,000 unit PO DAILY [facility] Gabapentin (Neurontin -) 300 mg PO BID [facility] Last Admin: 07/19/20 22:08 Dose: 300 mg Documented by: Heparin Sodium (Porcine) (Heparin -) 5,000 unit SQ TID [facility] Last Admin: 07/19/20 13:17 Dose: 5,000 unit Documented by: Piperacillin Sod/Tazobactam (Sod 3.375 gm/ Dextrose) 50 mls @ 100 mls/hr IVPB Q8H-IV [facility]; Protocol Last Admin: 07/20/20 02:15 Dose: 100 mls/hr Documented by: Insulin Aspart (Novolog Vial Sliding Scale -) 1 vial SQ ACHS [facility]; Protocol Last Admin: 07/20/20 06:38 Dose: Not Given Documented by: Lisinopril (Prinivil) 5 mg PO DAILY [facility] Metoprolol Succinate (Toprol Xl -) 25 mg PO DAILY [facility] Mupirocin (Bactroban 2% Ointment -) 1 applic TP BID [facility] Last Admin: 07/19/20 22:09 Dose: 1 applic Documented by: - Objective Vital Signs: Vital Signs Temperature 98 F 07/20/20 10:06 Pulse Rate 83 07/20/20 10:06 Respiratory Rate 18 07/20/20 10:06 Blood Pressure 125/75 07/20/20 10:06 O2 Sat by Pulse Oximetry (%) 98 07/20/20 10:06 Constitutional: Yes: Calm Eyes: Yes: Conjunctiva Clear HENT: Yes: Atraumatic Neck: Yes: Supple Cardiovascular: Yes: S1, S2 Respiratory: Yes: CTA Bilaterally Gastrointestinal: Yes: Normal Bowel Sounds, Soft Genitourinary: Yes: WNL Edema: No Wound/Incision: Yes: Dressing Dry and Intact Neurological: Yes: Oriented Labs: CBC, BMP 07/20/20 07:20 07/20/20 07:20 INR, PTT INR 1.21 (0.83-1.09) H 07/18/20 01:10 Problem List - Problems (1) Diabetic foot infection Code(s): E11.628 - TYPE 2 DIABETES MELLITUS WITH OTHER SKIN COMPLICATIONS; L08.9 - LOCAL INFECTION OF THE SKIN AND SUBCUTANEOUS TISSUE, UNSP (2) CKD (chronic kidney disease) Code(s): N18.9 - CHRONIC KIDNEY DISEASE, UNSPECIFIED Qualifiers: Chronic kidney disease stage: stage 2 (mild) Qualified Code(s): N18.2 - Chronic kidney disease, stage 2 (mild) (3) HTN (hypertension) Code(s): I10 - ESSENTIAL (PRIMARY) HYPERTENSION Assessment/Plan Current Medications Generic Name Dose Route Start Last Admin Trade Name Freq PRN Reason Stop Dose Admin Atorvastatin Calcium 20 mg 07/19/20 22:00 07/19/20 22:08 Lipitor - PO 20 mg HS [facility] Administration Cholecalciferol 1,000 unit 07/20/20 10:00 Vitamin D3 - PO DAILY [facility] Gabapentin 300 mg 07/19/20 11:15 07/19/20 22:08 Neurontin - PO 300 mg BID [facility] Administration Heparin Sodium (Porcine) 5,000 unit 07/18/20 22:00 07/19/20 13:17 Heparin - SQ 5,000 unit TID [facility] Administration Piperacillin Sod/Tazobactam 50 mls @ 100 mls/hr 07/19/20 02:00 07/20/20 02:15 Sod 3.375 gm/ Dextrose IVPB 100 mls/hr Q8H-IV [facility] Administration Protocol Insulin Aspart 1 vial 07/19/20 01:09 07/20/20 06:38 Novolog Vial Sliding Scale - SQ Not Given ACHS [facility] Protocol Lisinopril 5 mg 07/20/20 10:00 Prinivil PO DAILY [facility] Metoprolol Succinate 25 mg 07/20/20 10:00 Toprol Xl - PO DAILY [facility] Mupirocin 1 applic 07/19/20 22:00 07/19/20 22:09 Bactroban 2% Ointment - TP 1 applic BID [facility] Administration Impression 1. CKD 2. dm 3. htn 4. hld 5. osteo 6. pvd 7. protienuria Plan - renal function stable - avoid intra-op hypotension - repeat labs in am - wound care - avoid nsaids - podiatry/vascular follow up
--- NOTE | 2020-07-20 11:47 | OP ---
Operative Note - Note: Operative Date: 07/20/20 Pre-Operative Diagnosis: right second digit osteomyelitis, diabetic foot infection Operation: right second digit amputation; right second metatarsal head resection Post-Operative Diagnosis: Same as Pre-op Surgeon: Eliot Hawkins Anesthesia: Local, MAC Specimens Removed: right second digit; right second metatarsal proximal bone Estimated Blood Loss (mls): 15 Operative Report Dictated: Yes
[2020-07-20] MEDS ORDERED: oxyCODONE HCL 5 MG TABLET PO PRN ×3 (11:49→11:52)
[2020-07-20] MEDS ORDERED: PROMETHAZINE HCL 25 MG/1 ML VIAL IVPB PRN (11:52)
[2020-07-20] MEDS ORDERED: ONDANSETRON 4 MG/2 ML VIAL IVPUSH PRN (11:52)
--- NOTE | 2020-07-20 11:53 | PN ---
Progress Note, Physician History of Present Illness: stable no new issues for or - Current Medication List Current Medications: Active Medications Atorvastatin Calcium (Lipitor -) 20 mg PO HS COUNT INCLUDES [facility] Last Admin: 07/19/20 22:08 Dose: 20 mg Documented by: Cholecalciferol (Vitamin D3 -) 1,000 unit PO DAILY COUNT INCLUDES [facility] Fentanyl (Sublimaze Injection -) 50 mcg IVPUSH [id number] PRN PRN Reason: PAIN-PACU ORDER X 4 DOSES ONLY Gabapentin (Neurontin -) 300 mg PO BID COUNT INCLUDES [facility] Last Admin: 07/19/20 22:08 Dose: 300 mg Documented by: Heparin Sodium (Porcine) (Heparin -) 5,000 unit SQ TID COUNT INCLUDES [facility] Last Admin: 07/19/20 13:17 Dose: 5,000 unit Documented by: Piperacillin Sod/Tazobactam (Sod 3.375 gm/ Dextrose) 50 mls @ 100 mls/hr IVPB Q8H-IV COUNT INCLUDES [facility]; Protocol Last Admin: 07/20/20 02:15 Dose: 100 mls/hr Documented by: Insulin Aspart (Novolog Vial Sliding Scale -) 1 vial SQ ACHS COUNT INCLUDES [facility]; Protocol Last Admin: 07/20/20 06:38 Dose: Not Given Documented by: Lisinopril (Prinivil) 5 mg PO DAILY COUNT INCLUDES [facility] Metoprolol Succinate (Toprol Xl -) 25 mg PO DAILY COUNT INCLUDES [facility] Mupirocin (Bactroban 2% Ointment -) 1 applic TP BID COUNT INCLUDES [facility] Last Admin: 07/19/20 22:09 Dose: 1 applic Documented by: Ondansetron HCl (Zofran Injection) 4 mg IVPUSH Q6H PRN PRN Reason: NAUSEA AND/OR VOMITING Oxycodone HCl (Roxicodone -) 10 mg PO Q4H PRN PRN Reason: PAIN LEVEL 6-10 Stop: 07/21/20 11:51 Oxycodone HCl (Roxicodone -) 5 mg PO Q4H PRN PRN Reason: PAIN LEVEL 1-5 Stop: 07/21/20 11:48 Promethazine HCl (Phenergan Injection -) 12.5 mg IVPUSH Q6H PRN PRN Reason: NAUSEA-FOR RESCUE AFTER 15 MIN - Objective Vital Signs: Vital Signs Temperature 98 F 07/20/20 10:06 Pulse Rate 83 07/20/20 10:06 Respiratory Rate 18 07/20/20 10:06 Blood Pressure 125/75 07/20/20 10:06 O2 Sat by Pulse Oximetry (%) 98 07/20/20 10:06 Constitutional: Yes: No Distress, Calm Cardiovascular: Yes: S1, S2 Respiratory: Yes: Regular, CTA Bilaterally Gastrointestinal: Yes: Normal Bowel Sounds, Soft Musculoskeletal: Yes: WNL Extremities: Yes: Other Wound/Incision: Yes: Dressing Dry and Intact Neurological: Yes: Alert, Oriented Labs: CBC, BMP 07/20/20 07:20 07/20/20 07:20 INR, PTT INR 1.21 (0.83-1.09) H 07/18/20 01:10 Assessment/Plan Problem List - Problems (1) Diabetic foot infection Code(s): E11.628 - TYPE 2 DIABETES MELLITUS WITH OTHER SKIN COMPLICATIONS; L08.9 - LOCAL INFECTION OF THE SKIN AND SUBCUTANEOUS TISSUE, UNSP (2) CKD (chronic kidney disease) Code(s): N18.9 - CHRONIC KIDNEY DISEASE, UNSPECIFIED Qualifiers: Chronic kidney disease stage: stage 2 (mild) Qualified Code(s): N18.2 - Chronic kidney disease, stage 2 (mild) (3) HTN (hypertension) Code(s): I10 - ESSENTIAL (PRIMARY) HYPERTENSION 4 pvd 5 osteo of the foot plan ct abx await for cx reports wound care rest as per podiatry
--- NOTE | 2020-07-20 12:19 | OP ---
DATE OF OPERATION: 07/20/2020 PREOPERATIVE DIAGNOSIS: Right 2nd digit osteomyelitis. POSTOPERATIVE DIAGNOSIS: Right 2nd digit osteomyelitis. PROCEDURE: Right 2nd digit amputation, right 2nd metatarsal head resection. SURGEON: Eliot Hawkins DPM PAYROLL ADMINISTRATOR: None. ANESTHESIA: IV sedation with local. HEMOSTASIS: Surgical dissection. ESTIMATED BLOOD LOSS: 15 mL. PATHOLOGY: Right 2nd toe, right 2nd metatarsal head proximal bone. DESCRIPTION OF PROCEDURE: The patient was brought to the operating room and placed on the operating table in the supine position. Following the induction of IV sedation, local anesthesia was achieved using 10 mL of 2% lidocaine plain. The right foot was scrubbed, prepped, and draped in the usual sterile fashion. Attention was directed to the right 2nd digit where there was a partial amputation stump diabetic ulcer down to bone with surrounding erythema visualized and appreciated. I began by performing a 4.0-cm linear longitudinal incision over the 2nd metatarsophalangeal joint. The incision was carried distally in a tennis racquet fashion to circumscribe the 2nd toe. The incision was deepened using sharp and blunt dissection, taking care to retract vital neural and vascular structures. All bleeders were cauterized and ligated as necessary. Next, I noted the proximal phalanx stump from prior surgery was sclerotic and fragmented, which would be indicative of an osteomyelitis. The remaining 2nd digit was disarticulated at the level of the metatarsophalangeal joint. Once all deep capsular and ligamentous attachments were released, the 2nd proximal phalanx was removed in its entirety and sent to pathology for analysis. Next, I began a linear capsular incision over the 2nd metatarsal head. This bone appeared viable. A sagittal saw was used to resect the cartilaginous covering from the 2nd metatarsal head. This was removed and sectioned for both bone culture and bone biopsy as proximal bone. A wound culture was then obtained. Surgical site was copiously irrigated with sterile saline mixed with Bacitracin. The skin was loosely coapted using 3-0 nylon in a simple interrupted suture fashion. Following conclusion of the procedure, the surgical site was covered with Xeroform, and a sterile compressive dressing was applied to the right foot consisting of sterile gauze, Kerlix, and an Hu wrap. The patient tolerated the procedure and anesthesia well without complications. He was transferred from the operating room to recovery unit with vital signs stable and neurovasculature intact to the right foot. MADHU ALEJANDRO/[id number] cc: [facility] Podiatry
[2020-07-20] MEDS: MUPIROCIN 2% TOPICAL OINTMENT 22 GM TUBE TP SCH (12:57)
[2020-07-20] MEDS: GABAPENTIN 300 MG CAPSULE PO SCH ×2 (12:57→22:31)
--- NOTE | 2020-07-20 15:50 | PN ---
Physical Exam: SUBJECTIVE: Patient seen and examined at bedside. The patient denies fever/chills or pain. The toes are still numb, but the patient has no new complaints. Amputation surgery today. OBJECTIVE: Vital Signs Period Temp Pulse Resp BP Sys/Aguilera Pulse Ox Last 24 Hr 97.4 F-98.5 F 68-87 16-18 117-137/66-92 95-99 GENERAL: The patient is awake, alert, and fully oriented, in no acute distress. HEAD: Normal with no signs of trauma. EYES: Extraocular movements intact. No ptosis. ENT: Ears normal, nares patent, oropharynx clear without exudates, moist mucous membranes. NECK: Trachea midline, full range of motion, supple. LUNGS: Breath sounds equal, clear to auscultation bilaterally, no wheezes, no crackles, no accessory muscle use. HEART: Regular rate and rhythm, S1, S2 without murmur, rub or gallop. ABDOMEN: Soft, nontender, high BMI, normoactive bowel sounds, no guarding, no rebound, no masses. EXTREMITIES: Weak but palpable pulses bilaterally in feet, warm, well-perfused, mild edema bilaterally. Charcot feet appearance bilaterally. Right 1st and 2nd toe bandaged. Right 1st toes amputated. Right 2nd toe with an erythematous wound draining a mild amount of pus. Left 1st toe with only half a toe nail. NEUROLOGICAL: Normal speech, gait not observed. Numbness in toes bilaterally a nd numbness in his feet on both the dorsal and plantar aspects. Sensation intact above the feet bilaterally and in the upper extremities bilaterally. +5/5 muscle strength with dorsiflexion and planarflexion of the feet bilaterally. PSYCH: Normal mood, normal affect. SKIN: Warm, dry, normal turgor. Laboratory Results - last 24 hr 07/19/20 07/19/20 07/20/20 17:05 21:40 06:22 WBC RBC Hgb Hct MCV MCH MCHC RDW Plt Count MPV Sodium Potassium Chloride Carbon Dioxide Anion Gap BUN Creatinine Est GFR (CKD-EPI)AfAm Est GFR (CKD-EPI)NonAf POC Glucometer 124 176 129 Random Glucose Calcium 07/20/20 07/20/20 07:20 07:20 WBC 7.2 RBC 3.59 L Hgb 10.4 L Hct 31.2 L MCV 86.9 MCH 29.0 MCHC 33.4 RDW 14.9 Plt Count 227 MPV 8.3 Sodium 139 Potassium 4.2 Chloride 110 H Carbon Dioxide 23 Anion Gap 7 L BUN 25.3 H Creatinine 1.4 H Est GFR (CKD-EPI)AfAm 65.09 Est GFR (CKD-EPI)NonAf 56.16 POC Glucometer Random Glucose 136 H Calcium 8.4 L Active Medications Generic Name Dose Route Start Last Admin Trade Name Freq PRN Reason Stop Dose Admin Atorvastatin Calcium 20 mg 07/20/20 22:00 Lipitor - PO HS COUNTS INCLUDE 234 BEDS AT THE [facility] Cholecalciferol 1,000 unit 07/21/20 10:00 Vitamin D3 - PO DAILY COUNTS INCLUDE 234 BEDS AT THE [facility] Fentanyl 50 mcg 07/20/20 11:52 Sublimaze Injection - IVPUSH 07/21/20 11:51 [id number] PRN PAIN-PACU ORDER X 4 DOSES ONLY Gabapentin 300 mg 07/20/20 22:00 Neurontin - PO BID COUNTS INCLUDE 234 BEDS AT THE [facility] Piperacillin Sod/Tazobactam 50 mls @ 100 mls/hr 07/20/20 18:00 Sod 3.375 gm/ Dextrose IVPB Q8H-IV COUNTS INCLUDE 234 BEDS AT THE [facility] Protocol Insulin Aspart 1 vial 07/20/20 16:30 Novolog Vial Sliding Scale - SQ ACHS COUNTS INCLUDE 234 BEDS AT THE [facility] Protocol Lisinopril 5 mg 07/21/20 10:00 Prinivil PO DAILY COUNTS INCLUDE 234 BEDS AT THE [facility] Metoprolol Succinate 25 mg 07/21/20 10:00 Toprol Xl - PO DAILY COUNTS INCLUDE 234 BEDS AT THE [facility] Ondansetron HCl 4 mg 07/20/20 11:52 Zofran Injection IVPUSH 07/21/20 11:51 Q6H PRN NAUSEA AND/OR VOMITING Oxycodone HCl 10 mg 07/20/20 11:52 Roxicodone - PO 07/21/20 11:51 Q4H PRN PAIN LEVEL 6-10 Oxycodone HCl 5 mg 07/20/20 11:52 Roxicodone - PO 07/21/20 11:48 Q4H PRN PAIN LEVEL 1-5 Promethazine HCl 12.5 mg 07/20/20 11:52 Phenergan Injection - IVPB 07/21/20 11:51 Q6H PRN NAUSEA-FOR RESCUE AFTER 15 MIN ASSESSMENT/PLAN: 54 year old male patient with past medical history that includes HTN, HLD, DM, PVD with stent placement 1x in leg and 1x in stomach per patient, right big toe amputation, right 2nd toe partial amputation, and charcot joints, who presented to the emergency room with a right 2nd toe foul smelling wound for 2 days with erythema and with a right 3rd toe ulceration with swelling and erythema. 1. Infected toe wound / cellulitis - Amputation today since MRI shows osteomyelitis - Zosyn 3.375 gm 2. Normocytic Anemia - Hgb 10.4 today - Iron 29 (Low) - Ferritin 62 (WNL) - MCV 87 (WNL) 3. DM - A1C 6.0% - Novolog # FEN - Monitoring Electrolytes, low sodium Diabetic Diet DVT PPx - Heparin and Plavix on hold for surgery today Dispo - Amputation today Visit type - Emergency Visit Emergency Visit: Yes ED Registration Date: 07/18/20 Care time: The patient presented to the Emergency Department on the above date and was hospitalized for further evaluation of their emergent condition. - New Patient This patient is new to me today: No - Critical Care Critical Care patient: No - Discharge Referral Referred to [facility] No ATTENDING PHYSICIAN STATEMENT I saw and evaluated the patient. I reviewed the resident's note and discussed the case with the resident. I agree with the resident's findings and plan as documented. SUBJECTIVE: OBJECTIVE: ASSESSMENT AND PLAN:
--- NOTE | 2020-07-20 18:55 | PN ---
Teaching Attending Note Name of Resident: Miki Valenzuela ATTENDING PHYSICIAN STATEMENT I saw and evaluated the patient. I reviewed the resident's note and discussed the case with the resident. I agree with the resident's findings and plan as documented. SUBJECTIVE: seen after procedure No fever or chills , no pain in foot. No LONDONO . no SOB OBJECTIVE: NAd , awake, alert, flat affect Ext : No edema or erythema on legs. R foot covered in a surgical dressing. last two toes are normal in appearance and with decreased sensation , able to wiggle . L foot with decreased sensationto light touch ASSESSMENT AND PLAN: 54 y/o man with h/o T2DM, PVD, osteomyelitis distal phalanx,right second digit partial amputation, PVd s/p stents presents to the ER with ulcer and drainage form R 2nd toe 1- OM of proximal phalanx of R 2nd toe. s/p proximal phalanx and metatarsal head amputation 07/20 2- H/o DM 3- PVD 4- contamination with Coag neg staph 5- CKD plan : - blood cx with coag neg staph, likely contamination . repeat bloodc x neg - pain control - cont Abx . d/w Dr. Wu, only zosyn is indicated now - decision on Abx depends on cx of the proximal margins - d/w dr. Sahu - cont plavix . - resume xarelto - unknown reason for xarelto . per PCP his vascular surgeon is the one prescribes. team coulod not reach dr. Zapien - cont neurontin dispo : HLOC pending bone cx
[2020-07-20] MEDS: ATORVASTATIN CA 20 MG TABLET (FP) PO SCH (22:31)
[2020-07-21] MEDS ORDERED: PIPERACILLIN/TAZOBACTAM 3.375 GM VIAL IVPB ONE ×3 (01:19→17:02)
[2020-07-21] MEDS ORDERED: DEXTROSE 5%-WATER - 50 ML IVPB ONE ×3 (01:19→17:02)
[2020-07-21] MEDS: PIPERACILLIN/TAZOB 3.375 GM 3.375 GM in DEXTROSE 5%-WATER - 50 ML IVPB SCH ×3 (01:34→17:13)
[2020-07-21] MEDS: INSULIN SLIDING SCALE (NOVOLOG) 1 VIAL SQ SCH ×4 (06:17→22:43)
[2020-07-21 08:11] LABS: BLOOD UREA NITROGEN 26.3 mg/dL (7-18); CALCIUM 8.2 mg/dL (8.5-10.1); CREATININE 1.4 mg/dL (0.55-1.3); POTASSIUM 4.4 mmol/L (3.5-5.1)
[2020-07-21 08:16] LABS: HEMATOCRIT 29.6 % (35.4-49); MCH 29.2 pg (25.7-33.7); MCHC 33.7 g/dl (32.0-35.9); MEAN CELL VOLUME 86.6 fl (80-96); MEAN PLT VOLUME 8.3 fl (7.5-11.1); PLATELET COUNT 210 K/MM3 (134-434); RBC 3.42 M/mm3 (4.00-5.60); WHITE BLOOD COUNT 7.6 K/mm3 (4.0-10.0)
[2020-07-21] MEDS: GABAPENTIN 300 MG CAPSULE PO SCH ×2 (09:36→22:43)
[2020-07-21] MEDS: CHOLECALCIFEROL (VIT D3) 1,000 UNIT (25 MCG) TABLET PO SCH (09:37)
[2020-07-21] MEDS: LISINOPRIL 5 MG TABLET (FP) PO SCH (09:46)
[2020-07-21] MEDS: metoPROLOL SUCCINATE 25 MG TAB.SR.24H (FP) PO SCH (09:46)
--- NOTE | 2020-07-21 11:01 | PN ---
Progress Note (short form) - Note Progress Note: Anesthesia postop note 54 y/o M s/p MAC for toe amputation POD#1, vss, aaox3, no complaints. No anesthesia complications.
--- NOTE | 2020-07-21 12:31 | PN ---
Progress Note, Physician History of Present Illness: stable no new issues cx results noted awaiting for identification of the organisms - Current Medication List Current Medications: Active Medications Atorvastatin Calcium (Lipitor -) 20 mg PO HS [facility] Last Admin: 07/20/20 22:31 Dose: 20 mg Documented by: Cholecalciferol (Vitamin D3 -) 1,000 unit PO DAILY [facility] Last Admin: 07/21/20 09:37 Dose: 1,000 unit Documented by: Gabapentin (Neurontin -) 300 mg PO BID [facility] Last Admin: 07/21/20 09:36 Dose: 300 mg Documented by: Piperacillin Sod/Tazobactam (Sod 3.375 gm/ Dextrose) 50 mls @ 100 mls/hr IVPB Q8H-IV [facility]; Protocol Last Admin: 07/21/20 09:37 Dose: 100 mls/hr Documented by: Insulin Aspart (Novolog Vial Sliding Scale -) 1 vial SQ ACHS [facility]; Protocol Last Admin: 07/21/20 11:52 Dose: Not Given Documented by: Lisinopril (Prinivil) 5 mg PO DAILY [facility] Last Admin: 07/21/20 09:46 Dose: 5 mg Documented by: Metoprolol Succinate (Toprol Xl -) 25 mg PO DAILY [facility] Last Admin: 07/21/20 09:46 Dose: 25 mg Documented by: Rivaroxaban (Xarelto) 10 mg PO DAILY@1800 [facility] - Objective Vital Signs: Vital Signs Temperature 98.9 F 07/21/20 09:48 Pulse Rate 84 07/21/20 09:48 Respiratory Rate 18 07/21/20 09:48 Blood Pressure 140/76 07/21/20 09:48 O2 Sat by Pulse Oximetry (%) 96 07/21/20 09:48 Constitutional: Yes: No Distress, Calm, Anxious Cardiovascular: Yes: S1, S2 Respiratory: Yes: Regular, CTA Bilaterally Gastrointestinal: Yes: Normal Bowel Sounds, Soft Musculoskeletal: Yes: WNL Extremities: Yes: Erythema (improved), Other Wound/Incision: Yes: Dressing Dry and Intact Neurological: Yes: Alert, Oriented Psychiatric: Yes: Alert, Oriented Labs: CBC, BMP 07/21/20 06:45 07/21/20 06:45 INR, PTT INR 1.21 (0.83-1.09) H 07/18/20 01:10 Assessment/Plan Problem List - Problems (1) Diabetic foot infection Code(s): E11.628 - TYPE 2 DIABETES MELLITUS WITH OTHER SKIN COMPLICATIONS; L08.9 - LOCAL INFECTION OF THE SKIN AND SUBCUTANEOUS TISSUE, UNSP (2) CKD (chronic kidney disease) Code(s): N18.9 - CHRONIC KIDNEY DISEASE, UNSPECIFIED Qualifiers: Chronic kidney disease stage: stage 2 (mild) Qualified Code(s): N18.2 - Chronic kidney disease, stage 2 (mild) (3) HTN (hypertension) Code(s): I10 - ESSENTIAL (PRIMARY) HYPERTENSION 4 pvd 5 osteo of the foot plan continue abx zosyn await for final bone pathology rest as per the team
--- NOTE | 2020-07-21 13:51 | PN ---
Teaching Attending Note Name of Resident: Colin Renteria ATTENDING PHYSICIAN STATEMENT I saw and evaluated the patient. I reviewed the resident's note and discussed the case with the resident. I agree with the resident's findings and plan as documented. SUBJECTIVE: No fever or chills. No pain. no LONDONO , no SOB OBJECTIVE: NAD, awake, alert, flat affect Lungs: CATB CV: RRR Ext: No edema or erythema on legs. R foot covered in a surgical dressing. No edema on legs. ASSESSMENT AND PLAN: 54 y/o man with h/o T2DM, PVD, osteomyelitis distal phalanx,right second digit partial amputation, PVd s/p stents presents to the ER with ulcer and drainage form R 2nd toe 1- OM of proximal phalanx of R 2nd toe. s/p proximal phalanx and metatarsal head amputation 07/20 2- H/o DM 3- PVD 4- Contamination with Coag neg staph 5- CKD plan : - cont zosyn - follow proximal bone cx and surgical soft tissue cx ( prelim reviewed with Dr. Wu) - plan for final Abx to follow - pain control - cont plavix . - will confirm xarelto dose with his pharmacy and Dr. Zapien . he says he takes it twice a day, but does nto remember the dose - cont neurontin Dispo: HLOC pending bone cx
--- NOTE | 2020-07-21 14:24 | PN ---
Physical Exam: SUBJECTIVE: Patient seen and examined at the bedside, low mood due to multiple, prolonged hospital stays for foot wound complications, no acute pain. OBJECTIVE: Vital Signs Period Temp Pulse Resp BP Sys/Aguilera Pulse Ox Last 24 Hr 97.4 F-99.2 F 77-86 18-18 125-155/62-77 96-98 GENERAL: The patient is awake, alert, and fully oriented, in no acute distress. HEAD: Normal with no signs of trauma. EYES: Extraocular movements intact. No ptosis. ENT: Ears normal, nares patent, oropharynx clear without exudates, moist mucous membranes. NECK: Trachea midline, full range of motion, supple. LUNGS: Breath sounds equal, clear to auscultation bilaterally, no wheezes, no crackles, no accessory muscle use. HEART: Regular rate and rhythm, S1, S2 without murmur, rub or gallop. ABDOMEN: Soft, nontender, non-distended EXTREMITIES: Rt toes bandaged, dry blood visible on dressing, pt unwilling to let examiner take off dressing NEUROLOGICAL: Motor 5/5, sensations diminished in tip of toes B/L, intact elsewhere Laboratory Results - last 24 hr 07/20/20 07/20/20 07/21/20 16:59 22:29 06:16 WBC RBC Hgb Hct MCV MCH MCHC RDW Plt Count MPV Sodium Potassium Chloride Carbon Dioxide Anion Gap BUN Creatinine Est GFR (CKD-EPI)AfAm Est GFR (CKD-EPI)NonAf POC Glucometer 218 180 157 Random Glucose Calcium 07/21/20 07/21/20 07/21/20 06:45 06:45 10:58 WBC 7.6 RBC 3.42 L Hgb 10.0 L Hct 29.6 L MCV 86.6 MCH 29.2 MCHC 33.7 RDW 15.0 Plt Count 210 MPV 8.3 Sodium 140 Potassium 4.4 Chloride 110 H Carbon Dioxide 21 Anion Gap 9 BUN 26.3 H Creatinine 1.4 H Est GFR (CKD-EPI)AfAm 65.09 Est GFR (CKD-EPI)NonAf 56.16 POC Glucometer 176 Random Glucose 163 H Calcium 8.2 L Active Medications Generic Name Dose Route Start Last Admin Trade Name Freq PRN Reason Stop Dose Admin Atorvastatin Calcium 20 mg 07/20/20 22:00 07/20/20 22:31 Lipitor - PO 20 mg HS [facility] Administration Cholecalciferol 1,000 unit 07/21/20 10:00 07/21/20 09:37 Vitamin D3 - PO 1,000 unit DAILY [facility] Administration Gabapentin 300 mg 07/20/20 22:00 07/21/20 09:36 Neurontin - PO 300 mg BID [facility] Administration Piperacillin Sod/Tazobactam 50 mls @ 100 mls/hr 07/20/20 18:00 07/21/20 09:37 Sod 3.375 gm/ Dextrose IVPB 100 mls/hr Q8H-IV [facility] Administration Protocol Insulin Aspart 1 vial 07/20/20 16:30 07/21/20 11:52 Novolog Vial Sliding Scale - SQ Not Given ACHS [facility] Protocol Lisinopril 5 mg 07/21/20 10:00 07/21/20 09:46 Prinivil PO 5 mg DAILY [facility] Administration Metoprolol Succinate 25 mg 07/21/20 10:00 07/21/20 09:46 Toprol Xl - PO 25 mg DAILY [facility] Administration Rivaroxaban 10 mg 07/21/20 18:00 Xarelto PO DAILY@1800 [facility] ASSESSMENT/PLAN: 54M with PMH HTN, HLD, DM, PVD, presented with RLE 2nd toe foul smelling wound, admitted for management of suspected OM. #OM RLE 2nd toe - Confirmed on MRI - s/p RLE 2nd toe proximal phalynx/metatarsal head amputation 07/20 - Zosyn 3.375 Q8H (07/18) # PAD - Plavix 75mg daily and Xarelto 2.5mg BID at home - Xarelto dose 2.5mg BID as per pharmacy, starting on 10mg daily until dose confirmed - Left a message for pt's vascular surgeon Dr. Arthur العراقي regarding clarification of Xarelto dosage, awaiting call-back #Hx of HTN/HLD - Continue Metoprolol Succinate 25mg and Lisinopril 5mg daily - Continue Lipitor 20mg daily #Hx of DM - A1C 6.0% - BGM, ISS #FEN - DM/Na controlled diet #Prophylaxis - On Xarelto #Dispo - Awaiting bone culture results to determine appropriate abx as well as duration of therapy ATTENDING PHYSICIAN STATEMENT I saw and evaluated the patient. I reviewed the resident's note and discussed the case with the resident. I agree with the resident's findings and plan as documented. SUBJECTIVE: OBJECTIVE: ASSESSMENT AND PLAN:
--- NOTE | 2020-07-21 15:43 | PN ---
Progress Note, Physician History of Present Illness: Pt seen and examined at bedside. He is awake and alert. he denies shortness of breath. - Current Medication List Current Medications: Active Medications Atorvastatin Calcium (Lipitor -) 20 mg PO HS [facility] Last Admin: 07/20/20 22:31 Dose: 20 mg Documented by: Cholecalciferol (Vitamin D3 -) 1,000 unit PO DAILY [facility] Last Admin: 07/21/20 09:37 Dose: 1,000 unit Documented by: Gabapentin (Neurontin -) 300 mg PO BID [facility] Last Admin: 07/21/20 09:36 Dose: 300 mg Documented by: Piperacillin Sod/Tazobactam (Sod 3.375 gm/ Dextrose) 50 mls @ 100 mls/hr IVPB Q8H-IV [facility]; Protocol Last Admin: 07/21/20 09:37 Dose: 100 mls/hr Documented by: Insulin Aspart (Novolog Vial Sliding Scale -) 1 vial SQ ACHS [facility]; Protocol Last Admin: 07/21/20 11:52 Dose: Not Given Documented by: Lisinopril (Prinivil) 5 mg PO DAILY [facility] Last Admin: 07/21/20 09:46 Dose: 5 mg Documented by: Metoprolol Succinate (Toprol Xl -) 25 mg PO DAILY [facility] Last Admin: 07/21/20 09:46 Dose: 25 mg Documented by: Rivaroxaban (Xarelto) 10 mg PO DAILY@1800 [facility] - Objective Vital Signs: Vital Signs Temperature 98.5 F 07/21/20 14:00 Pulse Rate 82 07/21/20 15:15 Respiratory Rate 18 07/21/20 15:15 Blood Pressure 130/67 07/21/20 15:15 O2 Sat by Pulse Oximetry (%) 98 07/21/20 14:00 Constitutional: Yes: Calm Eyes: Yes: Conjunctiva Clear HENT: Yes: Atraumatic Neck: Yes: Supple Cardiovascular: Yes: S1, S2 Respiratory: Yes: CTA Bilaterally Gastrointestinal: Yes: Soft Genitourinary: Yes: WNL Musculoskeletal: Yes: WNL Edema: No Wound/Incision: Yes: Dressing Dry and Intact Neurological: Yes: Oriented Psychiatric: Yes: Oriented Labs: CBC, BMP 07/21/20 06:45 07/21/20 06:45 INR, PTT INR 1.21 (0.83-1.09) H 07/18/20 01:10 Problem List - Problems (1) Diabetic foot infection Code(s): E11.628 - TYPE 2 DIABETES MELLITUS WITH OTHER SKIN COMPLICATIONS; L08.9 - LOCAL INFECTION OF THE SKIN AND SUBCUTANEOUS TISSUE, UNSP (2) CKD (chronic kidney disease) Code(s): N18.9 - CHRONIC KIDNEY DISEASE, UNSPECIFIED Qualifiers: Chronic kidney disease stage: stage 2 (mild) Qualified Code(s): N18.2 - Chronic kidney disease, stage 2 (mild) (3) HTN (hypertension) Code(s): I10 - ESSENTIAL (PRIMARY) HYPERTENSION Assessment/Plan Current Medications Generic Name Dose Route Start Last Admin Trade Name Edwin PRN Reason Stop Dose Admin Atorvastatin Calcium 20 mg 07/20/20 22:00 07/20/20 22:31 Lipitor - PO 20 mg HS [facility] Administration Cholecalciferol 1,000 unit 07/21/20 10:00 07/21/20 09:37 Vitamin D3 - PO 1,000 unit DAILY [facility] Administration Gabapentin 300 mg 07/20/20 22:00 07/21/20 09:36 Neurontin - PO 300 mg BID [facility] Administration Piperacillin Sod/Tazobactam 50 mls @ 100 mls/hr 07/20/20 18:00 07/21/20 09:37 Sod 3.375 gm/ Dextrose IVPB 100 mls/hr Q8H-IV [facility] Administration Protocol Insulin Aspart 1 vial 07/20/20 16:30 07/21/20 11:52 Novolog Vial Sliding Scale - SQ Not Given ACHS [facility] Protocol Lisinopril 5 mg 07/21/20 10:00 07/21/20 09:46 Prinivil PO 5 mg DAILY [facility] Administration Metoprolol Succinate 25 mg 07/21/20 10:00 07/21/20 09:46 Toprol Xl - PO 25 mg DAILY [facility] Administration Rivaroxaban 10 mg 07/21/20 18:00 Xarelto PO DAILY@1800 [facility] Impression 1. CKD 2. dm 3. htn 4. hld 5. osteo 6. pvd 7. protienuria Plan - elementary supervisor remains stable at 1.4 - cont lisinopril - wound care - abx per medical team - avoid nsaids - podiatry/vascular follow up
--- NOTE | 2020-07-21 16:07 | PN ---
Progress Note (short form) - Note Progress Note: Podiatry F/U: Seen/evaluated at bedside, no apparent distress. Pain controlled, denies F/V/N/C/SOB/CP. Afebrile. S/p right second digit amputation POD#1. REVA: R foot: Surgical dressing is clean, dry, intact. There is no active bleeding, no bandage strikethrough. Sutures are well coapted, no dehiscence noted. There is mild sanguinous drainage. There is no purulent drainage, no fluctuance, no streaking ascending cellulitis, no signs of active infection. Minimal tenderness to palpation. OR Cx: beta strep B, pending org Blood Cx (Current): no growth x 24 hrs Imp: 54 year old diabetic PVD male s/p right second digit amputation for osteomyelitis, POD#1 1. DSD R foot applied 2. Continue intravenous abx as prescribed 3. F/u operative cultures 4. Will follow Karrie Hawkins DPM
[2020-07-21] MEDS ORDERED: RIVAROXABAN 20 MG TABLET PO SCH (18:00)
[2020-07-21] MEDS ORDERED: RIVAROXABAN 10 MG TABLET PO SCH (18:00)
[2020-07-21] MEDS: ATORVASTATIN CA 20 MG TABLET (FP) PO SCH (22:43)
[2020-07-22] MEDS ORDERED: DEXTROSE 5%-WATER - 50 ML IVPB ONE ×3 (01:35→17:48)
[2020-07-22] MEDS ORDERED: PIPERACILLIN/TAZOBACTAM 3.375 GM VIAL IVPB ONE ×3 (01:35→17:47)
[2020-07-22] MEDS: PIPERACILLIN/TAZOB 3.375 GM 3.375 GM in DEXTROSE 5%-WATER - 50 ML IVPB SCH ×3 (01:46→17:52)
[2020-07-22] MEDS: INSULIN SLIDING SCALE (NOVOLOG) 1 VIAL SQ SCH ×4 (06:22→21:45)
[2020-07-22 08:10] LABS: BASO % 0.4 % (0-2.0); EOS % 2.2 % (0-4.5); HEMATOCRIT 29.4 % (35.4-49); HEMOGLOBIN 9.8 GM/dL (11.7-16.9); LYMPH % 20.3 % (8-40); MCH 28.9 pg (25.7-33.7); MCHC 33.5 g/dl (32.0-35.9); MEAN CELL VOLUME 86.3 fl (80-96); MEAN PLT VOLUME 8.2 fl (7.5-11.1); MONO % 11.9 % (3.8-10.2); NEUT % 65.2 % (42.8-82.8); PLATELET COUNT 225 K/MM3 (134-434); RDW 14.7 % (11.9-15.9); WHITE BLOOD COUNT 8.1 K/mm3 (4.0-10.0)
[2020-07-22 08:31] LABS: ALBUMIN 2.7 g/dl (3.4-5.0); BILIRUBIN,TOTAL 0.3 mg/dL (0.2-1); CALCIUM 8.3 mg/dL (8.5-10.1); CREATININE 1.4 mg/dL (0.55-1.3); MAGNESIUM 2.1 mg/dL (1.8-2.4); PHOSPHOROUS 3.9 mg/dL (2.5-4.9); POTASSIUM 4.1 mmol/L (3.5-5.1); TOT PROT 6.4 g/dl (6.4-8.2)
[2020-07-22 08:34] LABS: BLOOD UREA NITROGEN 23.5 mg/dL (7-18)
[2020-07-22] MEDS ORDERED: PT OWN MED DRAWER 7, Y5N ONE ×2 (10:45→21:40)
[2020-07-22] MEDS ORDERED: INSULIN (NOVOLOG) ASPART 100 UNITS/ML 10ML VIAL ONE (10:45)
[2020-07-22] MEDS: GABAPENTIN 300 MG CAPSULE PO SCH ×2 (10:59→21:44)
[2020-07-22] MEDS: CLOPIDOGREL BISULFATE 75 MG TABLET (FP) PO SCH (10:59)
[2020-07-22] MEDS: RIVAROXABAN 2.5 MG TABLET PO SCH ×2 (10:59→21:45)
[2020-07-22] MEDS: metoPROLOL SUCCINATE 25 MG TAB.SR.24H (FP) PO SCH (10:59)
[2020-07-22] MEDS: CHOLECALCIFEROL (VIT D3) 1,000 UNIT (25 MCG) TABLET PO SCH (11:00)
[2020-07-22] MEDS: LISINOPRIL 5 MG TABLET (FP) PO SCH (11:01)
--- NOTE | 2020-07-22 12:50 | PN ---
Progress Note, Physician History of Present Illness: stable no new issues - Current Medication List Current Medications: Active Medications Atorvastatin Calcium (Lipitor -) 20 mg PO HS [facility] Last Admin: 07/21/20 22:43 Dose: 20 mg Documented by: Cholecalciferol (Vitamin D3 -) 1,000 unit PO DAILY [facility] Last Admin: 07/22/20 11:00 Dose: 1,000 unit Documented by: Clopidogrel Bisulfate (Plavix -) 75 mg PO DAILY [facility] Last Admin: 07/22/20 10:59 Dose: 75 mg Documented by: Gabapentin (Neurontin -) 300 mg PO BID [facility] Last Admin: 07/22/20 10:59 Dose: 300 mg Documented by: Piperacillin Sod/Tazobactam (Sod 3.375 gm/ Dextrose) 50 mls @ 100 mls/hr IVPB Q8H-IV [facility]; Protocol Last Admin: 07/22/20 10:58 Dose: 100 mls/hr Documented by: Insulin Aspart (Novolog Vial Sliding Scale -) 1 vial SQ ACHS [facility]; Protocol Last Admin: 07/22/20 11:02 Dose: Not Given Documented by: Lisinopril (Prinivil) 5 mg PO DAILY [facility] Last Admin: 07/22/20 11:01 Dose: 5 mg Documented by: Metoprolol Succinate (Toprol Xl -) 25 mg PO DAILY [facility] Last Admin: 07/22/20 10:59 Dose: 25 mg Documented by: Rivaroxaban (Xarelto) 2.5 mg PO BID [facility] Last Admin: 07/22/20 10:59 Dose: 2.5 mg Documented by: - Objective Vital Signs: Vital Signs Temperature 98.5 F 07/22/20 11:13 Pulse Rate 75 07/22/20 11:13 Respiratory Rate 18 07/22/20 11:13 Blood Pressure 136/68 07/22/20 11:13 O2 Sat by Pulse Oximetry (%) 97 07/22/20 11:13 Constitutional: Yes: No Distress, Calm Cardiovascular: Yes: S1, S2 Respiratory: Yes: Regular, CTA Bilaterally Gastrointestinal: Yes: Normal Bowel Sounds, Soft Musculoskeletal: Yes: WNL, Other Extremities: Yes: Erythema Wound/Incision: Yes: Dressing Dry and Intact Neurological: Yes: Alert, Oriented Psychiatric: Yes: Alert, Oriented Labs: CBC, BMP 07/22/20 07:34 07/22/20 07:34 INR, PTT INR 1.21 (0.83-1.09) H 07/18/20 01:10 Assessment/Plan Problem List - Problems (1) Diabetic foot infection Code(s): E11.628 - TYPE 2 DIABETES MELLITUS WITH OTHER SKIN COMPLICATIONS; L08.9 - LOCAL INFECTION OF THE SKIN AND SUBCUTANEOUS TISSUE, UNSP (2) CKD (chronic kidney disease) Code(s): N18.9 - CHRONIC KIDNEY DISEASE, UNSPECIFIED Qualifiers: Chronic kidney disease stage: stage 2 (mild) Qualified Code(s): N18.2 - Chronic kidney disease, stage 2 (mild) (3) HTN (hypertension) Code(s): I10 - ESSENTIAL (PRIMARY) HYPERTENSION 4 pvd 5 osteo of the foot plan ct abx await for cx reports wound care rest as per podiatry one final cx negative can switch to oral for couple of days
--- NOTE | 2020-07-22 15:09 | PN ---
Progress Note, Physician History of Present Illness: Pt seen and examined at bedside. He is awake and alert. He denies dysuria or hematuria. - Current Medication List Current Medications: Active Medications Atorvastatin Calcium (Lipitor -) 20 mg PO HS [facility] Last Admin: 07/21/20 22:43 Dose: 20 mg Documented by: Cholecalciferol (Vitamin D3 -) 1,000 unit PO DAILY [facility] Last Admin: 07/22/20 11:00 Dose: 1,000 unit Documented by: Clopidogrel Bisulfate (Plavix -) 75 mg PO DAILY [facility] Last Admin: 07/22/20 10:59 Dose: 75 mg Documented by: Gabapentin (Neurontin -) 300 mg PO BID [facility] Last Admin: 07/22/20 10:59 Dose: 300 mg Documented by: Piperacillin Sod/Tazobactam (Sod 3.375 gm/ Dextrose) 50 mls @ 100 mls/hr IVPB Q8H-IV [facility]; Protocol Last Admin: 07/22/20 10:58 Dose: 100 mls/hr Documented by: Insulin Aspart (Novolog Vial Sliding Scale -) 1 vial SQ ACHS [facility]; Protocol Last Admin: 07/22/20 11:02 Dose: Not Given Documented by: Lisinopril (Prinivil) 5 mg PO DAILY [facility] Last Admin: 07/22/20 11:01 Dose: 5 mg Documented by: Metoprolol Succinate (Toprol Xl -) 25 mg PO DAILY [facility] Last Admin: 07/22/20 10:59 Dose: 25 mg Documented by: Rivaroxaban (Xarelto) 2.5 mg PO BID [facility] Last Admin: 07/22/20 10:59 Dose: 2.5 mg Documented by: - Objective Vital Signs: Vital Signs Temperature 98.5 F 07/22/20 11:13 Pulse Rate 75 07/22/20 11:13 Respiratory Rate 18 07/22/20 11:13 Blood Pressure 136/68 07/22/20 11:13 O2 Sat by Pulse Oximetry (%) 97 07/22/20 11:13 Constitutional: Yes: Calm Eyes: Yes: Conjunctiva Clear HENT: Yes: Atraumatic Neck: Yes: Supple Cardiovascular: Yes: S1, S2 Respiratory: Yes: CTA Bilaterally Gastrointestinal: Yes: Soft Genitourinary: Yes: WNL Musculoskeletal: Yes: WNL Edema: No Wound/Incision: Yes: Dressing Dry and Intact Neurological: Yes: Oriented Labs: CBC, BMP 07/22/20 07:34 07/22/20 07:34 INR, PTT INR 1.21 (0.83-1.09) H 07/18/20 01:10 Problem List - Problems (1) Diabetic foot infection Code(s): E11.628 - TYPE 2 DIABETES MELLITUS WITH OTHER SKIN COMPLICATIONS; L08.9 - LOCAL INFECTION OF THE SKIN AND SUBCUTANEOUS TISSUE, UNSP (2) CKD (chronic kidney disease) Code(s): N18.9 - CHRONIC KIDNEY DISEASE, UNSPECIFIED Qualifiers: Chronic kidney disease stage: stage 2 (mild) Qualified Code(s): N18.2 - Chronic kidney disease, stage 2 (mild) (3) HTN (hypertension) Code(s): I10 - ESSENTIAL (PRIMARY) HYPERTENSION Assessment/Plan Current Medications Generic Name Dose Route Start Last Admin Trade Name Freq PRN Reason Stop Dose Admin Atorvastatin Calcium 20 mg 07/20/20 22:00 07/21/20 22:43 Lipitor - PO 20 mg HS F[facility]ELINA Administration Cholecalciferol 1,000 unit 07/21/20 10:00 07/22/20 11:00 Vitamin D3 - PO 1,000 unit DAILY [facility]ELINA Administration Clopidogrel Bisulfate 75 mg 07/22/20 10:00 07/22/20 10:59 Plavix - PO 75 mg DAILY [facility]EL[facility] Administration Gabapentin 300 mg 07/20/20 22:00 07/22/20 10:59 Neurontin - PO 300 mg BID FIDELINA Administration Piperacillin Sod/Tazobactam 50 mls @ 100 mls/hr 07/20/20 18:00 07/22/20 10:58 Sod 3.375 gm/ Dextrose IVPB 100 mls/hr Q8H-IV [facility] Administration Protocol Insulin Aspart 1 vial 07/20/20 16:30 07/22/20 11:02 Novolog Vial Sliding Scale - SQ Not Given ACHS FIDELINA Protocol Lisinopril 5 mg 07/21/20 10:00 07/22/20 11:01 Prinivil PO 5 mg DAILY [facility] Administration Metoprolol Succinate 25 mg 07/21/20 10:00 07/22/20 10:59 Toprol Xl - PO 25 mg DAILY [facility] Administration Rivaroxaban 2.5 mg 07/22/20 10:00 07/22/20 10:59 Xarelto PO 2.5 mg BID F[facility] Administration Impression 1. CKD 2. dm 3. htn 4. hld 5. osteo 6. pvd 7. protienuria Plan - renal function stable - cont amador - avoid nephrotoxins - wound care - abx per medical team - avoid nsaids - podiatry/vascular follow up - will follow prn
--- NOTE | 2020-07-22 15:33 | PN ---
Progress Note (short form) - Note Progress Note: Podiatry F/U; Seen/evaluated at bedside NAD. Pain is controlled. Denies F/V/N/C/SOB/CP. AFebrile. S/p right second digit amputation, second metatarsal head resection for osteomyelitis. REVA: R foot: dressing clean, dry, intact. No active bleeding, no strikethrough. Sutures well coapted, no dehiscence noted. No purulent drainage, no fluctuance, no streaking ascending cellulitis, no signs of active infection. No ischemic changes to the surgical site. Minimal tenderness to palpation of the surgical site. OR Cx: no growth x 24 hrs OR Path: pending Imp: 54 year old diabetic PVD male s/p right second digit amputation, second metatarsal head resection 1. IV abx per ID 2. DSD R foot 3. PWB R heel with surgical offloading shoe 4. F/u operative pathology. Bone culture negative thus far. 5. Will follow
--- NOTE | 2020-07-22 16:26 | PN ---
Teaching Attending Note Name of Resident: Miki Valenzuela ATTENDING PHYSICIAN STATEMENT I saw and evaluated the patient. I reviewed the resident's note and discussed the case with the resident. I agree with the resident's findings and plan as documented. SUBJECTIVE: no pain, no fever or chills . no [place] OBJECTIVE: NAD, awake, alert, flat affect Lungs: CATB CV: RRR Ext: No edema or erythema on legs. R foot covered in a dressing. he declined removal ASSESSMENT AND PLAN: 54 y/o man with h/o T2DM, PVD, osteomyelitis distal phalanx,right second digit partial amputation, PVd s/p stents presents to the ER with ulcer and drainage form R 2nd toe 1- OM of proximal phalanx of R 2nd toe. s/p proximal phalanx and metatarsal head amputation 07/20 2- H/o DM 3- PVD 4- Contamination with Coag neg staph 5- CKD plan : - cont zosyn - final cx fro m surgical soft tissue is not final yet. bone cx is still negative - Abx per Id after final results - pain control - cont plavix . - xarelto was confirmed with his vascular sx [place] city, 2.5 BID - cont neurontin Dispo: HLOC pending final cx results and decision on Abx
--- NOTE | 2020-07-22 17:11 | PATH ---
Surgical Pathology Report Patient Name: MARCELINO STEPHENS [facility]. Rec. #: [id number] /Age/Gender: 1965 (Age: 54) / M Account: [id number] Location: [address] [place] [address]/[facility] Taken: 07/20/2020 Received: 07/20/2020 Reported: 07/22/2020 Physicians: Eliot Hawkins DPM Specimen(s) Received A: RIGHT FOOT SECOND DIGIT PROXIMAL BONE B: RIGHT FOOT, SECOND TOE Clinical History Diabetic foot infection Final Diagnosis A. FOOT, RIGHT, SECOND DIGIT, PROXIMAL BONE, BIOPSY: BONE WITH FATTY MARROW. NO ACUTE OSTEOMYELITIS IDENTIFIED. B. FOOT, RIGHT, SECOND TOE, AMPUTATION: DIGIT WITH MARKED ACUTE AND CHRONIC GANGRENOUS NECROSIS, AND ULCERATION. UNDERLYING BONE WITH SEVERE ACUTE OSTEOMYELITIS. VIABLE SKIN AND SOFT TISSUE MARGIN WITH PATCHY MODERATE ACUTE AND CHRONIC INFLAMMATION. BONE SURGICAL MARGIN, NEGATIVE FOR OSTEOMYELITIS. Electronically Signed Zully Renner M.D. Gross Description A. Received in formalin labeled "right foot second digit proximal bone," is a 1.3 x 1.3 x 0.5 cm tenorio-yellow portion of bone. The specimen is serially sectioned and entirely submitted in one cassette, following decalcification. B. Received in formalin labeled "right foot second toe," is a 3.3 x 2.6 x 2.0 cm toe amputation. The epidermal surface displays a 1.8 x 0.8 cm root green, ulcerated, necrotic lesion. The lesion is 0.1 cm from the skin and soft tissue margin. The lesion possibly involves the underlying bone. Research Dietitian sections are submitted in 3 cassettes as follows: 1-lesion with underlying bone, following decalcification; 2-bone margin, following decalcification; 3-skin and soft tissue margin. DL/07/21/2020 saudi/07/21/2020
--- NOTE | 2020-07-22 18:59 | PN ---
Physical Exam: SUBJECTIVE: Patient seen and examined and bedside. He is eager to leave. He reports being able to eat and pass gas. He denies fever/chills, pain, weakness, shortness of breath, dysuria, and bowel or bladder problems. The patient refused to allow me to take off his bandages and examine his wound. OBJECTIVE: Vital Signs Period Temp Pulse Resp BP Sys/[place] Pulse Ox Last 24 Hr 98.0 F-99.0 F 63-75 18-18 118-156/68-76 96-99 GENERAL: The patient is awake, alert, and fully oriented, in no acute distress. HEAD: Normal with no signs of trauma. EYES: Extraocular movements intact. No ptosis. ENT: Ears normal, nares patent, oropharynx clear without exudates, moist mucous membranes. NECK: Trachea midline, full range of motion, supple. LUNGS: Breath sounds equal, clear to auscultation bilaterally, no wheezes, no crackles, no accessory muscle use. HEART: Regular rate and rhythm, S1, S2 without murmur, rub or gallop. ABDOMEN: Soft, nontender, high BMI, normoactive bowel sounds, no guarding, no rebound, no masses. EXTREMITIES: Weak but palpable pulses bilaterally in feet, warm, well-perfused, mild edema bilaterally. Charcot feet appearance bilaterally. Right foot completely bandaged with the patient refusing for me to take the bandage off to examine the wound. Left 1st toe with only half a toe nail. NEUROLOGICAL: Normal speech, gait not observed. Numbness in toes bilaterally and numbness in his feet on both the dorsal and plantar aspects. Sensation intact above the feet bilaterally and in the upper extremities bilaterally. +5/5 muscle strength with dorsiflexion and planarflexion of the feet bilaterally. PSYCH: Normal mood, normal affect. SKIN: Warm, dry, normal turgor. Laboratory Results - last 24 hr 07/21/20 07/22/20 07/22/20 22:41 06:21 07:34 WBC 8.1 RBC 3.40 L Hgb 9.8 L Hct 29.4 L MCV 86.3 MCH 28.9 MCHC 33.5 RDW 14.7 Plt Count 225 MPV 8.2 Absolute Neuts (auto) 5.3 Neutrophils % 65.2 Lymphocytes % 20.3 D Monocytes % 11.9 H Eosinophils % 2.2 Basophils % 0.4 Nucleated RBC % 0 Sodium Potassium Chloride Carbon Dioxide Anion Gap BUN Creatinine Est GFR (CKD-EPI)AfAm Est GFR (CKD-EPI)NonAf POC Glucometer 155 140 Random Glucose Calcium Phosphorus Magnesium Total Bilirubin AST ALT Alkaline Phosphatase Total Protein Albumin 07/22/20 07/22/20 07/22/20 07:34 11:08 17:23 WBC RBC Hgb Hct MCV MCH MCHC RDW Plt Count MPV Absolute Neuts (auto) Neutrophils % Lymphocytes % Monocytes % Eosinophils % Basophils % Nucleated RBC % Sodium 139 Potassium 4.1 Chloride 108 H Carbon Dioxide 23 Anion Gap 8 BUN 23.5 H Creatinine 1.4 H Est GFR (CKD-EPI)AfAm 65.09 Est GFR (CKD-EPI)NonAf 56.16 POC Glucometer 180 180 Random Glucose 156 H Calcium 8.3 L Phosphorus 3.9 Magnesium 2.1 Total Bilirubin 0.3 AST 11 L ALT 14 Alkaline Phosphatase 72 Total Protein 6.4 Albumin 2.7 L Active Medications Generic Name Dose Route Start Last Admin Trade Name Freq PRN Reason Stop Dose Admin Atorvastatin Calcium 20 mg 07/20/20 22:00 07/21/20 22:43 Lipitor - PO 20 mg HS FIDELINA Administration Cholecalciferol 1,000 unit 07/21/20 10:00 07/22/20 11:00 Vitamin D3 - PO 1,000 unit DAILY [facility] Administration Clopidogrel Bisulfate 75 mg 07/22/20 10:00 07/22/20 10:59 Plavix - PO 75 mg DAILY [facility] Administration Gabapentin 300 mg 07/20/20 22:00 07/22/20 10:59 Neurontin - PO 300 mg BID FIDELINA Administration Piperacillin Sod/Tazobactam 50 mls @ 100 mls/hr 07/20/20 18:00 07/22/20 17:52 Sod 3.375 gm/ Dextrose IVPB 100 mls/hr Q8H-IV [facility] Administration Protocol Insulin Aspart 1 vial 07/20/20 16:30 07/22/20 17:23 Novolog Vial Sliding Scale - SQ Not Given ACHS F[facility] Protocol Lisinopril 5 mg 07/21/20 10:00 07/22/20 11:01 Prinivil PO 5 mg DAILY [facility] Administration Metoprolol Succinate 25 mg 07/21/20 10:00 07/22/20 10:59 Toprol Xl - PO 25 mg DAILY [facility] Administration Rivaroxaban 2.5 mg 07/22/20 10:00 07/22/20 10:59 Xarelto PO 2.5 mg BID FIDELINA Administration ASSESSMENT/PLAN: 54 year old male patient with past medical history that includes HTN, HLD, DM, PVD with stent placement 1x in leg and 1x in stomach per patient, right big toe amputation, right 2nd toe partial amputation, and charcot joints, who presented to the emergency room with a right 2nd toe foul smelling wound for 2 days with erythema and with a right 3rd toe ulceration with swelling and erythema. 1. Infected right 2nd toe wound and osteomyelitis s/p amputation - Amputation done 07/20/2020 - Wound culture shows staphylococcus latex coag pos/staph aureus, but does not yet say whether it is MRSA or MSSA. Awaiting those results. Also shows Strep Agalactiae Group B and Pseudomonas Species. - Zosyn 3.375 gm 2. Normocytic Anemia - Hgb 9.8 today - Iron 29 (Low) - Ferritin 62 (WNL) - MCV 86.3 (WNL) 3. DM - A1C 6.0% - Novolog # FEN - Monitoring Electrolytes, low sodium Diabetic Diet DVT PPx - Xarelto and Plavix (on Xarelto and Plavix per [facility] trial; confirmed with patient's vascular surgeon by phone) Dispo - Awaiting Final Wound Culture Results Visit type - Emergency Visit Emergency Visit: Yes ED Registration Date: 07/18/20 Care time: The patient presented to the Emergency Department on the above date and was hospitalized for further evaluation of their emergent condition. - New Patient This patient is new to me today: No - Critical Care Critical Care patient: No - Discharge Referral Referred to [facility] Med [facility].C.: No ATTENDING PHYSICIAN STATEMENT I saw and evaluated the patient. I reviewed the resident's note and discussed the case with the resident. I agree with the resident's findings and plan as documented. SUBJECTIVE: OBJECTIVE: ASSESSMENT AND PLAN:
[2020-07-22] MEDS: ATORVASTATIN CA 20 MG TABLET (FP) PO SCH (21:44)
[2020-07-23] MEDS ORDERED: PIPERACILLIN/TAZOBACTAM 3.375 GM VIAL IVPB ONE ×2 (00:55→09:56)
[2020-07-23] MEDS ORDERED: DEXTROSE 5%-WATER - 50 ML IVPB ONE ×2 (00:55→09:56)
[2020-07-23] MEDS: PIPERACILLIN/TAZOB 3.375 GM 3.375 GM in DEXTROSE 5%-WATER - 50 ML IVPB SCH ×2 (01:31→10:20)
[2020-07-23] MEDS: INSULIN SLIDING SCALE (NOVOLOG) 1 VIAL SQ SCH ×4 (07:00→21:28)
[2020-07-23 07:47] LABS: HEMATOCRIT 28.1 % (35.4-49); HEMOGLOBIN 9.4 GM/dL (11.7-16.9); MCH 28.6 pg (25.7-33.7); MCHC 33.4 g/dl (32.0-35.9); MEAN CELL VOLUME 85.5 fl (80-96); PLATELET COUNT 232 K/MM3 (134-434); RBC 3.29 M/mm3 (4.00-5.60); RDW 14.8 % (11.9-15.9)
--- NOTE | 2020-07-23 07:54 | PN ---
Progress Note (short form) - Note Progress Note: Podiatry F/U: Seen/evaluated at bedside NAD. Pain controlled. Denies F/V/N/C/SOB/CP. Afebrile. S/p right second digit amputation, second metatarsal head resection for osteomyelitis. REVA: R foot: surgical dressing clean, dry, intact. There is no active bleeding, no bandage strikethrough. Sutures are well coapted, no dehiscence noted. There is no purulent drainage, no fluctuance, no streaking ascending cellulitis, no soft tissue crepitus, no signs of active infection. No tenderness to palpation. No ischemic changes to the foot. The foot is warm, well perfused. Small superficial eschar dorsal third digit, no erythema, no streaking cellulitis, no signs of infection. OR Bone Cx: no growth OR Wound Cx: strep B, staph species OR Path: proximal margins negative for osteomyelitis Imp: 54 year old diabetic PVD male s/p right second digit amputation, second metatarsal head resection 1. Abx per infectious disease 2. Bactroban applied to right third digit, surgical incision, followed by dry sterile dressing and CARI. Can keep the dressing clean and dry until discharge. 3. I discussed at length with patient and his the need to minimize weightbearing activity, given his non-compliance in the past. 4. Surgical margins were negative for OM, this was discussed with patient and as well. 5. [facility] plan [facility] No further podiatric intervention required. Podiatry stable for discharge. Karrie Hawkins DPM
[2020-07-23 08:10] LABS: BLOOD UREA NITROGEN 25.2 mg/dL (7-18); CALCIUM 8.3 mg/dL (8.5-10.1); CREATININE 1.4 mg/dL (0.55-1.3); POTASSIUM 4.1 mmol/L (3.5-5.1)
[2020-07-23] MEDS ORDERED: PT OWN MED DRAWER 7, Y5N ONE (09:56)
[2020-07-23] MEDS: GABAPENTIN 300 MG CAPSULE PO SCH ×2 (10:20→21:29)
[2020-07-23] MEDS: CLOPIDOGREL BISULFATE 75 MG TABLET (FP) PO SCH (10:20)
[2020-07-23] MEDS: metoPROLOL SUCCINATE 25 MG TAB.SR.24H (FP) PO SCH (10:20)
[2020-07-23] MEDS: CHOLECALCIFEROL (VIT D3) 1,000 UNIT (25 MCG) TABLET PO SCH (10:21)
[2020-07-23] MEDS: LISINOPRIL 5 MG TABLET (FP) PO SCH (10:21)
[2020-07-23] MEDS: RIVAROXABAN 2.5 MG TABLET PO SCH ×2 (10:21→21:29)
--- NOTE | 2020-07-23 13:28 | PN ---
Progress Note, Physician History of Present Illness: stable no new issues - Current Medication List Current Medications: Active Medications Atorvastatin Calcium (Lipitor -) 20 mg PO HS [facility] Last Admin: 07/22/20 21:44 Dose: 20 mg Documented by: Cholecalciferol (Vitamin D3 -) 1,000 unit PO DAILY [facility] Last Admin: 07/23/20 10:21 Dose: 1,000 unit Documented by: Clopidogrel Bisulfate (Plavix -) 75 mg PO DAILY [facility] Last Admin: 07/23/20 10:20 Dose: 75 mg Documented by: Gabapentin (Neurontin -) 300 mg PO BID [facility] Last Admin: 07/23/20 10:20 Dose: 300 mg Documented by: Insulin Aspart (Novolog Vial Sliding Scale -) 1 vial SQ [facility]; Protocol Last Admin: 07/23/20 11:18 Dose: 2 units Documented by: Lisinopril (Prinivil) 5 mg PO DAILY [facility] Last Admin: 07/23/20 10:21 Dose: 5 mg Documented by: Metoprolol Succinate (Toprol Xl -) 25 mg PO DAILY [facility] Last Admin: 07/23/20 10:20 Dose: 25 mg Documented by: Rivaroxaban (Xarelto) 2.5 mg PO BID [facility] Last Admin: 07/23/20 10:21 Dose: 2.5 mg Documented by: - Objective Vital Signs: Vital Signs Temperature 98.0 F 07/23/20 10:00 Pulse Rate 71 07/23/20 10:00 Respiratory Rate 18 07/23/20 10:00 Blood Pressure 140/79 07/23/20 10:00 O2 Sat by Pulse Oximetry (%) 98 07/23/20 10:00 Constitutional: Yes: No Distress, Calm Cardiovascular: Yes: S1, S2 Respiratory: Yes: Regular, CTA Bilaterally Gastrointestinal: Yes: Normal Bowel Sounds, Soft Musculoskeletal: Yes: WNL Extremities: Yes: Other Wound/Incision: Yes: Dressing Dry and Intact Neurological: Yes: Alert, Oriented Labs: CBC, BMP 07/23/20 07:10 07/23/20 07:10 INR, PTT INR 1.21 (0.83-1.09) H 07/18/20 01:10 Assessment/Plan Problem List - Problems (1) Diabetic foot infection Code(s): E11.628 - TYPE 2 DIABETES MELLITUS WITH OTHER SKIN COMPLICATIONS; L08.9 - LOCAL INFECTION OF THE SKIN AND SUBCUTANEOUS TISSUE, UNSP (2) CKD (chronic kidney disease) Code(s): N18.9 - CHRONIC KIDNEY DISEASE, UNSPECIFIED Qualifiers: Chronic kidney disease stage: stage 2 (mild) Qualified Code(s): N18.2 - Chronic kidney disease, stage 2 (mild) (3) HTN (hypertension) Code(s): I10 - ESSENTIAL (PRIMARY) HYPERTENSION 4 pvd 5 osteo of the foot plan cx results noted pt will need abx for 6 weeks i am going to put him on combination of iv ceftriaxone and smita levaquin will d/w the team
[2020-07-23] MEDS ORDERED: DEXTROSE 5%-WATER 100 ML IVPB ONE (13:43)
[2020-07-23] MEDS: CEFTRIAXONE 2 GM in DEXTROSE 5%-WATER 100 ML IVPB SCH (13:51)
--- NOTE | 2020-07-23 13:58 | PN ---
Teaching Attending Note Name of Resident: Miki Valenzuela ATTENDING PHYSICIAN STATEMENT I saw and evaluated the patient. I reviewed the resident's note and discussed the case with the resident. I agree with the resident's findings and plan as documented. SUBJECTIVE: no pain, no complaints , no fever or chills. OBJECTIVE: NAD, awake, alert, flat affect Lungs: CATB CV: RRR Ext: No edema or erythema on legs. R foot covered in a dressing. instructions from podiatry to leave intact ASSESSMENT AND PLAN: 54 y/o man with h/o T2DM, PVD, osteomyelitis distal phalanx,right second digit partial amputation, PVd s/p stents presents to the ER with ulcer and drainage form R 2nd toe 1- OM of proximal phalanx of R 2nd toe. s/p proximal phalanx and metatarsal head amputation 07/20 2- H/o DM 3- PVD 4- Contamination with Coag neg staph 5- CKD Plan: -final wound cx reviewed. bone cx with B hemolytic strep. - d/w dr. Wu. - ceftriaxone x 6 weeks . and levaquin x 2 weeks. 250 levaquin po daily starting tomorrow - pain control - cont plavix and xarelto at home dose 2.5 BID for PVD - cont neurontin Dispo: HLOC , will need PICC and IV Abx at home to be arranged on Saturday
--- NOTE | 2020-07-23 17:59 | PN ---
Progress Note (short form) - Note Progress Note: Problems 1. CKD 2. dm 3. htn 4. hld 5. osteo 6. pvd 7. proteinuria Active Medications Atorvastatin Calcium (Lipitor -) 20 mg PO HS [facility] Last Admin: 07/22/20 21:44 Dose: 20 mg Documented by: Cholecalciferol (Vitamin D3 -) 1,000 unit PO DAILY [facility] Last Admin: 07/23/20 10:21 Dose: 1,000 unit Documented by: Clopidogrel Bisulfate (Plavix -) 75 mg PO DAILY [facility] Last Admin: 07/23/20 10:20 Dose: 75 mg Documented by: Gabapentin (Neurontin -) 300 mg PO BID [facility] Last Admin: 07/23/20 10:20 Dose: 300 mg Documented by: Ceftriaxone Sodium 2 gm/ (Dextrose) 100 mls @ 200 mls/hr IVPB DAILY [facility]; Protocol Last Admin: 07/23/20 13:51 Dose: 200 mls/hr Documented by: Insulin Aspart (Novolog Vial Sliding Scale -) 1 vial SQ ACHS [facility]; Protocol Last Admin: 07/23/20 16:29 Dose: 2 units Documented by: Levofloxacin (Levaquin -) 250 mg PO DAILY@0600 [facility] Lisinopril (Prinivil) 5 mg PO DAILY [facility] Last Admin: 07/23/20 10:21 Dose: 5 mg Documented by: Metoprolol Succinate (Toprol Xl -) 25 mg PO DAILY [facility] Last Admin: 07/23/20 10:20 Dose: 25 mg Documented by: Rivaroxaban (Xarelto) 2.5 mg PO BID [facility] Last Admin: 07/23/20 10:21 Dose: 2.5 mg Documented by: Last Vital Signs Temp Pulse Resp BP Pulse Ox 98.0 F 71 18 140/79 98 07/23/20 10:00 07/23/20 10:00 07/23/20 10:00 07/23/20 10:00 07/23/20 10:00 alert in nad Lungs cler Heart reg Abd soft nontender Ext no edema right foot osteo- dressed CBC, BMP 07/23/20 07:10 07/23/20 07:10 IMP- CKD- renal function stable DM Osteomyelitis Plan - cont amador - avoid nephrotoxins - wound care - abx per medical team - avoid nsaids - podiatry/vascular follow up - will follow prn
--- NOTE | 2020-07-23 21:08 | PN ---
Physical Exam: SUBJECTIVE: Patient seen and examined at bedside. The patient reports feeling fine. He denies fever/chills, shortness of breath, bowel or bladder problems, dysuria, pain, and weakness. OBJECTIVE: Vital Signs Period Temp Pulse Resp BP Sys/[place] Pulse Ox Last 24 Hr 98.0 F-98.2 F 67-71 18-18 140-153/77-79 96-98 GENERAL: The patient is awake, alert, and fully oriented, in no acute distress. HEAD: Normal with no signs of trauma. EYES: Extraocular movements intact. No ptosis. ENT: Ears normal, nares patent, oropharynx clear without exudates, moist mucous membranes. NECK: Trachea midline, full range of motion, supple. LUNGS: Breath sounds equal, clear to auscultation bilaterally, no wheezes, no crackles, no accessory muscle use. HEART: Regular rate and rhythm, S1, S2 without murmur, rub or gallop. ABDOMEN: Soft, nontender, high BMI, normoactive bowel sounds, no guarding, no rebound, no masses. EXTREMITIES: Weak but palpable pulses bilaterally in feet, warm, well-perfused, mild edema bilaterally. Charcot feet appearance bilaterally. Right foot completely bandaged with the patient refusing for me to take the bandage off to examine the wound. NEUROLOGICAL: Normal speech, gait not observed. Numbness in toes bilaterally and numbness in his feet on both the dorsal and plantar aspects. Sensation intact above the feet bilaterally and in the upper extremities bilaterally. +5/5 muscle strength with dorsiflexion and planarflexion of the feet bilaterally. PSYCH: Normal mood, normal affect. SKIN: Warm, dry, normal turgor. Laboratory Results - last 24 hr 07/23/20 07/23/20 07/23/20 06:44 07:10 07:10 WBC 8.0 RBC 3.29 L Hgb 9.4 L Hct 28.1 L MCV 85.5 MCH 28.6 MCHC 33.4 RDW 14.8 Plt Count 232 MPV 8.0 Sodium 138 Potassium 4.1 Chloride 106 Carbon Dioxide 26 Anion Gap 7 L BUN 25.2 H Creatinine 1.4 H Est GFR (CKD-EPI)AfAm 65.09 Est GFR (CKD-EPI)NonAf 56.16 POC Glucometer 150 Random Glucose 150 H Calcium 8.3 L 07/23/20 07/23/20 11:16 16:27 WBC RBC Hgb Hct MCV MCH MCHC RDW Plt Count MPV Sodium Potassium Chloride Carbon Dioxide Anion Gap BUN Creatinine Est GFR (CKD-EPI)AfAm Est GFR (CKD-EPI)NonAf POC Glucometer 207 217 Random Glucose Calcium Active Medications Generic Name Dose Route Start Last Admin Trade Name Freq PRN Reason Stop Dose Admin Atorvastatin Calcium 20 mg 07/20/20 22:00 07/22/20 21:44 Lipitor - PO 20 mg HS FIDELINA Administration Cholecalciferol 1,000 unit 07/21/20 10:00 07/23/20 10:21 Vitamin D3 - PO 1,000 unit DAILY FIDELINA Administration Clopidogrel Bisulfate 75 mg 07/22/20 10:00 07/23/20 10:20 Plavix - PO 75 mg DAILY FIDELINA Administration Gabapentin 300 mg 07/20/20 22:00 07/23/20 10:20 Neurontin - PO 300 mg BID FIDELINA Administration Ceftriaxone Sodium 2 gm/ 100 mls @ 200 mls/hr 07/23/20 13:30 07/23/20 13:51 Dextrose IVPB 200 mls/hr DAILY FIDELINA Administration Protocol Insulin Aspart 1 vial 07/20/20 16:30 07/23/20 16:29 Novolog Vial Sliding Scale - SQ 2 units ACHS FIDELINA Administration Protocol Levofloxacin 250 mg 07/24/20 06:00 Levaquin - PO DAILY@0600 FIDELINA Lisinopril 5 mg 07/21/20 10:00 07/23/20 10:21 Prinivil PO 5 mg DAILY FIDELINA Administration Metoprolol Succinate 25 mg 07/21/20 10:00 07/23/20 10:20 Toprol Xl - PO 25 mg DAILY FIDELINA Administration Rivaroxaban 2.5 mg 07/22/20 10:00 07/23/20 10:21 Xarelto PO 2.5 mg BID FIDELINA Administration ASSESSMENT/PLAN: 54 year old male patient with past medical history that includes HTN, HLD, DM, PVD with stent placement 1x in leg and 1x in stomach per patient, right big toe amputation, right 2nd toe partial amputation, and charcot joints, who presented to the emergency room with a right 2nd toe foul smelling wound for 2 days with erythema and with a right 3rd toe ulceration with swelling and erythema. 1. Infected right 2nd toe wound and osteomyelitis s/p amputation - Amputation done 07/20/2020 - Wound culture shows staphylococcus latex coag pos/staph aureus, that is not MRSA. Also shows Strep Agalactiae Group B and Pseudomonas Species. - Needs PICC line for IV ceftriaxone antibiotics for 6 weeks - Also oral levaquin antibiotics for 2 weeks 2. Normocytic Anemia - Hgb 9.4 today - Iron 29 (Low) - Ferritin 62 (WNL) - MCV 86.3 (WNL) 3. DM - A1C 6.0% - Novolog # FEN - Monitoring Electrolytes, low sodium Diabetic Diet DVT PPx - Xarelto and Plavix (on Xarelto and Plavix per [facility] trial; confirmed with patient's vascular surgeon by phone) Dispo - Discharge after PICC line insertion Visit type - Emergency Visit Emergency Visit: Yes ED Registration Date: 07/18/20 Care time: The patient presented to the Emergency Department on the above date and was hospitalized for further evaluation of their emergent condition. - New Patient This patient is new to me today: No - Critical Care Critical Care patient: No - Discharge Referral Referred to [facility] Med P.C.: No ATTENDING PHYSICIAN STATEMENT I saw and evaluated the patient. I reviewed the resident's note and discussed the case with the resident. I agree with the resident's findings and plan as documented. SUBJECTIVE: OBJECTIVE: ASSESSMENT AND PLAN:
[2020-07-23] MEDS: ATORVASTATIN CA 20 MG TABLET (FP) PO SCH (21:28)
[2020-07-24] MEDS: INSULIN SLIDING SCALE (NOVOLOG) 1 VIAL SQ SCH ×4 (06:35→22:06)
[2020-07-24] MEDS ORDERED: PT OWN MED DRAWER 7, Y5N ONE ×2 (09:25→20:33)
[2020-07-24] MEDS ORDERED: DEXTROSE 5%-WATER 100 ML IVPB ONE (09:25)
[2020-07-24] MEDS: metoPROLOL SUCCINATE 25 MG TAB.SR.24H (FP) PO SCH (09:59)
[2020-07-24] MEDS: CLOPIDOGREL BISULFATE 75 MG TABLET (FP) PO SCH (10:00)
[2020-07-24] MEDS: RIVAROXABAN 2.5 MG TABLET PO SCH ×2 (10:00→22:01)
[2020-07-24] MEDS: CHOLECALCIFEROL (VIT D3) 1,000 UNIT (25 MCG) TABLET PO SCH (10:00)
[2020-07-24] MEDS: LISINOPRIL 5 MG TABLET (FP) PO SCH (10:00)
[2020-07-24] MEDS: GABAPENTIN 300 MG CAPSULE PO SCH ×2 (10:00→22:01)
[2020-07-24] MEDS: CEFTRIAXONE 2 GM in DEXTROSE 5%-WATER 100 ML IVPB SCH (10:01)
[2020-07-24] MEDS ORDERED: INSULIN (NOVOLOG) ASPART 100 UNITS/ML 10ML VIAL ONE (11:02)
--- NOTE | 2020-07-24 12:44 | PN ---
Progress Note, Physician History of Present Illness: stable no new issues - Current Medication List Current Medications: Active Medications Atorvastatin Calcium (Lipitor -) 20 mg PO HS [facility] Last Admin: 07/23/20 21:28 Dose: 20 mg Documented by: Cholecalciferol (Vitamin D3 -) 1,000 unit PO DAILY [facility] Last Admin: 07/24/20 10:00 Dose: 1,000 unit Documented by: Clopidogrel Bisulfate (Plavix -) 75 mg PO DAILY [facility] Last Admin: 07/24/20 10:00 Dose: 75 mg Documented by: Gabapentin (Neurontin -) 300 mg PO BID [facility] Last Admin: 07/24/20 10:00 Dose: 300 mg Documented by: Ceftriaxone Sodium 2 gm/ (Dextrose) 100 mls @ 200 mls/hr IVPB DAILY [facility]; Protocol Last Admin: 07/24/20 10:01 Dose: 200 mls/hr Documented by: Insulin Aspart (Novolog Vial Sliding Scale -) 1 vial SQ ACHS [facility]; Protocol Last Admin: 07/24/20 11:07 Dose: 2 units Documented by: Levofloxacin (Levaquin -) 250 mg PO DAILY@0600 [facility] Last Admin: 07/24/20 06:36 Dose: 250 mg Documented by: Lisinopril (Prinivil) 5 mg PO DAILY [facility] Last Admin: 07/24/20 10:00 Dose: 5 mg Documented by: Metoprolol Succinate (Toprol Xl -) 25 mg PO DAILY [facility] Last Admin: 07/24/20 09:59 Dose: 25 mg Documented by: Rivaroxaban (Xarelto) 2.5 mg PO BID [facility] Last Admin: 07/24/20 10:00 Dose: 2.5 mg Documented by: - Objective Vital Signs: Vital Signs Temperature 97.8 F 07/24/20 08:57 Pulse Rate 86 07/24/20 08:57 Respiratory Rate 20 07/24/20 09:00 Blood Pressure 119/63 07/24/20 08:57 O2 Sat by Pulse Oximetry (%) 98 07/24/20 09:00 Constitutional: Yes: No Distress, Calm Cardiovascular: Yes: S1, S2 Respiratory: Yes: Regular, CTA Bilaterally Gastrointestinal: Yes: Normal Bowel Sounds, Soft Musculoskeletal: Yes: WNL Extremities: Yes: Other Wound/Incision: Yes: Dressing Dry and Intact Neurological: Yes: Alert, Oriented Psychiatric: Yes: Alert, Oriented Labs: CBC, BMP 07/23/20 07:10 07/23/20 07:10 INR, PTT INR 1.21 (0.83-1.09) H 07/18/20 01:10 Assessment/Plan Problem List - Problems (1) Diabetic foot infection Code(s): E11.628 - TYPE 2 DIABETES MELLITUS WITH OTHER SKIN COMPLICATIONS; L08.9 - LOCAL INFECTION OF THE SKIN AND SUBCUTANEOUS TISSUE, UNSP (2) CKD (chronic kidney disease) Code(s): N18.9 - CHRONIC KIDNEY DISEASE, UNSPECIFIED Qualifiers: Chronic kidney disease stage: stage 2 (mild) Qualified Code(s): N18.2 - Chronic kidney disease, stage 2 (mild) (3) HTN (hypertension) Code(s): I10 - ESSENTIAL (PRIMARY) HYPERTENSION 4 pvd 5 osteo of the foot plan cx results noted pt will need abx for 6 weeks iv ceftriaxone and smita levaquin will d/w the team
--- NOTE | 2020-07-24 15:22 | PN ---
Progress Note (short form) - Note Progress Note: Subjective: no fever or chills. No LONDONO , no pain . Objective: Vital Signs: Last Vital Signs Temp Pulse Resp BP Pulse Ox 99.2 F 80 20 137/71 98 07/24/20 13:47 07/24/20 13:47 07/24/20 13:47 07/24/20 13:47 07/24/20 13:47 Laboratory Results - last 24 hr 07/23/20 07/23/20 07/24/20 16:27 21:27 06:34 POC Glucometer 217 223 158 07/24/20 11:00 POC Glucometer 231 Physical Exam: NAD, awake, alert, flat affect Lungs: CATB CV: RRR Ext: No edema or erythema on legs. R foot covered in a dressing. instructions from podiatry to leave intact ASSESSMENT AND PLAN: 54 y/o man with h/o T2DM, PVD, osteomyelitis distal phalanx,right second digit partial amputation, PVd s/p stents presents to the ER with ulcer and drainage form R 2nd toe 1- OM of proximal phalanx of R 2nd toe. s/p proximal phalanx and metatarsal head amputation 07/20 2- H/o DM 3- PVD 4- Contamination with Coag neg staph 5- CKD Plan: - Tunnle cath in am for IV abx - ceftriaxone x 6 weeks . and levaquin x 2 weeks. - pain control - cont plavix and xarelto at home dose 2.5 BID for PVD - cont neurontin hopefully we can arrange his home abx tomorrow Visit type - Emergency Visit Emergency Visit: Yes ED Registration Date: 07/18/20 Care time: The patient presented to the Emergency Department on the above date and was hospitalized for further evaluation of their emergent condition. - New Patient This patient is new to me today: No - Critical Care Critical Care patient: No
[2020-07-24] MEDS: ATORVASTATIN CA 20 MG TABLET (FP) PO SCH (22:01)
[2020-07-25] MEDS: INSULIN SLIDING SCALE (NOVOLOG) 1 VIAL SQ SCH ×2 (06:41→11:31)
[2020-07-25] MEDS ORDERED: PT OWN MED DRAWER 7, Y5N ONE (10:11)
[2020-07-25] MEDS ORDERED: DEXTROSE 5%-WATER 100 ML IVPB ONE (10:11)
[2020-07-25] MEDS: CEFTRIAXONE 2 GM in DEXTROSE 5%-WATER 100 ML IVPB SCH (10:15)
[2020-07-25] MEDS: CLOPIDOGREL BISULFATE 75 MG TABLET (FP) PO SCH (10:15)
[2020-07-25] MEDS: GABAPENTIN 300 MG CAPSULE PO SCH (10:16)
[2020-07-25] MEDS: RIVAROXABAN 2.5 MG TABLET PO SCH (10:16)
[2020-07-25] MEDS: LISINOPRIL 5 MG TABLET (FP) PO SCH (10:16)
[2020-07-25] MEDS: CHOLECALCIFEROL (VIT D3) 1,000 UNIT (25 MCG) TABLET PO SCH (10:17)
[2020-07-25] MEDS: metoPROLOL SUCCINATE 25 MG TAB.SR.24H (FP) PO SCH (10:17)
[2020-07-25] MEDS ORDERED: INSULIN (NOVOLOG) ASPART 100 UNITS/ML 10ML VIAL ONE (11:30)
--- NOTE | 2020-07-25 12:57 | PN ---
Progress Note, Physician History of Present Illness: stable no new issues - Current Medication List Current Medications: Active Medications Atorvastatin Calcium (Lipitor -) 20 mg PO HS [facility] Last Admin: 07/24/20 22:01 Dose: 20 mg Documented by: Cholecalciferol (Vitamin D3 -) 1,000 unit PO DAILY [facility] Last Admin: 07/25/20 10:17 Dose: 1,000 unit Documented by: Clopidogrel Bisulfate (Plavix -) 75 mg PO DAILY [facility] Last Admin: 07/25/20 10:15 Dose: 75 mg Documented by: Gabapentin (Neurontin -) 300 mg PO BID [facility] Last Admin: 07/25/20 10:16 Dose: 300 mg Documented by: Ceftriaxone Sodium 2 gm/ (Dextrose) 100 mls @ 200 mls/hr IVPB DAILY [facility]; Protocol Last Admin: 07/25/20 10:15 Dose: 200 mls/hr Documented by: Insulin Aspart (Novolog Vial Sliding Scale -) 1 vial SQ ACHS [facility]; Protocol Last Admin: 07/25/20 11:31 Dose: 2 units Documented by: Levofloxacin (Levaquin -) 250 mg PO DAILY@0600 [facility] Last Admin: 07/25/20 06:36 Dose: 250 mg Documented by: Lisinopril (Prinivil) 5 mg PO DAILY [facility] Last Admin: 07/25/20 10:16 Dose: 5 mg Documented by: Metoprolol Succinate (Toprol Xl -) 25 mg PO DAILY [facility] Last Admin: 07/25/20 10:17 Dose: 25 mg Documented by: Rivaroxaban (Xarelto) 2.5 mg PO BID [facility] Last Admin: 07/25/20 10:16 Dose: 2.5 mg Documented by: - Objective Vital Signs: Vital Signs Temperature 97.8 F 07/25/20 10:00 Pulse Rate 65 07/25/20 10:00 Respiratory Rate 20 07/25/20 10:00 Blood Pressure 168/75 07/25/20 10:00 O2 Sat by Pulse Oximetry (%) 99 07/25/20 10:00 Constitutional: Yes: No Distress, Calm Cardiovascular: Yes: S1, S2 Respiratory: Yes: Regular, CTA Bilaterally Gastrointestinal: Yes: Normal Bowel Sounds, Soft Musculoskeletal: Yes: Other Extremities: Yes: Other Neurological: Yes: Alert, Oriented Psychiatric: Yes: Alert, Oriented Labs: CBC, BMP 07/23/20 07:10 07/23/20 07:10 INR, PTT INR 1.21 (0.83-1.09) H 07/18/20 01:10 Assessment/Plan Problem List - Problems (1) Diabetic foot infection Code(s): E11.628 - TYPE 2 DIABETES MELLITUS WITH OTHER SKIN COMPLICATIONS; L08.9 - LOCAL INFECTION OF THE SKIN AND SUBCUTANEOUS TISSUE, UNSP (2) CKD (chronic kidney disease) Code(s): N18.9 - CHRONIC KIDNEY DISEASE, UNSPECIFIED Qualifiers: Chronic kidney disease stage: stage 2 (mild) Qualified Code(s): N18.2 - Chronic kidney disease, stage 2 (mild) (3) HTN (hypertension) Code(s): I10 - ESSENTIAL (PRIMARY) HYPERTENSION 4 pvd 5 osteo of the foot plan cx results noted pt will need abx for 6 weeks iv ceftriaxone and smita levaquin will d/w the team
--- NOTE | 2020-07-25 14:05 | PN ---
Teaching Attending Note Name of Resident: Chrissy Najera ATTENDING PHYSICIAN STATEMENT I saw and evaluated the patient. I reviewed the resident's note and discussed the case with the resident. I agree with the resident's findings and plan as documented. SUBJECTIVE: No fever or chills. No LONDONO .no SOB . no pain . No events over night OBJECTIVE: NAD, awake, alert, flat affect Lungs: CATB CV: RRR Ext: No edema or erythema on legs. R foot covered in a dressing. ASSESSMENT AND PLAN: 54 y/o man with h/o T2DM, PVD, osteomyelitis distal phalanx,right second digit partial amputation, PVd s/p stents presents to the ER with ulcer and drainage form R 2nd toe 1- OM of proximal phalanx of R 2nd toe. s/p proximal phalanx and metatarsal head amputation 07/20 2- H/o DM 3- PVD 4- Contamination with Coag neg staph 5- CKD Plan: - Tunneled cath today - cont ceftriaxone for 36 more days ( 6 weeks of strep coverage from the day of amputation given that zosyn was on ) - cont levaquin x 2 weeks - ESR, and CMP weekly while on Abx - cont plavix and xarelto at home dose ( confirmed 2.5 BID for PVD ) - cont neurontin - cont home DM meds - f/u podiatry, wound care, and PCP dc home today . tomorrow he will go to wound care where his wound will be changed and he will be given wound care instructions. dressing not to be changed today
--- NOTE | 2020-07-25 14:19 | PN ---
Physical Exam: SUBJECTIVE: Patient seen and examined. No acute events overnight. Pt has no pain. Denies fevers, chills, shortness of breath, chest pain, abdominal pain. Pt has persistent numbness of b/l feet that has not changed. OBJECTIVE: Vital Signs Period Temp Pulse Resp BP Sys/[place] Pulse Ox Last 24 Hr 97.8 F-98.1 F 62-65 20-20 149-168/59-75 98-99 GENERAL: The patient is awake, alert, and fully oriented, in no acute distress. HEENT: NCAT, EOMI. Moist mucus membranes. LUNGS: Breath sounds equal, clear to auscultation bilaterally, no wheezes HEART: Regular rate and rhythm, S1, S2 without murmur. ABDOMEN: Soft, nontender, nondistended, bowel sounds present in all 4 quadrants. EXTREMITIES: warm, well-perfused, no edema. R foot bandaged. Dry. No active drainage or bleeding. SKIN: Warm, dry. Laboratory Last Values WBC 8.0 K/mm3 (4.0-10.0) 07/23/20 07:10 RBC 3.29 M/mm3 (4.00-5.60) L 07/23/20 07:10 Hgb 9.4 GM/dL (11.7-16.9) L 07/23/20 07:10 Hct 28.1 % (35.4-49) L 07/23/20 07:10 MCV 85.5 fl (80-96) 07/23/20 07:10 MCH 28.6 pg (25.7-33.7) 07/23/20 07:10 MCHC 33.4 g/dl (32.0-35.9) 07/23/20 07:10 RDW 14.8 % (11.9-15.9) 07/23/20 07:10 Plt Count 232 K/MM3 (134-434) 07/23/20 07:10 MPV 8.0 fl (7.5-11.1) 07/23/20 07:10 Absolute Neuts (auto) 5.3 K/mm3 (1.5-8.0) 07/22/20 07:34 Neutrophils % 65.2 % (42.8-82.8) 07/22/20 07:34 Lymphocytes % 20.3 % (8-40) D 07/22/20 07:34 Monocytes % 11.9 % (3.8-10.2) H 07/22/20 07:34 Eosinophils % 2.2 % (0-4.5) 07/22/20 07:34 Basophils % 0.4 % (0-2.0) 07/22/20 07:34 Nucleated RBC % 0 % (0-0) 07/22/20 07:34 Retic Count 1.77 % (0.5-1.5) H 07/18/20 11:33 PT with INR 14.30 SEC (9.7-13.0) H 07/18/20 01:10 INR 1.21 (0.83-1.09) H 07/18/20 01:10 PTT (Actin FS) 38.2 SECONDS (25.2-36.5) H 07/18/20 01:10 Sodium 138 mmol/L (136-145) 07/23/20 07:10 Potassium 4.1 mmol/L (3.5-5.1) 07/23/20 07:10 Chloride 106 mmol/L (98-107) 07/23/20 07:10 Carbon Dioxide 26 mmol/L (21-32) 07/23/20 07:10 Anion Gap 7 MMOL/L (8-16) L 07/23/20 07:10 BUN 25.2 mg/dL (7-18) H 07/23/20 07:10 Creatinine 1.4 mg/dL (0.55-1.3) H 07/23/20 07:10 Est GFR (CKD-EPI)AfAm 65.09 07/23/20 07:10 Est GFR (CKD-EPI)NonAf 56.16 07/23/20 07:10 POC Glucometer 208 UNITS (80-120) 07/25/20 11:26 Random Glucose 150 mg/dL (74-106) H 07/23/20 07:10 Lactic Acid 0.9 mmol/L (0.4-2.0) 07/18/20 01:10 Calcium 8.3 mg/dL (8.5-10.1) L 07/23/20 07:10 Phosphorus 3.9 mg/dL (2.5-4.9) 07/22/20 07:34 Magnesium 2.1 mg/dL (1.8-2.4) 07/22/20 07:34 Iron 29 ug/dL (50-175) L 07/18/20 11:33 Ferritin 62.3 ng/ml (8-388) 07/18/20 11:33 Total Bilirubin 0.3 mg/dL (0.2-1) 07/22/20 07:34 AST 11 U/L (15-37) L 07/22/20 07:34 ALT 14 U/L (13-61) 07/22/20 07:34 Alkaline Phosphatase 72 U/L (45-117) 07/22/20 07:34 Creatine Kinase 95 U/L (26-308) 07/18/20 01:10 Troponin I < 0.02 ng/ml (0.00-0.05) 07/18/20 01:10 Total Protein 6.4 g/dl (6.4-8.2) 07/22/20 07:34 Albumin 2.7 g/dl (3.4-5.0) L 07/22/20 07:34 Urine Color Yellow 07/18/20 02:41 Urine Appearance Clear 07/18/20 02:41 Urine pH 5.0 (5.0-8.0) 07/18/20 02:41 Ur Specific S[place]ag 1.005 (1.010-1.035) L 07/18/20 02:41 Urine Protein N (NEGATIVE) 07/18/20 02:41 Urine Glucose (UA) 3+ (NEGATIVE) H 07/18/20 02:41 Urine Ketones Trace (NEGATIVE) H 07/18/20 02:41 Urine Blood N (NEGATIVE) 07/18/20 02:41 Urine Nitrite Negative (NEGATIVE) 07/18/20 02:41 Urine Bilirubin Negative (NEGATIVE) 07/18/20 02:41 Urine Urobilinogen 0.2 mg/dL (0.2-1.0) 07/18/20 02:41 Ur Leukocyte Esterase N (NEGATIVE) 07/18/20 02:41 COVID-19 (ELIAS) Not detected (Not Detected) 07/18/20 08:01 Active Medications Atorvastatin Calcium (Lipitor -) 20 mg PO HS [facility] Last Admin: 07/24/20 22:01 Dose: 20 mg Documented by: Cholecalciferol (Vitamin D3 -) 1,000 unit PO DAILY [facility] Last Admin: 07/25/20 10:17 Dose: 1,000 unit Documented by: Clopidogrel Bisulfate (Plavix -) 75 mg PO DAILY [facility] Last Admin: 07/25/20 10:15 Dose: 75 mg Documented by: Gabapentin (Neurontin -) 300 mg PO BID [facility] Last Admin: 07/25/20 10:16 Dose: 300 mg Documented by: Ceftriaxone Sodium 2 gm/ (Dextrose) 100 mls @ 200 mls/hr IVPB DAILY [facility]; Protocol Last Admin: 07/25/20 10:15 Dose: 200 mls/hr Documented by: Insulin Aspart (Novolog Vial Sliding Scale -) 1 vial SQ ACHS [facility]; Protocol Last Admin: 07/25/20 11:31 Dose: 2 units Documented by: Levofloxacin (Levaquin -) 250 mg PO DAILY@0600 [facility] Last Admin: 07/25/20 06:36 Dose: 250 mg Documented by: Lisinopril (Prinivil) 5 mg PO DAILY [facility] Last Admin: 07/25/20 10:16 Dose: 5 mg Documented by: Metoprolol Succinate (Toprol Xl -) 25 mg PO DAILY [facility] Last Admin: 07/25/20 10:17 Dose: 25 mg Documented by: Rivaroxaban (Xarelto) 2.5 mg PO BID [facility] Last Admin: 07/25/20 10:16 Dose: 2.5 mg Documented by: ASSESSMENT/PLAN: 54 year old male patient with past medical history that includes HTN, HLD, DM, PVD s/p stent placement, right big toe amputation, right 2nd toe partial amputation, and charcot joints, who presented to the ED w/ R 2nd toe foul smelling wound for 2 days with erythema and with a R 3rd toe ulceration with swelling and erythema. He is POD#5 of amputation. Infected right 2nd toe wound and osteomyelitis s/p amputation - Amputation done 07/20/2020. POD #5. - Wound culture shows staph aureus, Strep Agalactiae Group B and Pseudomonas Species. - PICC line placed today. - Discharge w/ IV ceftriaxone for 6 weeks - Discharge w/ PO levaquin for 2 weeks - f/u w/ podiatry tomorrow. Recommended to apply bactroban to incision site and third digit, followed by dry sterile dressing with sterile gauze, kerlix and amador wrap. Partial WB R heel with surgical offloading shoe. HTN - c/w lisinopril, metoprolol HLD - c/w atorvastatin Elevated Creatinine - Renal consulted. Recommended c/w ACEi, avoid nephrotoxic medication if possible. - f/u as outpatient. DM - ISS + BGM FEN - Monitor and replete electrolytes - low sodium and diabetic diet PPx -DVT: Xarelto and Plavix Dispo - Discharge home. Visit type - Emergency Visit Emergency Visit: Yes ED Registration Date: 07/18/20 Care time: The patient presented to the Emergency Department on the above date and was hospitalized for further evaluation of their emergent condition. - New Patient This patient is new to me today: Yes Date on this admission: 07/25/20 - Critical Care Critical Care patient: No ATTENDING PHYSICIAN STATEMENT I saw and evaluated the patient. I reviewed the resident's note and discussed the case with the resident. I agree with the resident's findings and plan as documented. SUBJECTIVE: OBJECTIVE: ASSESSMENT AND PLAN:
--- NOTE | 2020-07-25 15:00 | PN ---
Progress Note (short form) - Note Progress Note: Podiatry Brief Note: 54 year old diabetic PVD male s/p right second digit amputation, second metatarsal head resection for acute osteomyelitis. Bone culture (+) beta strep. Discussed case at length with infectious disease Dr. Wu; plan for IV ceftriaxone x 6 weeks. Please apply bactroban to incision site and third digit, followed by dry sterile dressing with sterile gauze, kerlix and amador wrap. Partial WB R heel with surgical offloading shoe. Patient to follow up tomorrow in wound healing center, . Podiatry stable for discharge. Karrie Hawkins DPM
[2020-07-25 15:24] VITALS: BP 156/73; PULSE 70; TEMP 99.1
--- NOTE | 2020-07-25 15:57 | PN ---
Progress Note, Physician History of Present Illness: Pt seen and examined at bedside. He is awake and alert. He denies dysuria or hematuria. - Current Medication List Current Medications: Active Medications Atorvastatin Calcium (Lipitor -) 20 mg PO HS [facility] Last Admin: 07/24/20 22:01 Dose: 20 mg Documented by: Cholecalciferol (Vitamin D3 -) 1,000 unit PO DAILY [facility] Last Admin: 07/25/20 10:17 Dose: 1,000 unit Documented by: Clopidogrel Bisulfate (Plavix -) 75 mg PO DAILY [facility] Last Admin: 07/25/20 10:15 Dose: 75 mg Documented by: Gabapentin (Neurontin -) 300 mg PO BID [facility] Last Admin: 07/25/20 10:16 Dose: 300 mg Documented by: Ceftriaxone Sodium 2 gm/ (Dextrose) 100 mls @ 200 mls/hr IVPB DAILY [facility]; Protocol Last Admin: 07/25/20 10:15 Dose: 200 mls/hr Documented by: Insulin Aspart (Novolog Vial Sliding Scale -) 1 vial SQ ACHS [facility]; Protocol Last Admin: 07/25/20 11:31 Dose: 2 units Documented by: Levofloxacin (Levaquin -) 250 mg PO DAILY@0600 [facility] Last Admin: 07/25/20 06:36 Dose: 250 mg Documented by: Lisinopril (Prinivil) 5 mg PO DAILY [facility] Last Admin: 07/25/20 10:16 Dose: 5 mg Documented by: Metoprolol Succinate (Toprol Xl -) 25 mg PO DAILY [facility] Last Admin: 07/25/20 10:17 Dose: 25 mg Documented by: Mupirocin (Bactroban 2% Ointment -) 1 applic TP DAILY [facility] Rivaroxaban (Xarelto) 2.5 mg PO BID [facility] Last Admin: 07/25/20 10:16 Dose: 2.5 mg Documented by: - Objective Vital Signs: Vital Signs Temperature 99.1 F 07/25/20 14:00 Pulse Rate 70 07/25/20 14:00 Respiratory Rate 20 07/25/20 14:00 Blood Pressure 156/73 07/25/20 14:00 O2 Sat by Pulse Oximetry (%) 97 07/25/20 14:00 Constitutional: Yes: Calm Eyes: Yes: Conjunctiva Clear HENT: Yes: Atraumatic Neck: Yes: Supple Cardiovascular: Yes: S1, S2 Respiratory: Yes: CTA Bilaterally Gastrointestinal: Yes: Normal Bowel Sounds, Soft Genitourinary: Yes: WNL Musculoskeletal: Yes: WNL Edema: No Wound/Incision: Yes: Dressing Dry and Intact Neurological: Yes: Oriented Psychiatric: Yes: Oriented Labs: CBC, BMP 07/23/20 07:10 07/23/20 07:10 INR, PTT INR 1.21 (0.83-1.09) H 07/18/20 01:10 Problem List - Problems (1) Diabetic foot infection Code(s): E11.628 - TYPE 2 DIABETES MELLITUS WITH OTHER SKIN COMPLICATIONS; L08.9 - LOCAL INFECTION OF THE SKIN AND SUBCUTANEOUS TISSUE, UNSP (2) CKD (chronic kidney disease) Code(s): N18.9 - CHRONIC KIDNEY DISEASE, UNSPECIFIED Qualifiers: Chronic kidney disease stage: stage 2 (mild) Qualified Code(s): N18.2 - Chronic kidney disease, stage 2 (mild) (3) HTN (hypertension) Code(s): I10 - ESSENTIAL (PRIMARY) HYPERTENSION Assessment/Plan Current Medications Generic Name Dose Route Start Last Admin Trade Name Freq PRN Reason Stop Dose Admin Atorvastatin Calcium 20 mg 07/20/20 22:00 07/24/20 22:01 Lipitor - PO 20 mg HS FIDELINA Administration Cholecalciferol 1,000 unit 07/21/20 10:00 07/25/20 10:17 Vitamin D3 - PO 1,000 unit DAILY FIDELINA Administration Clopidogrel Bisulfate 75 mg 07/22/20 10:00 07/25/20 10:15 Plavix - PO 75 mg DAILY FIDELINA Administration Gabapentin 300 mg 07/20/20 22:00 07/25/20 10:16 Neurontin - PO 300 mg BID FIDELINA Administration Ceftriaxone Sodium 2 gm/ 100 mls @ 200 mls/hr 07/23/20 13:30 07/25/20 10:15 Dextrose IVPB 200 mls/hr DAILY FIDELINA Administration Protocol Insulin Aspart 1 vial 07/20/20 16:30 07/25/20 11:31 Novolog Vial Sliding Scale - SQ 2 units ACHS FIDELINA Administration Protocol Levofloxacin 250 mg 07/24/20 06:00 07/25/20 06:36 Levaquin - PO 250 mg DAILY@0600 FIDELINA Administration Lisinopril 5 mg 07/21/20 10:00 07/25/20 10:16 Prinivil PO 5 mg DAILY FIDEILNA Administration Metoprolol Succinate 25 mg 07/21/20 10:00 07/25/20 10:17 Toprol Xl - PO 25 mg DAILY [facility] Administration Mupirocin 1 applic 07/26/20 10:00 Bactroban 2% Ointment - TP DAILY [facility] Rivaroxaban 2.5 mg 07/22/20 10:00 07/25/20 10:16 Xarelto PO 2.5 mg BID FIDELINA Administration Impression 1. CKD 2. dm 3. htn 4. hld 5. osteo 6. pvd 7. protienuria Plan - cont amador - will need outpt follow up - wound care - abx per medical team - avoid nsaids
--- NOTE | 2020-07-25 19:40 | DS ---
Physical Exam: SUBJECTIVE: Patient seen and examined. No acute events overnight. Pt has no pain. Denies fevers, chills, shortness of breath, chest pain, abdominal pain. Pt has persistent numbness of b/l feet that has not changed. OBJECTIVE: Vital Signs Period Temp Pulse Resp BP Sys/[place] Pulse Ox Last 24 Hr 97.8 F-99.1 F 62-70 20-20 156-168/59-75 97-99 PHYSICAL EXAM GENERAL: The patient is awake, alert, and fully oriented, in no acute distress. HEENT: NCAT, EOMI. Moist mucus membranes. LUNGS: Breath sounds equal, clear to auscultation bilaterally, no wheezes HEART: Regular rate and rhythm, S1, S2 without murmur. ABDOMEN: Soft, nontender, nondistended, bowel sounds present in all 4 quadrants. EXTREMITIES: warm, well-perfused, no edema. R foot bandaged. Dry. No active drainage or bleeding. SKIN: Warm, dry. LABS Laboratory Last Values WBC 8.0 K/mm3 (4.0-10.0) 07/23/20 07:10 RBC 3.29 M/mm3 (4.00-5.60) L 07/23/20 07:10 Hgb 9.4 GM/dL (11.7-16.9) L 07/23/20 07:10 Hct 28.1 % (35.4-49) L 07/23/20 07:10 MCV 85.5 fl (80-96) 07/23/20 07:10 MCH 28.6 pg (25.7-33.7) 07/23/20 07:10 MCHC 33.4 g/dl (32.0-35.9) 07/23/20 07:10 RDW 14.8 % (11.9-15.9) 07/23/20 07:10 Plt Count 232 K/MM3 (134-434) 07/23/20 07:10 MPV 8.0 fl (7.5-11.1) 07/23/20 07:10 Absolute Neuts (auto) 5.3 K/mm3 (1.5-8.0) 07/22/20 07:34 Neutrophils % 65.2 % (42.8-82.8) 07/22/20 07:34 Lymphocytes % 20.3 % (8-40) D 07/22/20 07:34 Monocytes % 11.9 % (3.8-10.2) H 07/22/20 07:34 Eosinophils % 2.2 % (0-4.5) 07/22/20 07:34 Basophils % 0.4 % (0-2.0) 07/22/20 07:34 Nucleated RBC % 0 % (0-0) 07/22/20 07:34 Retic Count 1.77 % (0.5-1.5) H 07/18/20 11:33 PT with INR 14.30 SEC (9.7-13.0) H 07/18/20 01:10 INR 1.21 (0.83-1.09) H 07/18/20 01:10 PTT (Actin FS) 38.2 SECONDS (25.2-36.5) H 07/18/20 01:10 Sodium 138 mmol/L (136-145) 07/23/20 07:10 Potassium 4.1 mmol/L (3.5-5.1) 07/23/20 07:10 Chloride 106 mmol/L (98-107) 07/23/20 07:10 Carbon Dioxide 26 mmol/L (21-32) 07/23/20 07:10 Anion Gap 7 MMOL/L (8-16) L 07/23/20 07:10 BUN 25.2 mg/dL (7-18) H 07/23/20 07:10 Creatinine 1.4 mg/dL (0.55-1.3) H 07/23/20 07:10 Est GFR (CKD-EPI)AfAm 65.09 07/23/20 07:10 Est GFR (CKD-EPI)NonAf 56.16 07/23/20 07:10 POC Glucometer 208 UNITS (80-120) 07/25/20 11:26 Random Glucose 150 mg/dL (74-106) H 07/23/20 07:10 Lactic Acid 0.9 mmol/L (0.4-2.0) 07/18/20 01:10 Calcium 8.3 mg/dL (8.5-10.1) L 07/23/20 07:10 Phosphorus 3.9 mg/dL (2.5-4.9) 07/22/20 07:34 Magnesium 2.1 mg/dL (1.8-2.4) 07/22/20 07:34 Iron 29 ug/dL (50-175) L 07/18/20 11:33 Ferritin 62.3 ng/ml (8-388) 07/18/20 11:33 Total Bilirubin 0.3 mg/dL (0.2-1) 07/22/20 07:34 AST 11 U/L (15-37) L 07/22/20 07:34 ALT 14 U/L (13-61) 07/22/20 07:34 Alkaline Phosphatase 72 U/L (45-117) 07/22/20 07:34 Creatine Kinase 95 U/L (26-308) 07/18/20 01:10 Troponin I < 0.02 ng/ml (0.00-0.05) 07/18/20 01:10 Total Protein 6.4 g/dl (6.4-8.2) 07/22/20 07:34 Albumin 2.7 g/dl (3.4-5.0) L 07/22/20 07:34 Urine Color Yellow 07/18/20 02:41 Urine Appearance Clear 07/18/20 02:41 Urine pH 5.0 (5.0-8.0) 07/18/20 02:41 Ur Specific [place] 1.005 (1.010-1.035) L 07/18/20 02:41 Urine Protein N (NEGATIVE) 07/18/20 02:41 Urine Glucose (UA) 3+ (NEGATIVE) H 07/18/20 02:41 Urine Ketones Trace (NEGATIVE) H 07/18/20 02:41 Urine Blood N (NEGATIVE) 07/18/20 02:41 Urine Nitrite Negative (NEGATIVE) 07/18/20 02:41 Urine Bilirubin Negative (NEGATIVE) 07/18/20 02:41 Urine Urobilinogen 0.2 mg/dL (0.2-1.0) 07/18/20 02:41 Ur Leukocyte Esterase N (NEGATIVE) 07/18/20 02:41 COVID-19 (ELIAS) Not detected (Not Detected) 07/18/20 08:01 HOSPITAL COURSE: 54 year old male patient with past medical history that includes HTN, HLD, DM, PVD s/p stent placement, right big toe amputation, right 2nd toe partial amputation, and charcot joints, who presented to the ED w/ R 2nd toe foul smelling wound for 2 days with erythema and with a R 3rd toe ulceration with swelling and erythema. Pt admitted for osteomyelitis. Amputation done 07/20/2020. Wound culture shows staph aureus, Strep Agalactiae Group B and Pseudomonas Species. PICC line placed today and pt was discharged w/ IV ceftriaxone for 6 weeks and PO levaquin for 2 weeks. He will see podiatry tomorrow. Recommended proper wound care and minimal weight bearing activity. Pt is medically optimized for discharge to home. Date of Admission:07/18/20 Date of Discharge: 07/25/20 Minutes to complete discharge: 36 Discharge Summary Problems reviewed: Yes Reason For Visit: DIABETIC FOOT INFECTION, INFECTION OF TOE Condition: Improved - Instructions Diet, Activity, Other Instructions: You were admitted to the hospital because of the infected right 2nd toe. We evaluated you with lab work, blood work, and imaging, including an MRI, and we had the specialist doctors see you. Based on the evaluation, you had osteomyelitis of your right 2nd toe. We treated you with surgery to remove the infected toe, and gave you medication including antibiotics. You will need both 36 days of IV antibiotics and 2 weeks of oral antibiotics. Recommendation Please make sure that you minimize any weightbearing activity. Please apply bactroban to incision site and third digit, followed by dry sterile dressing with sterile gauze, kerlix and amador wrap. Partial weight bearing right heel with surgical offloading shoe. Medications Please START taking the antibiotic Levaquin 250mg once daily by mouth for 2 weeks from until 08/06/2020. You will also need to receive 36 days of the antibiotic IV Ceftriaxone until 08/30/2020. You will have this medication administered to you via your tunneled catheter. Please continue all of your other home medications as prescribed. Follow ups [facility] with Vascular surgeon Dr. Zapien this Saturday07/26/20. dressing will be changed there, and you will be given wound care and dressing change instructions Please follow up with the [facility] Dr. Eliot Hawkins tomorrow, . Please follow up with your Primary Care physician Dr. David Lindo, within 1 week. Additional Instructions: -You are being discharged to your home. -Please return to the Emergency Department if you experience worsening pain, fevers, chills, shortness of breath, or chest pain, or if you experience any worsening, new or concerning symptoms. - please come back to IR department for removal of the tunneled catheter. please call [phone] and ask to be referred to IR department to make the appointment for removal - partial weight baring on your right heal with the surgical shoe, only when necessary. use your special walker to avoid weight on your foot - You need CMP, and ESr weekly while on the antibiotics. results to be faxed to dr. Wu by the visiting nurse. Referrals: Eliot Hawkins MD [Staff Physician] - 1 Week David Lindo [Primary Care Provider] - 1 Week Grant Zapien MD [Non Staff, Medical] - 1 Week Disposition: HOME - Home Medications Comprehensive Discharge Medication List: Ambulatory Orders Atorvastatin Ca [Lipitor] 20 mg PO HS 10/13/19 Cinnamon Bark [Cinnamon] 1 tab PO DAILY 10/13/19 Clopidogrel Bisulfate [Plavix] 75 mg PO DAILY 10/13/19 Empagliflozin [Jardiance] 10 mg PO DAILY 10/13/19 Metoprolol Succinate 1 tab PO DAILY 10/13/19 Rivaroxaban [Xarelto] 2.5 mg PO BID 10/13/19 Sitagliptin Phosphate [Januvia] 100 mg PO DAILY 10/13/19 Vitamin D - 1,000 units PO DAILY 10/13/19 Gabapentin [Neurontin -] 300 mg PO BID capsule 06/02/20 Lisinopril 5 mg PO DAILY #30 tablet 06/02/20 Metformin HCl [Glucophage] 500 mg PO BID 06/21/20 Ceftriaxone [Rocephin 2Gm Ivpb (Pre-Docked)] 2 gm IVPB DAILY #1 vial 07/25/20 Levofloxacin [Levaquin] 250 mg PO DAILY 14 Days #14 tablet 07/25/20 This patient is new to me today: Yes Date on this admission: 07/25/20 Emergency Visit: No Critical Care patient: No - Discharge Referral Referred to [facility] No ATTENDING PHYSICIAN STATEMENT I saw and evaluated the patient. I reviewed the resident's note and discussed the case with the resident. I agree with the resident's findings and plan as documented. SUBJECTIVE: OBJECTIVE: ASSESSMENT AND PLAN:
[2020-07-26] MEDS ORDERED: MUPIROCIN 2% TOPICAL OINTMENT 22 GM TUBE TP SCH (10:00)
== END 2020-07-25 16:35 | disposition home or self-care (01) | DRG 617 ==
LOC: JER 22:54 → JERBED 07-18 03:21 → J6WEST-2 07-19 00:49 → J5S 07-19 15:21
PROVIDERS: ADMIT Internal Medicine; ATTEND Internal Medicine
PROC: 0Y6R0Z0 Detachment at Right 2nd Toe, Complete, Open Approach (ICD-10-PCS; principal; 2020-07-20 11:00)
PROC: 0JHN3XZ Insertion of Tunneled Vascular Access Device into Right Lower Leg Subcutaneous Tissue and Fascia, Percutaneous Approach (ICD-10-PCS; 2020-07-25)
DX: E11.69 Type 2 diabetes mellitus with other specified complication (principal); M86.171 Other acute osteomyelitis, right ankle and foot; E46 Unspecified protein-calorie malnutrition; E11.51 Type 2 diabetes mellitus with diabetic peripheral angiopathy without gangrene; I12.9 Hypertensive chronic kidney disease with stage 1 through stage 4 chronic kidney disease, or unspecified chronic kidney disease; N18.2 Chronic kidney disease, stage 2 (mild); E11.22 Type 2 diabetes mellitus with diabetic chronic kidney disease; D64.9 Anemia, unspecified; E78.5 Hyperlipidemia, unspecified; E66.9 Obesity, unspecified; Z68.34 Body mass index [BMI] 34.0-34.9, adult; E88.09 Other disorders of plasma-protein metabolism, not elsewhere classified
CPT/HCPCS: 36415; 36558; 71045-TC-FY; 73630-TC-RT-FY; 73700-TC-RT; 73721-RT-TC; 77001-TC-FY; 80048; 80053; 81003; 82550; 82728; 82962; 83540; 83605; 83735; 84100; 84484; 85025; 85027; 85045; 85610; 85730; 87040; 87070; 87075; 87076; 87077; 87086; 87186; 87205; 88305-TC; 88311-TC; 93005; 93010; 94760; 99285-25; C1751; J1644; U0003

== ENCOUNTER 2020-09-01 08:48 | Day surgery (SDC) | payer BC, OTHER ==
--- OUTSIDE RECORDS SUMMARY | 2020-08-26 15:57 | XMS ---
:1965 Author Organization [facility] Support Name Relationship Address Phone [place] Unavailable [place] [address] SE, SELF-EMPLOYED Unavailable Unavailable Unavailable SE Unavailable Unavailable Unavailable ANDREW STEPHENS [address] [phone] [place] [address] ANDREW STEPHENS Spouse [address] [place] [address] Re-disclosure Warning The records that you are about to access may contain information from federally- assisted alcohol or drug abuse programs. If such information is present, then the following federally mandated warning applies: This information has been disclosed to you from records protected by federal confidentiality rules (42 CFR part 2). The federal rules prohibit you from making any further disclosure of this information unless further disclosure is expressly permitted by the written consent of the person to whom it pertains or as otherwise permitted by 42 CFR part 2. A general authorization for the release of medical or other information is NOT sufficient for this purpose. The Federal rules restrict any use of the information to criminally investigate or prosecute any alcohol or drug abuse patient.The records that you are about to access may contain highly sensitive health information, the redisclosure of which is protected by Article 27-F of the [facility] Public Health law. If you continue you may haveaccess to information: Regarding HIV / AIDS; Provided by facilities licensed or operated by the [facility] Office of Mental Health; or Provided by the [facility] Office for People With Developmental Disabilities. If such information is present, then the following [facility] mandated warning applies: This information has been disclosed to you from confidential records which are protected by state law. State law prohibits you from making any further disclosure of this information without the specific written consent of the person to whom it pertains, or as otherwise permitted by law. Any unauthorized further disclosure in violation of state law may result in a fine or nursing home sentence or both. A general authorization for the release of medical or other information is NOT sufficient authorization for further disclosure. Insurance Providers Payer Policy type Policy ID Covered Covered green party's Policy Pl an name / Coverage green party ID relationship to [facility] type [facility] [employer] PPO [id number] SP [id number] [facility] CBP [id number] SP [id number] OUTPT BC PPO [id number] SP [id number] BC PPO [id number] SP [id number] [facility] CBP [id number] SP [id number] OUTPT BC PPO [id number] SP [id number] [facility] CBP [id number] SP [id number] OUTPT Results ID Date Data Source [id number] 07/18/2020 08:01:00 AM EDT [facility] Name Value Range Interpretation Description Data Sup porting Code Source(s) Document(s ) SARS [facility] coronavirus 2 RNA This lab was ordered by [facility] and reported by [facility]. ID Date Data Source [id number] 05/30/2020 11:40:00 AM EDT [facility] Name Value Range Interpretation Description Data Sup porting Code Source(s) Document(s ) SARS [facility] CORONAVIRUS 2 RNA This lab was ordered by [facility] and reported by [facility]. Procedure
[2020-08-31 10:21] VITALS: BMI 33.0
[~2020-09-01 08:48] MED LIST: LIDOCAINE HCL 1%, 10 MG/ML (20ML VIAL) SNB ONE
[2020-09-01] MEDS ORDERED: HEPARIN NA (PORCINE) 5,000 UNITS/ML 1ML VIAL ONE ×2 (10:55→11:16)
[2020-09-01] MEDS ORDERED: LIDOCAINE HCL 1%, 10 MG/ML (20ML VIAL) ONE (10:55)
[2020-09-01] MEDS ORDERED: MIDAZOLAM HCL 2 MG/2 ML SINGLE DOSE VIAL ONE ×2 (11:15)
[2020-09-01] MEDS ORDERED: ceFAZolin SODIUM 1 GM VIAL IVPB ONE (11:20)
[2020-09-01] MEDS ORDERED: ceFAZolin SODIUM 1 GM VIAL ONE (11:22)
--- NOTE | 2020-09-01 11:25 | HP ---
Admitting History and Physical - Admission Chief Complaint: right foot ulcer. Non-healing amputation site. History Source: Patient Limitations to Obtaining History: No Limitations - Past Medical History Cardiovascular: Yes: HTN, Hyperlipdemia Renal/: Yes: Renal Inusuff Endocrine: Yes: Diabetes Mellitus - Smoking History Smoking history: Former smoker Have you smoked in the past 12 months: No If you are a former smoker, when did you quit?: 2017 Home Medications - Allergies Allergies/Adverse Reactions: Allergies Allergy/AdvReac Type Severity Reaction Status Date / Time No Known Allergies Allergy Verified 08/31/20 09:33 - Home Medications Home Medications: Ambulatory Orders Atorvastatin Ca [Lipitor] 20 mg PO HS 10/13/19 Cinnamon Bark [Cinnamon] 1 tab PO DAILY 10/13/19 Clopidogrel Bisulfate [Plavix] 75 mg PO DAILY 10/13/19 Empagliflozin [Jardiance] 10 mg PO DAILY 10/13/19 Metoprolol Succinate 1 tab PO DAILY 10/13/19 Rivaroxaban [Xarelto] 2.5 mg PO BID 10/13/19 Sitagliptin Phosphate [Januvia] 100 mg PO DAILY 10/13/19 Vitamin D - 1,000 units PO DAILY 10/13/19 Gabapentin [Neurontin -] 300 mg PO BID capsule 06/02/20 Lisinopril 5 mg PO DAILY #30 tablet 06/02/20 Metformin HCl [Glucophage] 500 mg PO BID 06/21/20 Ceftriaxone [Rocephin 2Gm Ivpb (Pre-Docked)] 2 gm IVPB DAILY #1 vial 07/25/20 Review of Systems - Review of Systems Constitutional: reports: No Symptoms Eyes: reports: No Symptoms HENT: reports: No Symptoms Neck: reports: No Symptoms Cardiovascular: reports: No Symptoms Respiratory: reports: No Symptoms Gastrointestinal: reports: No Symptoms Genitourinary: reports: No Symptoms Breasts: reports: No Symptoms Reported Musculoskeletal: reports: No Symptoms Integumentary: reports: No Symptoms Neurological: reports: No Symptoms Endocrine: reports: No Symptoms Hematology/Lymphatic: reports: No Symptoms Psychiatric: reports: No Symptoms Physical Examination Vital Signs: Vital Signs Temperature 96.6 F L 09/01/20 09:23 Pulse Rate 69 09/01/20 09:23 Respiratory Rate 18 09/01/20 09:23 Blood Pressure 96/48 L 10/01/20 09:23 O2 Sat by Pulse Oximetry (%) 98 09/01/20 09:24 Constitutional: Yes: Well Nourished, No Distress, Calm Eyes: Yes: WNL, Conjunctiva Clear, EOM Intact HENT: Yes: WNL, Atraumatic, Normocephalic Neck: Yes: WNL, Supple, Trachea Midline Cardiovascular: Yes: WNL, Regular Rate and Rhythm Respiratory: Yes: WNL, Regular, CTA Bilaterally Gastrointestinal: Yes: WNL, Normal Bowel Sounds Musculoskeletal: Yes: WNL Extremities: Yes: WNL Edema: No Peripheral Pulses WNL: No (dopplerable ) Integumentary: Yes: WNL Neurological: Yes: WNL, Alert, Oriented ...Motor Strength: WNL Psychiatric: Yes: WNL Problem List - Problems (1) Right foot ulcer Assessment/Plan: For angiogram today Grant Zapien DO Problems reviewed: Yes Code(s): L97.519 - NON-PRS CHRONIC ULCER OTH PRT RIGHT FOOT W UNSP SEVERITY
[2020-09-01] MEDS ORDERED: LIDOCAINE HCL 1%, 10 MG/ML (20ML VIAL) NR ONE (12:00)
[2020-09-01] MEDS ORDERED: LIDOCAINE HCL 1%, 10 MG/ML (20ML VIAL) SNB ONE (12:17)
--- NOTE | 2020-09-01 13:35 | OP ---
Operative Note - Note: Operative Date: 09/01/20 Pre-Operative Diagnosis: Right foot non healing ulcer Operation: Aortogram, RLE angiogram, SFA angioplasty Findings: SFA stent occlusion Post-Operative Diagnosis: Same as Pre-op Surgeon: Grant Zapien Anesthesia: MAC Estimated Blood Loss (mls): 50 Operative Report Dictated: Yes
[2020-09-01 15:50] VITALS: TEMP 97.6
[2020-09-01 15:55] VITALS: BP 118/59; PULSE 68
--- NOTE | 2020-09-07 08:13 | OP ---
DATE OF OPERATION: 09/01/2020 PREOPERATIVE DIAGNOSIS: Nonhealing right foot ulcer. POSTOPERATIVE DIAGNOSIS: Nonhealing right foot ulcer. PROCEDURE: Aortogram, right lower extremity angiogram, superficial femoral artery angioplasty. SURGEON: Grant Hensley DO ANESTHESIA: Fractional. BLOOD LOSS: 30 mL INDICATION: Patient is a 55-year-old male that has a nonhealing amputation site on his right foot. He had been operated on before at [facility] where he had an SFA stent placed and he had a stent graft placed in his aorta. Knowing that he has a stent graft placed in his aorta we decided that he would need a retrograde approach for his SFA where preoperative ultrasound showed that his stents were not patent. Patient was cleared by medicine and cardiology. Patient was found to be COVID-19 negative. Patient came in through ambulatory surgery. Patient was consented for the procedure understanding all the risks, benefits and alternatives and was then taken to the operating room. DESCRIPTION OF PROCEDURE: Once in the operating room, he was laid in a prone manner and the area of the right popliteal fossa was prepped and draped in a sterile surgical manner. We then went ahead and under ultrasound guidance visualized the right popliteal artery. Ten mL of lidocaine 1% were injected there. We then took our micropuncture needle, punctured the right popliteal artery. Micropuncture wire was inserted. Micropuncture sheath was inserted and traditional short 6-Mongolian sheath was inserted. Five thousand units of IV heparin were administered to the patient. We then placed a 0.035 stiff guidewire up into the SFA and we went through the occluded stent and placed the wire into the iliac artery. Quick-Cross catheter followed and we shot an angiogram of the right lower extremity showing that the SFA stent was occluded. We then went ahead and used a 6 x 10 Ultraverse balloon and performed an angioplasty to the SFA stent. Completion angiogram now showed that the SFA stent was patent and there was good flow all the way down through the SFA into the popliteal artery and the tibial arteries. Completion angiogram showed that there was good flow going into the AT and into the foot. At this point no more intervention was needed. We removed our sheath. Pressure was held over the right popliteal fossa for about 10 minutes. Protamine 20 mg was also given to the patient. The area was wet and dried and Dermabond was placed. Patient tolerated the procedure with no complications. Patient transferred to PACU in stable condition. GRANT HENSLEY DO [id number]
== END 2020-09-01 15:10 | disposition home or self-care (01) ==
LOC: JASU-SURG 08:48
PROVIDERS: ATTEND Surgery Vascular Surgery
PROC: 047K3ZZ Dilation of Right Femoral Artery, Percutaneous Approach (ICD-10-PCS; principal; 2020-09-01 10:30)
DX: E11.621 Type 2 diabetes mellitus with foot ulcer (principal); L97.519 Non-pressure chronic ulcer of other part of right foot with unspecified severity; I77.89 Other specified disorders of arteries and arterioles; T82.856A Stenosis of peripheral vascular stent, initial encounter; I73.9 Peripheral vascular disease, unspecified; Z79.84 Long term (current) use of oral hypoglycemic drugs
CPT/HCPCS: 37224; C1725; 76000-TC-FY; 82962; 94760; J1644

== ENCOUNTER 2021-05-20 17:58 | Emergency (ER) | payer BC, OTHER ==
[2021-05-20 18:10] VITALS: BP 136/65; PULSE 82; TEMP 98.3; BMI 35.5
== END 2021-05-20 20:07 | disposition home or self-care (01) ==
LOC: JER 17:58 → JERFT 17:58
DX: S92.415A Nondisplaced fracture of proximal phalanx of left great toe, initial encounter for closed fracture (principal)
CPT/HCPCS: 73660-TC-LT-FY; 99284-25

== ENCOUNTER 2021-09-22 15:57 | Emergency (ER) | payer BC, OTHER ==
[2021-09-22 16:03] VITALS: BP 138/86; PULSE 83; TEMP 97.8; BMI 35.5
== END 2021-09-22 19:16 | disposition home or self-care (01) ==
LOC: JERFT 15:57
DX: S31.501A Unspecified open wound of unspecified external genital organs, male, initial encounter (principal); L66.2 Folliculitis decalvans; E11.9 Type 2 diabetes mellitus without complications; W26.8XXA Contact with other sharp object(s), not elsewhere classified, initial encounter
CPT/HCPCS: 99281-25

== ENCOUNTER 2022-06-14 04:08 | Day surgery (SDC) | payer BC, OTHER ==
[2022-06-11 15:33] VITALS: BMI 35.5
[2022-06-14] MEDS ORDERED: HEPARIN NA (PORCINE) 5,000 UNITS/ML 1ML VIAL ONE (12:11)
[2022-06-14] MEDS ORDERED: LIDOCAINE HCL 1%, 10 MG/ML (20ML VIAL) ONE (12:11)
[2022-06-14] MEDS ORDERED: LIDOCAINE HCL/PF 2% SDV 5ML VIAL ONE (12:20)
[2022-06-14] MEDS ORDERED: PROPOFOL 20 ML ONE (12:21)
[2022-06-14] MEDS ORDERED: MIDAZOLAM HCL 2 MG/2 ML SINGLE DOSE VIAL ONE (12:21)
[2022-06-14] MEDS ORDERED: LIDOCAINE HCL 1%, 10 MG/ML (20ML VIAL) NR ONE ×3 (12:23→12:54)
[2022-06-14] MEDS ORDERED: HEPARIN NA (PORCINE) 5,000 UNITS/ML 1ML VIAL IP ONE ×2 (12:23→12:54)
[2022-06-14] MEDS ORDERED: ceFAZolin SODIUM 1 GM VIAL ONE (12:49)
[2022-06-14] MEDS ORDERED: ceFAZolin SODIUM 1 GM VIAL IVPB ONE (12:54)
[2022-06-14] MEDS ORDERED: ONDANSETRON 4 MG/2 ML VIAL IVPUSH PRN (13:15)
[2022-06-14] MEDS ORDERED: oxyCODONE HCL 5 MG TABLET PO PRN (13:15)
[2022-06-14] MEDS ORDERED: LACTATED RINGERS SOLUTION 1,000 ML IV SCH (13:15)
[2022-06-14 14:59] VITALS: BP 129/78; PULSE 71; TEMP 97.7
== END 2022-06-14 14:45 | disposition home or self-care (01) ==
LOC: JASU-SURG 04:08
PROVIDERS: ATTEND Surgery Vascular Surgery
PROC: B41DYZZ Fluoroscopy of Aorta and Bilateral Lower Extremity Arteries using Other Contrast (ICD-10-PCS; principal; 2022-06-14 13:30)
DX: I70.211 Atherosclerosis of native arteries of extremities with intermittent claudication, right leg (principal)
CPT/HCPCS: 75710-TC-FY; 76000-TC-FY; 82962; 94760; J1644

== ENCOUNTER 2023-10-17 04:17 | Day surgery (SDC) | payer BC, OTHER ==
[2023-10-16 13:18] VITALS: BMI 35.5
[2023-10-17] MEDS ORDERED: LIDOCAINE HCL 1%, 10 MG/ML (20ML VIAL) ONE ×2 (07:15→12:25)
[2023-10-17] MEDS ORDERED: HEPARIN NA (PORCINE) 5,000 UNITS/ML 1ML VIAL ONE ×2 (07:16→12:25)
[2023-10-17 09:15] LABS: BASO % 0.6 % (0-2.0); EOS % 1.8 % (0-4.5); HEMATOCRIT 35.2 % (35.4-49); HEMOGLOBIN 11.3 GM/dL (11.7-16.9); LYMPH % 17.2 % (8-40); MCH 28.2 pg (25.7-33.7); MCHC 32.2 g/dl (32.0-35.9); MEAN CELL VOLUME 87.4 fl (80-96); MEAN PLT VOLUME 7.6 fl (7.5-11.1); MONO % 9.1 % (3.8-10.2); NEUT % 71.3 % (42.8-82.8); PLATELET COUNT 268 10^3/uL (134-434); RBC 4.03 M/mm3 (4.00-5.60); RDW 16.1 % (11.9-15.9); WHITE BLOOD COUNT 8.5 K/mm3 (4.0-10.0)
[2023-10-17 09:24] VITALS: RESP 18
[2023-10-17 09:26] LABS: INR 1.1 (0.83-1.09); PROTHROMBIN TIME (PATIENT) 12.8 SEC (9.7-13.0)
[2023-10-17 09:36] LABS: POTASSIUM 5.3 mmol/L (3.5-5.1)
[2023-10-17 09:38] LABS: CALCIUM 8.8 mg/dL (8.5-10.1)
[2023-10-17 09:39] LABS: ALBUMIN 3.3 g/dl (3.4-5.0); BLOOD UREA NITROGEN 44.7 mg/dL (7-18)
[2023-10-17 09:42] LABS: CREATININE 2.6 mg/dL (0.55-1.3)
[2023-10-17 09:43] LABS: BILIRUBIN,TOTAL 0.4 mg/dL (0.2-1); TOT PROT 7.1 g/dl (6.4-8.2)
[2023-10-17] MEDS ORDERED: FENTANYL CITRATE/PF 50 MCG/ML VIAL ONE ×2 (12:37→13:09)
[2023-10-17] MEDS ORDERED: PROPOFOL 20 ML ONE (12:38)
[2023-10-17] MEDS ORDERED: MIDAZOLAM HCL 2 MG/2 ML SINGLE DOSE VIAL ONE ×2 (12:38→12:57)
[2023-10-17] MEDS ORDERED: SUCCINYLCHOLINE CHLORIDE 200 MG/10 ML SYRINGE ONE (12:38)
[2023-10-17] MEDS ORDERED: ceFAZolin SODIUM 1 GM VIAL IVPB ONE (13:00)
[2023-10-17] MEDS ORDERED: IOVERSOL 320 MG/ML ML IV ONE (13:07)
[2023-10-17] MEDS ORDERED: LIDOCAINE HCL 1%, 10 MG/ML (20ML VIAL) INF ONE (13:07)
[2023-10-17 16:48] VITALS: BP 146/70; PULSE 72; TEMP 97.7
== END 2023-10-17 16:20 | disposition home or self-care (01) ==
LOC: JASU-SURG 04:17
PROVIDERS: ATTEND Surgery Vascular Surgery
PROC: B41DYZZ Fluoroscopy of Aorta and Bilateral Lower Extremity Arteries using Other Contrast (ICD-10-PCS; principal; 2023-10-17 12:00)
DX: I70.212 Atherosclerosis of native arteries of extremities with intermittent claudication, left leg (principal)
CPT/HCPCS: 36415; 76000-TC-FY; 80053; 82010; 82962; 85025; 85610; C1769; J1644